=== PATIENT | male | born 1935 | race Caucasian/White ===

== ENCOUNTER → 2017-11-28 14:34 | Outpatient (CLI) | payer MEDICARE, SELFPAY ==
--- NOTE | 2017-11-28 14:36 | DI.RAD.S_ITS ---
PROCEDURE: XR HAND LT MIN 3V INDICATIONS: Bilateral hand OA TECHNIQUE: 3 views of the hand(s) acquired. COMPARISON: None. FINDINGS: Bones: Bones are diffusely osteopenic. There is diffuse interphalangeal joint space narrowing and osteophytosis. 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 A periarticular erosion is present at the distal aspect of the proximal phalanx of the third digit. No other erosive lesions in visualized. Soft tissues: No suspicious soft tissue calcifications. IMPRESSION: 1. Osteopenia and osteoarthritis. 2. Solitary erosion of the proximal phalanx of the third digit which may be associated with erosive arthritis. Please correlate clinically. Dictated by: Lakshmi Kirkpatrick M.D. on 11/28/2017 at 16:32 Approved by: Lakshmi Kirkpatrick M.D. on 11/28/2017 at 16:33
--- NOTE | 2017-11-28 14:36 | DI.RAD.S_ITS ---
PROCEDURE: XR HAND RT MIN 3V INDICATIONS: Bilateral hand OA TECHNIQUE: 3 views of the hand(s) acquired. COMPARISON: None. FINDINGS: Bones: Bones osteopenic. No acute fracture dislocation. There is extensive distal interphalangeal joint space narrowing and osteophytosis and mild proximal interphalangeal joint space narrowing. 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 No periarticular erosions. Soft tissues: No suspicious soft tissue calcifications. IMPRESSION: Right hand osteoarthritis. Dictated by: Lakshmi Kirkpatrick M.D. on 11/28/2017 at 16:34 Approved by: Lakshmi Kirkpatrick M.D. on 11/28/2017 at 16:35
== END ==
PROVIDERS: Family Provider Internal Medicine; PCP Internal Medicine; Visit Provider Physical Medicine & Rehabilitation
DX: M18.0 Bilateral primary osteoarthritis of first carpometacarpal joints (principal); M85.842 Other specified disorders of bone density and structure, left hand; M85.841 Other specified disorders of bone density and structure, right hand
CPT/HCPCS: 73130

== ENCOUNTER → 2017-12-01 10:49 | Outpatient (CLI) | payer MEDICARE, SELFPAY | PROVIDERS: Family Provider Internal Medicine; PCP Internal Medicine; Visit Provider Internal Medicine ==

== ENCOUNTER → 2017-12-07 13:58 | Outpatient (CLI) | payer MEDICARE, SELFPAY ==
--- NOTE | 2017-12-07 | OV.WND_ITS ---
Progress Note Details Patient Name: Tyler English Patient Number: [id number] PatientPatientDate: 12/07/2017 Clinician: Elizabeth Ba Clinician Cosigner: Holly Adair Physician / Chilling Hood Operator: Bro Mccarthy SUBJECTIVE Chief Complaint This information was obtained from the patient Non-healing wound to left leg, post MOHS Allergies NKDA HPI This information was obtained from the patient 12/07/17. Seen by Dr. Mccarthy. The patient's new to our clinic and presents with a left lower leg surgical wound following a Moh's procedure performed by Dr. Du'pily last . Due to the size of the wound it was unable to be sutured so will need to heal through secondary intention. The patient does not report pain or drainage from the site but does have a history of PAD in the leg with stents plus diabetes. In general however he's very active and healthy. Family History This information was obtained from the patient Cancer - Sibling, Diabetes - Father, Heart Disease - Mother, Father, Hypertension - Mother, Father, Lung Disease - Sibling, Seizures - Sibling Social History This information was obtained from the patient Former smoker - 1976, Alcohol Use - occasional, Caffeine Use - 4, Children - 3, Lives in - private home/ [place] in winter, Marital Status, Retired - sailed Past Medical History This information was obtained from the patient Patient has a medical history of: Arthritis Coronary Artery Disease (CAD) Type II Diabetes hearing loss Neuropathy Basal Cell Skin Cancer Surgical History This information was obtained from the patient Patient has a surgical history of: Mastectomy Aorta replacement, aneurysm repair Cholecystectomy R shoulder, rotator cuff. Coronary artery Bypass Complaints and Symptoms This information was obtained from the patient Patient complains of: General Notes: I have reviewed and concur with the Review of Systems and Past Family Social History documents completed by the clinician, I have reviewed and concur with the Wound Assessment document completed by the clinician Hematologic/Lymphatic: Bleeding Tendency Integumentary (Hair/Skin/Nails): Open Sore Prior Wound History: Bleeding, Drainage Patient denies complaints or symptoms related to: Cardiovascular (Central): Irregular heart beat Cardiovascular (Central/Peripheral): Intermittent Claudication, Lower extremity (leg) resting pain, Lower extremity (leg) swelling Constitutional Symptoms (General Health): Chills, Fever Ear/Nose/Mouth/Throat: Hearing Loss / Aid Hematologic/Lymphatic: Bleeding / Clotting Disorders Neurological: Loss of Protective Sensation Psychiatric: Memory Loss Respiratory: Shortness of Breath General Notes: Up to date Additional Information Does patient have a history of Cancer? Yes? Complete all questions.: Yes Location of Cancer: Skin Patient underwent Radiation Treatment? If yes, answer question below.: No Medications glipizide 5 mg tablet oral 2 2 tablet oral once daily Lipitor 20 mg tablet oral tablet oral once daily Diovan 80 mg tablet oral tablet oral once daily atenolol 25 mg tablet oral tablet oral once daily Centrum Silver 0.4 mg-300 mcg-250 mcg tablet oral tablet oral once daily Aspir-81 81 mg tablet,delayed release oral tablet,delayed release (DR/EC) oral once daily Plavix 75 mg tablet oral tablet oral once daily pantoprazole 40 mg tablet,delayed release oral tablet,delayed release (DR/EC) oral once daily zolpidem 10 mg tablet oral tablet oral take at bedtime isosorbide mononitrate ER 60 mg tablet,extended release 24 hr oral tablet extended release 24 hr oral once daily Vitamin D3 1,000 unit tablet oral tablet oral once daily OBJECTIVE Constitutional BP elevated; Afebrile; Alert and in no distress. Well developed. Alert. Clean appearing.. Height/Length: 66 in (167.64 cm), Weight: 177.6 lbs (80.73 kgs), BMI: 28.7, Temperature: 97.3 ?F (36.28 ?C), Pulse: 56 bpm, Respiratory Rate: 16 breaths/min, Blood Pressure: 171/66 mmHg, Capillary Blood Glucose: 122 mg/dl, Pulse Oximetry: 95 %. Ears, Nose, Mouth, and Throat: No clinically significant hearing loss on informal examination. Respiratory: No respiratory distress. Even respirations and without use of accessory muscles.. Cardiovascular: 1+ dorsalis pedis and posterior tibial on the right. Affected extremity exhibits no peripheral edema or cyanosis, is warm, and is well perfused. Capillary refill is less than 2 seconds. Integumentary (Hair, Skin) No periwound erythema, warmth, or significant drainage. No periwound rashes appreciated or noted otherwise.. Refer to appropriate clinician wound documentation for this visit; right lower leg wound extends to subcut with base partially covered with pink granulation, remainder fibrin and slough. Wound #1 Left, Anterior Leg is an acute Full Thickness Surgical Wound and has received a status of Not Healed. Initial wound encounter measurements are 2.3cm length x 2.5cm width x 0.3cm depth, with an area of 5.75 sq cm and a volume of 1.725 cubic cm. No tunneling has been noted. No sinus tract has been noted. No undermining has been noted. There is a moderate amount of serosanguineous drainage noted which has no odor. The patient reports a wound pain of level 0/10. The wound margin is attached. Wound bed has No epithelialization, No eschar, Yes slough, Yes bright red, pink, firm granulation. The periwound skin texture is normal. The periwound skin moisture is normal. The periwound skin color is normal. The temperature of the periwound skin is WNL. Periwound skin does not exhibit signs or symptoms of infection. Local Pulse is Doppler. Neurological: Cranial nerves grossly intact with symmetric function normal by informal observation.. ASSESSMENT Active Problems ICD-10 (Encounter Diagnosis) S81.801D - Unspecified open wound, right lower leg, subsequent encounter (Encounter Diagnosis) T81.31XD - Disruption of external operation (surgical) wound, not elsewhere classified, subsequent encounter PLAN Wound Orders: Wound #1 Left, Anterior Leg Anesthetic Topical Xylocaine to wound bed. - In clinic only Cleanser Cleanse Wound: - Normal saline in clinic. May use distilled water at home. May Shower. - Please avoid getting tap water in wound. Please cover while in the shower. May purchase a cast protector from the pharmacy. Topical Treatments Antibiotic/Antimicrobial Ointment/Cream. - Triple antibiotic ointment applied to wound base. Dressings Primary dressing: - Bordered Foam dressing Change Dressing: - Every other day. Additional Orders: Follow-Up Appointments Return Appointment: - - One week Other information: If you develop fever, chills, increased pain, drainage, redness or swelling please call our office. If after hours, respond to the ER. Should you experience any significant changes in your wound(s) or have any questions regarding your home care instructions please contact the wound center @ [phone]. If after hours, contact your primary care physician or go to the hospital emergency room. Scribing Attestation I attest, as the nurse, that I scribed these orders for the physician. I've reviewed the clinician's documentation and agree with the evaluation and plan as written. In addition the patient's wound demonstrates evidence of non-viable devitalized tissue which will continue to benefit from sharp debridement to help promote granulation and expedite healing. Also, we'll apply for insurance authorization for a MELVIN wound vac to possibly be placed as early as next week. Electronic Signature(s) Signed By: Date: Bro Mccarthy MD 12/08/2017 09:41:06 Entered By: Bro Mccarthy on 12/08/2017 08:45:52 Addendum at 12/20/2017 11:13:47 Left lower leg wound debridement is documented in the chart however progress note was saved and locked prior to refreshing note. Addendum Signed By: Bro Mccarthy on 12/20/2017 11:13:47
== END ==
PROVIDERS: Family Provider Internal Medicine; PCP Internal Medicine; Visit Provider Internal Medicine
DX: S81.801D Unspecified open wound, right lower leg, subsequent encounter (principal); T81.31XD Disruption of external operation (surgical) wound, not elsewhere classified, subsequent encounter; E11.9 Type 2 diabetes mellitus without complications; I70.209 Unspecified atherosclerosis of native arteries of extremities, unspecified extremity
CPT/HCPCS: 11042; 99213

== ENCOUNTER → 2017-12-12 11:49 | Outpatient (CLI) | payer MEDICARE, SELFPAY | PROVIDERS: Family Provider Internal Medicine; PCP Internal Medicine; Visit Provider Internal Medicine | DX: T81.31XD Disruption of external operation (surgical) wound, not elsewhere classified, subsequent encounter (principal); S81.802D Unspecified open wound, left lower leg, subsequent encounter; E11.628 Type 2 diabetes mellitus with other skin complications; I70.209 Unspecified atherosclerosis of native arteries of extremities, unspecified extremity | CPT/HCPCS: 99212 ==

== ENCOUNTER → 2017-12-15 09:47 | Outpatient (CLI) | payer MEDICARE, SELFPAY | PROVIDERS: Family Provider Internal Medicine; PCP Internal Medicine; Visit Provider Internal Medicine | DX: S81.802A Unspecified open wound, left lower leg, initial encounter (principal); T81.31XA Disruption of external operation (surgical) wound, not elsewhere classified, initial encounter | CPT/HCPCS: 11042 ==

== ENCOUNTER → 2017-12-25 08:51 | Outpatient (CLI) | payer MEDICARE, SELFPAY | PROVIDERS: Family Provider Internal Medicine; PCP Internal Medicine; Visit Provider Internal Medicine | DX: S81.801A Unspecified open wound, right lower leg, initial encounter (principal); T81.31XA Disruption of external operation (surgical) wound, not elsewhere classified, initial encounter | CPT/HCPCS: 11042 ==

== ENCOUNTER → 2018-01-01 08:53 | Outpatient (CLI) | payer MEDICARE, SELFPAY ==
--- NOTE | 2018-01-01 | OV.WND_ITS ---
Progress Note Details Patient Name: Tyler English Patient Number: [id number] PatientPatientDate: 01/01/2018 Clinician: Quiana Pereira Clinician Cosigner: Holly Adair Physician / Feeder Catcher: Bro Mccarthy SUBJECTIVE Chief Complaint This information was obtained from the patient Non-healing wound to left leg, post MOHS. Allergies NKDA HPI This information was obtained from the patient 01/01/18. Seen by Dr. Mccarthy. The patient does not report pain or significant drainage associated with the left lower leg non-pressure ulcer which started as a surgical wound following a Moh's procedure over a month ago. 12/25/17. Seen by Dr. Mccarthy. The patient does not report pain or significant drainage associated with the left lower leg surgical wound since his last visit. 12/15/17. Seen by Dr. Mccarthy. The patient does not report pain or significant drainage associated with the left lower leg surgical wound since his last visit. 12/07/17. Seen by Dr. Mccarthy. The patient's new to our clinic and presents with a left lower leg surgical wound following a Moh's procedure performed by Dr. Du'pily last . Due to the size of the wound it was unable to be sutured so will need to heal through secondary intention. The patient does not report pain or drainage from the site but does have a history of PAD in the leg with stents plus diabetes. In general however he's very active and healthy. Past Medical History This information was obtained from the patient Patient has a medical history of: Arthritis Coronary Artery Disease (CAD) Type II Diabetes Hearing loss Neuropathy Basal Cell Skin Cancer Complaints and Symptoms This information was obtained from the patient Patient complains of: General Notes: I have reviewed and concur with the Review of Systems and Past Family Social History documents completed by the clinician, I have reviewed and concur with the Wound Assessment document completed by the clinician Hematologic/Lymphatic: Bleeding Tendency Integumentary (Hair/Skin/Nails): Open Sore Prior Wound History: Bleeding, Drainage Patient denies complaints or symptoms related to: Cardiovascular (Central): Irregular heart beat Cardiovascular (Central/Peripheral): Intermittent Claudication, Lower extremity (leg) resting pain, Lower extremity (leg) swelling Constitutional Symptoms (General Health): Chills, Fever Ear/Nose/Mouth/Throat: Hearing Loss / Aid Hematologic/Lymphatic: Bleeding / Clotting Disorders Neurological: Loss of Protective Sensation Psychiatric: Memory Loss Respiratory: Shortness of Breath Additional Information Does patient have a history of Cancer? Yes? Complete all questions.: Yes Location of Cancer: Skin Patient underwent Radiation Treatment? If yes, answer question below.: No OBJECTIVE Constitutional BP elevated; Afebrile; Alert and in no distress. Well developed. Alert. Clean appearing.. Height/Length: 66 in (167.64 cm), Weight: 176.7 lbs (80.32 kgs), BMI: 28.5, Temperature: 97.6 ?F (36.44 ?C), Pulse: 75 bpm, Respiratory Rate: 18 breaths/min, Blood Pressure: 166/82 mmHg, Capillary Blood Glucose: 108 mg/dl, Pulse Oximetry: 95 %. Vital Signs Notes: Glucose per patient. Respiratory: No respiratory distress. Even respirations and without use of accessory muscles.. Cardiovascular: Pedal pulses 2+ on affected limb. Affected extremity exhibits no peripheral edema or cyanosis, is warm, and is well perfused. Capillary refill is less than 2 seconds. Integumentary (Hair, Skin) No periwound erythema, warmth, or significant drainage. No periwound rashes appreciated or noted otherwise.. Refer to appropriate clinician wound documentation for this visit; left lower leg ulcer extends to subcut with base partially covered with pink granulation, remainder fibrin and slough. Wound #1 Left, Anterior Leg is an acute Full Thickness Surgical Wound and has received a status of Not Healed. Subsequent wound encounter measurements are 1.6cm length x 1.9cm width x 0.1cm depth, with an area of 3.04 sq cm and a volume of 0.304 cubic cm. No tunneling has been noted. No sinus tract has been noted. No undermining has been noted. There is a moderate amount of purulent drainage noted which has no odor. The patient reports a wound pain of level 0/10. The wound margin is attached. Wound bed has Yes epithelialization, No eschar, Yes slough, Yes bright red, spongy granulation. The periwound skin texture is normal. The periwound skin moisture is normal. The periwound skin color is normal. The temperature of the periwound skin is WNL. Periwound skin does not exhibit signs or symptoms of infection. Local Pulse is Palpable. Neurological: Cranial nerves grossly intact with symmetric function normal by informal observation.. ASSESSMENT Active Problems ICD-10 (Encounter Diagnosis) S81.801D - Unspecified open wound, right lower leg, subsequent encounter (Encounter Diagnosis) T81.31XD - Disruption of external operation (surgical) wound, not elsewhere classified, subsequent encounter PROCEDURES Wound #1 Wound #1 (Surgical Wound) is located on the left, anterior leg. A skin/ subcutaneous tissue level surgical debridement with a total area debrided of 3.04 sq cm was performed by Bro Mccarthy MD. Subcutaneous was removed along with devitalized tissue: slough. The following instrument(s) were used: curette. Pain control was achieved using 4% Lido. A time out was conducted prior to the start of the procedure. A minimal amount of bleeding was controlled with n/a. The procedure was tolerated well with a pain level of 0 throughout and a pain level of 0 following the procedure. Post Debridement Measurements: 1.6cm length x 1.9cm width x 0.2cm depth; with an area of 3.04 sq cm and a volume of 0.608 cubic cm; Additional Information Muscle fascia or bone removed and sent to pathology?: No PLAN Wound Orders: Wound #1 Left, Anterior Leg Anesthetic Topical Xylocaine to wound bed. - In clinic only. Cleanser Cleanse Wound: - Normal saline in clinic. May use distilled water at home. May Shower. - Please avoid getting tap water in wound. Please cover while in the shower. Dressings Cover and secure with: - Silicone bordered foam. Change Dressing: - Every three days. Follow-Up Appointments Return Appointment: - - One week. Other information: If you develop fever, chills, increased pain, drainage, redness or swelling please call our office. If after hours, respond to the ER. Should you experience any significant changes in your wound(s) or have any questions regarding your home care instructions please contact the wound center @ [phone]. If after hours, contact your primary care physician or go to the hospital emergency room. Scribing Attestation I attest, as the nurse, that I scribed these orders for the physician. General Notes: Submitting insurance verification for MELVIN NPWT dressing I've reviewed the clinician's documentation and agree with the evaluation and plan as written. In addition, the patient's ulcer demonstrates evidence of non-viable devitalized tissue which will continue to benefit from sharp debridement to help promote granulation and expedite healing. Also, due to the very slow healing of the left lower leg non-pressure ulcer we' ll request insurance authorization for a MELVIN wound vac to help facilitate granulation and expedite healing. Electronic Signature(s) Signed By: Date: Bro Mccarthy MD 01/02/2018 06:42:32 Entered By: Bro Mccarthy on 01/02/2018 06:41:37
== END ==
PROVIDERS: Family Provider Internal Medicine; PCP Internal Medicine; Visit Provider Internal Medicine
DX: L97.822 Non-pressure chronic ulcer of other part of left lower leg with fat layer exposed (principal)
CPT/HCPCS: 11042

== ENCOUNTER → 2018-01-09 09:08 | Outpatient (CLI) | payer MEDICARE, SELFPAY ==
--- NOTE | 2018-01-09 | OV.WND_ITS ---
Progress Note Details Patient Name: Tyler English Patient Number: [id number] PatientPatientDate: 01/09/2018 Clinician: Quiana Pereira Clinician Cosigner: Elizabeth Ba Physician / [place] Painter: Bro Mccarthy SUBJECTIVE Chief Complaint This information was obtained from the patient Non-healing wound to left leg, post MOHS. Allergies NKDA HPI This information was obtained from the patient 01/09/18. Seen by Dr. Mccarthy. The patient does not report pain or significant drainage associated with the left lower leg non-pressure ulcer which started as a surgical wound following a Moh's procedure over a month ago. 01/01/18. Seen by Dr. Mccarthy. The patient does not report pain or significant drainage associated with the left lower leg non-pressure ulcer which started as a surgical wound following a Moh's procedure over a month ago. 12/25/17. Seen by Dr. Mccarthy. The patient does not report pain or significant drainage associated with the left lower leg surgical wound since his last visit. 12/15/17. Seen by Dr. Mccarthy. The patient does not report pain or significant drainage associated with the left lower leg surgical wound since his last visit. 12/07/17. Seen by Dr. Mccarthy. The patient's new to our clinic and presents with a left lower leg surgical wound following a Moh's procedure performed by Dr. Du'pily last . Due to the size of the wound it was unable to be sutured so will need to heal through secondary intention. The patient does not report pain or drainage from the site but does have a history of PAD in the leg with stents plus diabetes. In general however he's very active and healthy. Past Medical History This information was obtained from the patient Patient has a medical history of: Arthritis Coronary Artery Disease (CAD) Type II Diabetes Hearing loss Neuropathy Basal Cell Skin Cancer Complaints and Symptoms This information was obtained from the patient Patient complains of: General Notes: I have reviewed and concur with the Review of Systems and Past Family Social History documents completed by the clinician, I have reviewed and concur with the Wound Assessment document completed by the clinician Hematologic/Lymphatic: Bleeding Tendency Integumentary (Hair/Skin/Nails): Open Sore Prior Wound History: Bleeding, Drainage Patient denies complaints or symptoms related to: Cardiovascular (Central): Irregular heart beat Cardiovascular (Central/Peripheral): Intermittent Claudication, Lower extremity (leg) resting pain, Lower extremity (leg) swelling Constitutional Symptoms (General Health): Chills, Fever Ear/Nose/Mouth/Throat: Hearing Loss / Aid Hematologic/Lymphatic: Bleeding / Clotting Disorders Neurological: Loss of Protective Sensation Psychiatric: Memory Loss Respiratory: Shortness of Breath Additional Information Does patient have a history of Cancer? Yes? Complete all questions.: Yes Location of Cancer: Skin Patient underwent Radiation Treatment? If yes, answer question below.: No OBJECTIVE Constitutional BP elevated; Afebrile; Alert and in no distress. Well developed. Alert. Clean appearing.. Height/Length: 66 in (167.64 cm), Weight: 176.7 lbs (80.32 kgs), BMI: 28.5, ( 36.44 ?C), Pulse: 74 bpm, Respiratory Rate: 18 breaths/min, Blood Pressure: 154/69 mmHg, Capillary Blood Glucose: 110 mg/dl, Pulse Oximetry: 95 %. Vital Signs Notes: Glucose per patient Ears, Nose, Mouth, and Throat: No clinically significant hearing loss on informal examination. Respiratory: No respiratory distress. Even respirations and without use of accessory muscles.. Cardiovascular: Pedal pulses 2+ on affected limb. Affected extremity exhibits no peripheral edema or cyanosis, is warm, and is well perfused. Capillary refill is less than 2 seconds. Integumentary (Hair, Skin) No periwound erythema, warmth, or significant drainage. No periwound rashes appreciated or noted otherwise.. Refer to appropriate clinician wound documentation for this visit; left lower leg wound extends to subcut with base partially covered with pink granulation, remainder fibrin and slough. Wound #1 Left, Anterior Leg is an acute Full Thickness Surgical Wound and has received a status of Not Healed. Subsequent wound encounter measurements are 1.3cm length x 1.4cm width x 0.1cm depth, with an area of 1.82 sq cm and a volume of 0.182 cubic cm. No tunneling has been noted. No sinus tract has been noted. No undermining has been noted. There is a scant amount of serosanguineous drainage noted which has no odor. The patient reports a wound pain of level 0/10. The wound margin is attached. Wound bed has Yes epithelialization, No eschar, Yes slough, Yes bright red, spongy granulation. The periwound skin texture is normal. The periwound skin moisture is normal. The periwound skin color is normal. The temperature of the periwound skin is WNL. Periwound skin does not exhibit signs or symptoms of infection. Local Pulse is Palpable. Neurological: Cranial nerves grossly intact with symmetric function normal by informal observation.. ASSESSMENT Active Problems ICD-10 (Encounter Diagnosis) S81.801D - Unspecified open wound, right lower leg, subsequent encounter (Encounter Diagnosis) T81.31XD - Disruption of external operation (surgical) wound, not elsewhere classified, subsequent encounter PROCEDURES Wound #1 Wound #1 (Surgical Wound) is located on the left, anterior leg. A skin/ subcutaneous tissue level surgical debridement with a total area debrided of 1.82 sq cm was performed by Bro Mccarthy MD. Subcutaneous was removed along with devitalized tissue: slough. The following instrument(s) were used: curette. Pain control was achieved using 4% Lido. A time out was conducted prior to the start of the procedure. A minimal amount of bleeding was controlled with n/a. The procedure was tolerated well with a pain level of 0 throughout and a pain level of 0 following the procedure. Post Debridement Measurements: 1.3cm length x 1.4cm width x 0.2cm depth; with an area of 1.82 sq cm and a volume of 0.364 cubic cm; Wound #1 (Surgical Wound) is located on the left, anterior leg. A Disposable Wound Vac Application < 50 Sq Cm procedure was performed for the lower left extremity by Bro Mccarthy MD. A time out was conducted prior to the start of the procedure. The procedure was tolerated well with pain level of 0 throughout and a pain level of 0 following the procedure. General Notes: MELVIN 4x8 Additional Information Muscle fascia or bone removed and sent to pathology?: No PLAN Wound Orders: Wound #1 Left, Anterior Leg Anesthetic Topical Xylocaine to wound bed. - In clinic only. Cleanser Cleanse Wound: - Normal saline in clinic. May use distilled water at home. May Shower. - Please avoid getting tap water in wound. Please cover while in the shower. Topical Treatments Antibiotic/Antimicrobial Ointment/Cream. - Gentamicin ointment. Dressings Primary dressing: - MELVIN 4X8 Change Dressing: - Leave it until next visit. Follow-Up Appointments Return Appointment: - - One week. Other information: If you develop fever, chills, increased pain, drainage, redness or swelling please call our office. If after hours, respond to the ER. Should you experience any significant changes in your wound(s) or have any questions regarding your home care instructions please contact the wound center @ [phone]. If after hours, contact your primary care physician or go to the hospital emergency room. Scribing Attestation I attest, as the nurse, that I scribed these orders for the physician. I've reviewed the clinician's documentation and agree with the evaluation and plan as written. In addition the patient's wound demonstrates evidence of non-viable devitalized tissue which will continue to benefit from sharp debridement to help promote granulation and expedite healing. Negative pressure wound therapy will be utilized to facilitate granulation and removal of exudate and infectious material with the goal of expediting wound healing. Electronic Signature(s) Signed By: Date: Bro Mccarthy MD 01/10/2018 06:59:08 Entered By: Bro Mccarthy on 01/10/2018 06:48:43
== END ==
PROVIDERS: Family Provider Internal Medicine; PCP Internal Medicine; Visit Provider Internal Medicine
DX: L97.812 Non-pressure chronic ulcer of other part of right lower leg with fat layer exposed (principal)
CPT/HCPCS: 11042; 97607

== ENCOUNTER → 2018-01-16 10:42 | Outpatient (CLI) | payer MEDICARE, SELFPAY ==
--- NOTE | 2018-01-16 | OV.WND_ITS ---
Progress Note Details Patient Name: Tyler English Patient Number: [id number] PatientPatientDate: 01/16/2018 Clinician: Sena Caldwell Clinician Cosigner: Holly Adair Physician / [employer]: Bro Mccarthy SUBJECTIVE Chief Complaint This information was obtained from the patient Non-healing wound to left leg, post MOHS. Allergies NKDA HPI This information was obtained from the patient 01/16/18. Seen by Dr. Mccarthy. The patient does not report pain or significant drainage associated with the left lower leg non-pressure ulcer since his last visit. 01/09/18. Seen by Dr. Mccarthy. The patient does not report pain or significant drainage associated with the left lower leg non-pressure ulcer which started as a surgical wound following a Moh's procedure over a month ago. 01/01/18. Seen by Dr. Mccarthy. The patient does not report pain or significant drainage associated with the left lower leg non-pressure ulcer which started as a surgical wound following a Moh's procedure over a month ago. 12/25/17. Seen by Dr. Mccarthy. The patient does not report pain or significant drainage associated with the left lower leg surgical wound since his last visit. 12/15/17. Seen by Dr. Mccarthy. The patient does not report pain or significant drainage associated with the left lower leg surgical wound since his last visit. 12/07/17. Seen by Dr. Mccarthy. The patient's new to our clinic and presents with a left lower leg surgical wound following a Moh's procedure performed by Dr. Du'pily last . Due to the size of the wound it was unable to be sutured so will need to heal through secondary intention. The patient does not report pain or drainage from the site but does have a history of PAD in the leg with stents plus diabetes. In general however he's very active and healthy. Family History This information was obtained from the patient Cancer - Sibling, Diabetes - Father, Heart Disease - Mother, Father, Hypertension - Mother, Father, Lung Disease - Sibling, Seizures - Sibling Social History This information was obtained from the patient Former smoker - 1976, Alcohol Use - occasional, Caffeine Use - 4, Children - 3, Lives in - private home/ [place] in winter, Marital Status, Retired - sailed Past Medical History This information was obtained from the patient Patient has a medical history of: Arthritis Coronary Artery Disease (CAD) Type II Diabetes Hearing loss Neuropathy Basal Cell Skin Cancer Surgical History This information was obtained from the patient Patient has a surgical history of: Mastectomy Aorta replacement, aneurysm repair Cholecystectomy R shoulder, rotator cuff. Coronary artery Bypass Mohs procedures (L leg) Complaints and Symptoms This information was obtained from the patient Patient complains of: General Notes: I have reviewed and concur with the Review of Systems and Past Family Social History documents completed by the clinician, I have reviewed and concur with the Wound Assessment document completed by the clinician Hematologic/Lymphatic: Bleeding Tendency Integumentary (Hair/Skin/Nails): Open Sore Prior Wound History: Bleeding, Drainage Patient denies complaints or symptoms related to: Cardiovascular (Central): Irregular heart beat Cardiovascular (Central/Peripheral): Intermittent Claudication, Lower extremity (leg) resting pain, Lower extremity (leg) swelling Constitutional Symptoms (General Health): Chills, Fever Ear/Nose/Mouth/Throat: Hearing Loss / Aid Hematologic/Lymphatic: Bleeding / Clotting Disorders Neurological: Loss of Protective Sensation Psychiatric: Memory Loss Respiratory: Shortness of Breath Additional Information Does patient have a history of Cancer? Yes? Complete all questions.: Yes Location of Cancer: Skin Patient underwent Radiation Treatment? If yes, answer question below.: No OBJECTIVE Constitutional Vital signs reviewed and noted. Well developed. Alert. Clean appearing.. Height/ Length: 66 in (167.64 cm), Weight: 175.8 lbs (79.91 kgs), BMI: 28.4, Temperature: 97.1 ?F ( 36.17 ?C), Pulse: 71 bpm, Respiratory Rate: 18 breaths/min, Blood Pressure: 130/71 mmHg, Capillary Blood Glucose: 105 mg/dl, Pulse Oximetry: 95 %. Vital Signs Notes: Glucose per patient. Cardiovascular: Affected extremity exhibits no peripheral edema or cyanosis, is warm, and is well perfused. Capillary refill is less than 2 seconds. Integumentary (Hair, Skin) No periwound erythema, warmth, or significant drainage. No periwound rashes appreciated or noted otherwise.. Refer to appropriate clinician wound documentation for this visit; left lower leg ulcer extends to subcut with base partially covered with pink granulation, remainder fibrin and slough. Wound #1 Left, Anterior Leg is an acute Full Thickness Surgical Wound and has received a status of Not Healed. Subsequent wound encounter measurements are 1.5cm length x 1.4cm width x 0.1cm depth, with an area of 2.1 sq cm and a volume of 0.21 cubic cm. No tunneling has been noted. No sinus tract has been noted. No undermining has been noted. There is a moderate amount of serous drainage noted which has no odor. The patient reports a wound pain of level 0/10. The wound margin is attached. Wound bed has Yes epithelialization, No eschar, Yes slough, Yes bright red, pink, spongy granulation. The periwound skin texture is normal. The periwound skin moisture is normal. The periwound skin color is normal. The temperature of the periwound skin is WNL. Periwound skin does not exhibit signs or symptoms of infection. Local Pulse is Palpable. Neurological: Cranial nerves grossly intact with symmetric function normal by informal observation.. ASSESSMENT Active Problems ICD-10 (Encounter Diagnosis) S81.801D - Unspecified open wound, right lower leg, subsequent encounter (Encounter Diagnosis) T81.31XD - Disruption of external operation (surgical) wound, not elsewhere classified, subsequent encounter PROCEDURES Wound #1 Wound #1 (Surgical Wound) is located on the left, anterior leg. A skin/ subcutaneous tissue level surgical debridement with a total area debrided of 2.1 sq cm was performed by Bro Mccarthy MD. Subcutaneous was removed along with devitalized tissue: exudate and slough. The following instrument(s) were used: curette. Pain control was achieved using 4% Lido. A time out was conducted prior to the start of the procedure. A minimal amount of bleeding was controlled with pressure. The procedure was tolerated well with a pain level of 0 throughout and a pain level of 0 following the procedure. Post Debridement Measurements: 1.5cm length x 1.4cm width x 0.2cm depth; with an area of 2.1 sq cm and a volume of 0.42 cubic cm; Wound #1 (Surgical Wound) is located on the left, anterior leg. A Disposable Wound Vac Application < 50 Sq Cm procedure was performed for the lower left extremity by Bro Mccarthy MD. A time out was conducted prior to the start of the procedure. The procedure was tolerated well with pain level of 0 throughout and a pain level of 0 following the procedure. General Notes: MELVIN 4x8. Additional Information Muscle fascia or bone removed and sent to pathology?: No PLAN Wound Orders: Wound #1 Left, Anterior Leg Anesthetic Topical Xylocaine to wound bed. - In clinic only. Cleanser Cleanse Wound: - Normal saline in clinic. May use distilled water at home. May Shower. - Please avoid getting tap water in wound. Please cover while in the shower. Dressings Wound Vac: - MELVIN 4X8. Change Dressing: - Leave it until next visit. Follow-Up Appointments Return Appointment: - - One week. Other information: If you develop fever, chills, increased pain, drainage, redness or swelling please call our office. If after hours, respond to the ER. Should you experience any significant changes in your wound(s) or have any questions regarding your home care instructions please contact the wound center @ [phone]. If after hours, contact your primary care physician or go to the hospital emergency room. Scribing Attestation I attest, as the nurse, that I scribed these orders for the physician. I've reviewed the clinician's documentation and agree with the evaluation and plan as written. In addition, the patient's ulcer demonstrates evidence of non-viable devitalized tissue which will continue to benefit from sharp debridement to help promote granulation and expedite healing. Negative pressure wound therapy will be utilized to facilitate granulation and removal of exudate and infectious material with the goal of expediting wound healing. Electronic Signature(s) Signed By: Date: Bro Mccarthy MD 01/17/2018 06:45:54 Entered By: Bro Mccarthy on 01/17/2018 06:09:45
== END ==
PROVIDERS: Family Provider Internal Medicine; PCP Internal Medicine; Visit Provider Internal Medicine
DX: L97.822 Non-pressure chronic ulcer of other part of left lower leg with fat layer exposed (principal); E11.628 Type 2 diabetes mellitus with other skin complications
CPT/HCPCS: 11042; 97607

== ENCOUNTER → 2018-01-23 13:36 | Outpatient (CLI) | payer MEDICARE, SELFPAY ==
--- NOTE | 2018-01-23 | OV.WND_ITS ---
Progress Note Details Patient Name: Tyler English Patient Number: [id number] PatientPatientDate: 01/23/2018 Clinician: Quiana Pereira Physician / Painter Supervisor: Bro Mccarthy SUBJECTIVE Chief Complaint This information was obtained from the patient Non-healing wound to left leg, post MOHS. Allergies NKDA HPI This information was obtained from the patient 01/23/18. Seen by Dr. Mccarthy. The patient does not report pain or significant drainage associated with the left lower leg non-pressure ulcer since his last visit. 01/16/18. Seen by Dr. Mccarthy. The patient does not report pain or significant drainage associated with the left lower leg non-pressure ulcer since his last visit. 01/09/18. Seen by Dr. Mccarthy. The patient does not report pain or significant drainage associated with the left lower leg non-pressure ulcer which started as a surgical wound following a Moh's procedure over a month ago. 01/01/18. Seen by Dr. Mccarthy. The patient does not report pain or significant drainage associated with the left lower leg non-pressure ulcer which started as a surgical wound following a Moh's procedure over a month ago. 12/25/17. Seen by Dr. Mccarthy. The patient does not report pain or significant drainage associated with the left lower leg surgical wound since his last visit. 12/15/17. Seen by Dr. Mccarthy. The patient does not report pain or significant drainage associated with the left lower leg surgical wound since his last visit. 12/07/17. Seen by Dr. Mccarthy. The patient's new to our clinic and presents with a left lower leg surgical wound following a Moh's procedure performed by Dr. Du'pily last . Due to the size of the wound it was unable to be sutured so will need to heal through secondary intention. The patient does not report pain or drainage from the site but does have a history of PAD in the leg with stents plus diabetes. In general however he's very active and healthy. Past Medical History This information was obtained from the patient Patient has a medical history of: Arthritis Coronary Artery Disease (CAD) Type II Diabetes Hearing loss Neuropathy Basal Cell Skin Cancer Complaints and Symptoms This information was obtained from the patient Patient complains of: General Notes: I have reviewed and concur with the Review of Systems and Past Family Social History documents completed by the clinician, I have reviewed and concur with the Wound Assessment document completed by the clinician Hematologic/Lymphatic: Bleeding Tendency Integumentary (Hair/Skin/Nails): Open Sore Prior Wound History: Bleeding, Drainage Patient denies complaints or symptoms related to: Cardiovascular (Central): Irregular heart beat Cardiovascular (Central/Peripheral): Intermittent Claudication, Lower extremity (leg) resting pain, Lower extremity (leg) swelling Constitutional Symptoms (General Health): Chills, Fever Ear/Nose/Mouth/Throat: Hearing Loss / Aid Hematologic/Lymphatic: Bleeding / Clotting Disorders Neurological: Loss of Protective Sensation Psychiatric: Memory Loss Respiratory: Shortness of Breath Additional Information Does patient have a history of Cancer? Yes? Complete all questions.: Yes Location of Cancer: Skin Patient underwent Radiation Treatment? If yes, answer question below.: No OBJECTIVE Constitutional BP elevated; Afebrile; Alert and in no distress. Well developed. Alert. Clean appearing.. Height/Length: 66 in (167.64 cm), Weight: 175.8 lbs (79.91 kgs), BMI: 28.4, Temperature: 98.2 ?F (36.78 ?C), Pulse: 65 bpm, Respiratory Rate: 18 breaths/min, Blood Pressure: 156/78 mmHg, Capillary Blood Glucose: 110 mg/dl, Pulse Oximetry: 96 %. Vital Signs Notes: Glucose per patient Respiratory: No respiratory distress. Even respirations and without use of accessory muscles.. Integumentary (Hair, Skin) No periwound erythema, warmth, or significant drainage. No periwound rashes appreciated or noted otherwise.. Refer to appropriate clinician wound documentation for this visit; left lower leg ulcer extends to subcut with base partially covered with pink granulation, remainder fibrin and slough; much improved in terms of granulation. Wound #1 Left, Anterior Leg is an acute Full Thickness Surgical Wound and has received a status of Not Healed. Subsequent wound encounter measurements are 1.2cm length x 1.1cm width x 0.1cm depth, with an area of 1.32 sq cm and a volume of 0.132 cubic cm. No tunneling has been noted. No sinus tract has been noted. No undermining has been noted. There is a moderate amount of serosanguineous drainage noted which has no odor. The patient reports a wound pain of level 0/10. The wound margin is attached. Wound bed has Yes epithelialization, No eschar, Yes slough, Yes bright red, pink, spongy granulation. The periwound skin texture is normal. The periwound skin moisture is normal. The periwound skin color is normal. The temperature of the periwound skin is WNL. Periwound skin does not exhibit signs or symptoms of infection. Local Pulse is Palpable. Neurological: Cranial nerves grossly intact with symmetric function normal by informal observation.. ASSESSMENT Active Problems ICD-10 (Encounter Diagnosis) S81.801D - Unspecified open wound, right lower leg, subsequent encounter (Encounter Diagnosis) T81.31XD - Disruption of external operation (surgical) wound, not elsewhere classified, subsequent encounter PROCEDURES Wound #1 Wound #1 (Surgical Wound) is located on the left, anterior leg. A skin/ subcutaneous tissue level surgical debridement with a total area debrided of 1.32 sq cm was performed by Bro Mccarthy MD. Subcutaneous was removed along with devitalized tissue: slough. The following instrument(s) were used: curette. Pain control was achieved using 4% Lido. A time out was conducted prior to the start of the procedure. A minimal amount of bleeding was controlled with n/a. The procedure was tolerated well with a pain level of 0 throughout and a pain level of 0 following the procedure. Post Debridement Measurements: 1.2cm length x 1.1cm width x 0.2cm depth; with an area of 1.32 sq cm and a volume of 0.264 cubic cm; Additional Information Muscle fascia or bone removed and sent to pathology?: No PLAN Wound Orders: Wound #1 Left, Anterior Leg Anesthetic Topical Xylocaine to wound bed. - In clinic only. Cleanser Cleanse Wound: - Normal saline in clinic. May use distilled water at home. May Shower. - Please avoid getting tap water in wound. Please cover while in the shower. Dressings Primary dressing: - Border foam Change Dressing: - Every 2 days Follow-Up Appointments Return Appointment: - - One week. Other information: If you develop fever, chills, increased pain, drainage, redness or swelling please call our office. If after hours, respond to the ER. Should you experience any significant changes in your wound(s) or have any questions regarding your home care instructions please contact the wound center @ [phone]. If after hours, contact your primary care physician or go to the hospital emergency room. Scribing Attestation I attest, as the nurse, that I scribed these orders for the physician. I've reviewed the clinician's documentation and agree with the evaluation and plan as written. In addition, the patient's ulcer demonstrates evidence of non-viable devitalized tissue which will continue to benefit from sharp debridement to help promote granulation and expedite healing. Electronic Signature(s) Signed By: Date: Bro Mccarthy MD 01/26/2018 07:29:40 Entered By: Bro Mccarthy on 01/26/2018 07:13:27
== END ==
PROVIDERS: Family Provider Internal Medicine; PCP Internal Medicine; Visit Provider Internal Medicine
DX: L97.822 Non-pressure chronic ulcer of other part of left lower leg with fat layer exposed (principal); E11.628 Type 2 diabetes mellitus with other skin complications
CPT/HCPCS: 11042

== ENCOUNTER → 2018-02-02 10:35 | Outpatient (CLI) | payer MEDICARE, SELFPAY ==
--- NOTE | 2018-02-02 | OV.WND_ITS ---
Progress Note Details Patient Name: Tyler English Patient Number: [id number] PatientPatientDate: 02/02/2018 Clinician: Elizabeth Ba Physician / Gold Assayer: Bro Mccarthy SUBJECTIVE Chief Complaint This information was obtained from the patient Non-healing wound to left leg, post MOHS. Allergies NKDA HPI This information was obtained from the patient 02/02/18. Seen by Dr. Mccarthy. The patient does not report pain or significant drainage associated with the left lower leg non-pressure ulcer since his last visit. 01/23/18. Seen by Dr. Mccarthy. The patient does not report pain or significant drainage associated with the left lower leg non-pressure ulcer since his last visit. 01/16/18. Seen by Dr. Mccarthy. The patient does not report pain or significant drainage associated with the left lower leg non-pressure ulcer since his last visit. 01/09/18. Seen by Dr. Mccarthy. The patient does not report pain or significant drainage associated with the left lower leg non-pressure ulcer which started as a surgical wound following a Moh's procedure over a month ago. 01/01/18. Seen by Dr. Mccatrhy. The patient does not report pain or significant drainage associated with the left lower leg non-pressure ulcer which started as a surgical wound following a Moh's procedure over a month ago. 12/25/17. Seen by Dr. Mccarthy. The patient does not report pain or significant drainage associated with the left lower leg surgical wound since his last visit. 12/15/17. Seen by Dr. Mccarthy. The patient does not report pain or significant drainage associated with the left lower leg surgical wound since his last visit. 12/07/17. Seen by Dr. Mccarthy. The patient's new to our clinic and presents with a left lower leg surgical wound following a Moh's procedure performed by Dr. Du'pily last . Due to the size of the wound it was unable to be sutured so will need to heal through secondary intention. The patient does not report pain or drainage from the site but does have a history of PAD in the leg with stents plus diabetes. In general however he's very active and healthy. Past Medical History This information was obtained from the patient Patient has a medical history of: Arthritis Coronary Artery Disease (CAD) Type II Diabetes Hearing loss Neuropathy Basal Cell Skin Cancer Complaints and Symptoms This information was obtained from the patient Patient complains of: General Notes: I have reviewed and concur with the Review of Systems and Past Family Social History documents completed by the clinician, I have reviewed and concur with the Wound Assessment document completed by the clinician Hematologic/Lymphatic: Bleeding Tendency Integumentary (Hair/Skin/Nails): Open Sore Prior Wound History: Bleeding, Drainage Patient denies complaints or symptoms related to: Cardiovascular (Central): Irregular heart beat Cardiovascular (Central/Peripheral): Intermittent Claudication, Lower extremity (leg) resting pain, Lower extremity (leg) swelling Constitutional Symptoms (General Health): Chills, Fever Ear/Nose/Mouth/Throat: Hearing Loss / Aid Hematologic/Lymphatic: Bleeding / Clotting Disorders Neurological: Loss of Protective Sensation Psychiatric: Memory Loss Respiratory: Shortness of Breath Additional Information Does patient have a history of Cancer? Yes? Complete all questions.: Yes Location of Cancer: Skin Patient underwent Radiation Treatment? If yes, answer question below.: No OBJECTIVE Constitutional BP elevated; Afebrile; Alert and in no distress. Well developed. Alert. Clean appearing.. Height/Length: 66 in (167.64 cm), Weight: 175.8 lbs (79.91 kgs), BMI: 28.4, Temperature: 98.3 ?F (36.83 ?C), Pulse: 70 bpm, Respiratory Rate: 18 breaths/min, Blood Pressure: 149/70 mmHg, Capillary Blood Glucose: 122 mg/dl, Pulse Oximetry: 95 %. Vital Signs Notes: Glucose per patient Ears, Nose, Mouth, and Throat: No clinically significant hearing loss on informal examination. Respiratory: No respiratory distress. Even respirations and without use of accessory muscles.. Integumentary (Hair, Skin) No periwound erythema, warmth, or significant drainage. No periwound rashes appreciated or noted otherwise.. Refer to appropriate clinician wound documentation for this visit; left lower leg ulcer nearly healed with approx 3mm open and extending to dermis. Wound #1 Left, Anterior Leg is an acute Full Thickness Surgical Wound and has received an outcome of Continued improvement expected post discharge. Subsequent wound encounter measurements are 0.2cm length x 0.2cm width x 0.1cm depth, with an area of 0.04 sq cm and a volume of 0.004 cubic cm. No tunneling has been noted. No sinus tract has been noted. No undermining has been noted. There is a moderate amount of serosanguineous drainage noted which has no odor. The patient reports a wound pain of level 0/10. The wound margin is attached. Wound bed has Yes epithelialization, No eschar, No slough, Yes bright red, pink, spongy granulation. The periwound skin texture is normal. The periwound skin moisture is normal. The periwound skin color is normal. The temperature of the periwound skin is WNL. Periwound skin does not exhibit signs or symptoms of infection. Local Pulse is Palpable. Neurological: Cranial nerves grossly intact with symmetric function normal by informal observation.. ASSESSMENT Active Problems ICD-10 (Encounter Diagnosis) S81.801D - Unspecified open wound, right lower leg, subsequent encounter (Encounter Diagnosis) T81.31XD - Disruption of external operation (surgical) wound, not elsewhere classified, subsequent encounter PLAN Wound Orders: Wound #1 Left, Anterior Leg Anesthetic Topical Xylocaine to wound bed. - In clinic only. Cleanser Cleanse Wound: - Normal saline in clinic. May use distilled water at home. May Shower. - Please avoid getting tap water in wound. Please cover while in the shower. Dressings Primary dressing: - Border foam Change Dressing: - Every 3 days Follow-Up Appointments Return Appointment: - - May follow up with in [place] if wound remains open. Other information: If you develop fever, chills, increased pain, drainage, redness or swelling please call our office. If after hours, respond to the ER. Should you experience any significant changes in your wound(s) or have any questions regarding your home care instructions please contact the wound center @ [phone]. If after hours, contact your primary care physician or go to the hospital emergency room. Scribing Attestation I attest, as the nurse, that I scribed these orders for the physician. I've reviewed the clinician's documentation and agree with the evaluation and plan as written. In addition the patient's last remiaining complex wound is now healed. The patient is invited to return to our clinic for treatment of any future complex wounds. Post wound care and strategies to avoid recurrences were discussed. Electronic Signature(s) Signed By: Date: Bro Mccarthy MD 02/05/2018 06:58:18 Entered By: Bro Mccarthy on 02/05/2018 06:43:53
== END ==
PROVIDERS: Family Provider Internal Medicine; PCP Internal Medicine; Visit Provider Internal Medicine
DX: S81.801D Unspecified open wound, right lower leg, subsequent encounter (principal); T81.31XD Disruption of external operation (surgical) wound, not elsewhere classified, subsequent encounter
CPT/HCPCS: 99213

== ENCOUNTER → 2018-11-08 11:58 | Outpatient (CLI) | payer MEDICARE, SELFPAY ==
--- NOTE | 2018-11-08 | DI.US.S_ITS ---
PROCEDURE: US ABD AORTA ANEURYSM SCREEN INDICATIONS: CLAUDICATION. Peripheral vascular disease. Additional history: New claudication in the right upper leg. 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 Remote ascending aortic aneurysm 1976. 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 TECHNIQUE: Real time scanning was performed of the aorta and iliac arteries, with image documentation. COMPARISON: Lower extremity arterial ultrasound 11/08/2018, abdominal aorta and lower extremity ultrasound 11/23/2017. FINDINGS: Portions of the aorta are not well visualized do to suboptimal acoustic windows. Aorta: Findings of prior aortic aneurysm graft repair. Proximal aortic diameter measures 3.3 x 3.1 cm. PSV 37 cm/s Mid-aorta measures 2.8 x 2.8 cm. PSV 85 cm/s Distal aortic diameter is 3.2 x 3.2 cm. PSV 88 cm/s Iliac arteries: Right common iliac artery measures 1.6 cm. Flow is not identified. Left common iliac artery measures 1.7 x 2.2 cm. PSV 211 cm/s IMPRESSION: 1. Patent abdominal aortic aneurysm graft repair. 2. No flow detected in the right common iliac graft limb. Given the new symptoms of claudication in the right upper leg this may be due to an acute or subacute occlusion. CTA abdominal aorta and runoff could be performed for further evaluation. 3. Elevated velocities in the left common iliac graft limb. Comment: Findings were discussed with Joann on behalf of Dr. Rivers (partner of Dr. Santa Astudillo) at the time of dictation. Dictated by: Anurag Elias M.D. on 11/19/2018 at 14:50 Approved by: Anurag Elias M.D. on 11/19/2018 at 15:16
--- NOTE | 2018-11-08 | DI.US.S_ITS ---
PROCEDURE: US ARTERIAL DUPLEX LE RT INDICATIONS: CLAUDICATION TECHNIQUE: Color and pulse Doppler interrogation was performed of the right lower extremity arterial system, with image documentation. COMPARISON: Abdominal and lower extremity ultrasound 11/23/2017. FINDINGS: Right side: Common femoral artery: No flow detected. Collateral vessels identified. Patent on the prior exam from November 2017. Deep femoral artery: 25 cm/sec, with reversed monophasic flow. Ruby superficial femoral artery: No flow detected. Femoropopliteal artery graft: -Proximal: 67 cm/sec, with monophasic flow. -Mid: 45 cm/sec, with monophasic flow. -Distal: 36 cm/sec, with monophasic flow. Popliteal artery: 14 cm/sec, with monophasic flow. 18 cm/sec at the graft anastomosis. Tibioperitoneal trunk: 28 cm/sec, with monophasic flow. Posterior tibial artery: 10-50 cm/sec, with monophasic flow. Anterior tibial artery/dorsalis pedis: 10 cm/sec, with monophasic flow. Meyer-scale imaging description: Scattered atherosclerotic plaque. Left side: Distal left aortic graft: 421 cm/sec. Critical stenosis. Common femoral artery: Proximal 253 cm/sec, with monophasic flow. Mid 92 cm/sec and distal 43 cm/sec. Left lower extremity anastomosis 261 cm/sec. Deep femoral artery: 59 cm/sec, with monophasic flow. Ruby superficial femoral artery: Scant monophasic flow. Popliteal artery: 34 cm/sec, with biphasic flow. Distal 88 cm/sec. Posterior tibial artery: 20 cm/sec, with monophasic flow. Anterior tibial artery/dorsalis pedis: 46 cm/sec, with monophasic flow. Meyer-scale imaging description: Scattered atherosclerotic plaque. IMPRESSION: 1. Newly demonstrated occlusion of the right [employer], probably acute or subacute given the new onset symptoms of claudication in the right lower extremity. 2. Right femoral-popliteal bypass graft remains patent. 3. Critical stenoses in the left distal aortic graft and left lower extremity bypass graft. Scant flow in the left superficial femoral artery. Dictated by: Anurag Elias M.D. on 11/19/2018 at 15:16 Approved by: Anurag Elias M.D. on 11/19/2018 at 15:44
== END ==
PROVIDERS: Family Provider Internal Medicine; PCP Internal Medicine; Visit Provider Internal Medicine
DX: I70.212 Atherosclerosis of native arteries of extremities with intermittent claudication, left leg (principal); T82.858A Stenosis of other vascular prosthetic devices, implants and grafts, initial encounter
CPT/HCPCS: 76706; 93926

== ENCOUNTER → 2019-01-30 15:17 | Outpatient (ROUT) | payer MEDICARE, SELFPAY ==
[2019-01-30 15:37] LABS: Add Manual Diff / Slide Review NO; Basophils Absolute Auto 0 /uL (0-100); Basophils Percent Auto 0.7 % (0-2); Eosinophils Absolute Auto 100 /uL (0-450); Eosinophils Percent Auto 1.4 % (2-4); Hematocrit 37.8 % (41-53); Hemoglobin 13.1 g/dL (13.5-17.5); Lymphocytes Absolute Auto 1400 /uL (1100-4500); Lymphocytes Percent Auto 21.8 % (25-40); Mean Corpuscular HGB Conc 34.7 % (30-36); Mean Corpuscular Hemoglobin 33.7 PG (26-34); Mean Corpuscular Volume 97.2 fL (80-100); Monocytes Absolute Auto 500 /uL (0-900); Monocytes Percent Auto 7.4 % (3-14); Neutrophils Absolute Auto 4400 /uL (1500-7000); Neutrophils Percent Auto 68.7 % (50-75); Platelet Count 198 X10^3/uL (150-400); Red Blood Cell Count 3.89 X10^6/uL (4.5-5.9); Red Cell Distribution Width 14.1 % (11.6-14.8); White Blood Cell Count 6.4 X10^3/uL (4.5-11.0)
[2019-01-30 15:51] LABS: Alanine Aminotransferase 33 IU/L (21-72); Albumin Globulin Ratio 1.5 (1.0-2.8); Alkaline Phosphatase 69 U/L (38-126); Aspartate Aminotransferase 22 IU/L (17-59); BUN Creatinine Ratio 20.8 (6-22); Bilirubin Total 0.7 mg/dL (0.2-1.3); Blood Urea Nitrogen 25 mg/dL (9-20); Calcium 9.4 mg/dL (8.4-10.2); Carbon Dioxide 25 mmol/L (22-32); Chloride 103 mmol/L (98-107); Cholesterol 139 mg/dL (140-199); Estimated Glomerular Filt Rate 57.8 mL/min (>60); Globulin 2.6 g/dL (1.7-4.1); Glucose 123 mg/dL (80-110); HDL Cholesterol 30 mg/dL (40-60); HEMOLYSIS < 15 (0-50); LDL Cholesterol Calculated 89 mg/dL (<100); Potassium 4.3 mmol/L (3.4-5.1); Sodium 139 mmol/L (137-145); Total Protein 6.6 g/dL (6.3-8.2); Triglycerides 99 mg/dL (35-150)
[2019-01-30 16:20] LABS: TSH w/ Reflex to FT4 3.68 uIU/mL (0.47-4.68)
== END ==
PROVIDERS: Family Provider Internal Medicine; PCP Internal Medicine; Visit Provider Internal Medicine
DX: I78.9 Disease of capillaries, unspecified (principal); E78.2 Mixed hyperlipidemia
CPT/HCPCS: 80053; 80061; 84443; 85025

== ENCOUNTER 2019-09-16 08:41 | Observation (INO) | payer MEDICARE, SELFPAY ==
[2019-09-16] VITALS (9 sets, daily range): BP systolic 131–196; BP diastolic 60–108; PULSE 68–77; RESP 12–19; TEMP 36.3–36.6; O2SAT 91–97; BMI 33.5
[2019-09-16 09:25] LABS: INR 1.1 (0.9-1.3); Prothrombin Time 12.8 SECONDS (10.1-12.7)
--- NOTE | 2019-09-16 09:25 | ED_ITS ---
HPI - Abdominal Pain General Chief Complaint: Abdominal Pain Stated Complaint: stomach pain Time Seen by Provider: 09/16/19 09:15 Source: patient Mode of arrival: Ambulatory History of Present Illness HPI narrative: CC: No bowel movement in 3 days with lower abdominal pain HPI: The patient is a 84-year-old male who comes into the emergency department because he feels as though he is constipated and has had no bowel movements with MiraLax or the use of other cathartics. He states that he has not had a bowel movement in 3 days. Prior to the 3 days ago he has had normal bowel movements without blood or diarrhea. He denies a history of diverticulitis irritable bowel syndrome Crohn's disease or ulcerative colitis. Recently he had surgery for occlusion of his iliac arteries in his legs. He had bypass and stenting of his iliac arteries 2 weeks ago at [facility] in [place]. He denies any fall or injury. He has had no back pain nausea vomiting. He denies any leg pain. His left leg and ankle has been swollen since sweats vascular surgery. He has had no kidney failure. He has waves of abdominal pain arm that come and go and is 7/10 in intensity and is a dull achy crampy discomfort. He denies a history of pancreatitis but admits to a history of high diabetes mellitus and hypertension and previous myocardial infarction. He denies a stroke or congestive heart failure. He states that he is a former cigarette smoker occasionally drinks alcohol but does not use any marijuana. Related Data Home Medications Medication Instructions Recorded Confirmed clopidogrel [Plavix] 75 mg PO QDAY #0 02/12/16 09/16/19 isosorbide mononitrate 60 mg PO DAILY #0 02/12/16 09/16/19 atenolol 25 mg tablet 25 mg PO DAILY 11/02/17 09/16/19 cholecalciferol (vitamin D3) 25 1,000 unit PO DAILY 11/02/17 09/16/19 mcg (1,000 unit) capsule glipizide 5 mg tablet 5 mg PO BID 11/02/17 09/16/19 valsartan 80 mg tablet 80 mg PO DAILY 11/02/17 09/16/19 aspirin [Adult Aspirin Regimen] 81 mg PO DAILY 09/16/19 09/16/19 atorvastatin 20 mg PO DAILY 06/15/20 06/15/20 cilostazol 50 mg PO BID 09/16/19 09/16/19 mirtazapine 7.5 mg PO BEDTIME 09/16/19 09/16/19 oscmqvwc-pot-BN-lycopen-lutein 1 tab PO DAILY 09/16/19 09/16/19 [Centrum Silver Men] pantoprazole 40 mg PO DAILY 09/16/19 09/16/19 Allergies Allergy/AdvReac Type Severity Reaction Status Date / Time No Known Drug Allergies Allergy Verified 09/16/19 09:29 Review of Systems Review of Systems Narrative: REVIEW OF SYSTEMS: CONSTITUTIONAL: He denies any fever chills or sweats. NEUROLOGICAL: He denies any headache numbness tingling paresthesias anesthesia is paresis or paralysis. EENT: He denies any nasal congestion sinus drainage or difficulty in swallowi ng. CARDIO-PULMONARY: He denies any chest pain cough shortness of breath palpitations. GASTROINTESTINAL: He denies any abdominal pain vomiting diarrhea melena hematochezia but has had nausea. GENITAL URINARY: He denies any urinary symptoms MUSCULOSKELETAL/ RHEUMATOLOGICAL: He denies any back pain more than usual. DERMATOLOGICAL: He has had no skin rash or bruising. Patient History Medical History Arthritis (Acute) Coronary artery disease (Acute) Diabetes type 2, controlled (Acute) Heart disease (Acute) Surgical History History of cataract removal with insertion of prosthetic lens History of cataract removal with insertion of prosthetic lens Status post cholecystectomy Status post partial mastectomy Family History Brother Cancer Grandmother Diabetes mellitus Mother Heart disease Father Heart disease Social History marital status: household members: spouse Smoking Status: Former smoker Tobacco: How many years used: 20 Smokeless tobacco user: other (Cigarettes) quit status: quit date established (Stopped at age 39.) additional social history: Caffiene: 1 1/2 cups of Coffee 1-2 cans of soda a day Smoking Status: Former smoker alcohol intake frequency: other Substance Use Type: does not use Exam Narrative Exam Narrative: PHYSICAL EXAM: CONSTITUTIONAL: Awake, Alert, Oriented, Coherent, Cooperative in NAD. Does not appear toxic or ill. HEAD: AT/NC EENT: PERRL, FROM of eyes, no discharge, no conjunctivitis. NOSE:No epistaxis or nasal drainage MOUTH:Oral mucosa is moist and pink, NECK: Supple, no obvious JVD, Trachea is midline without stridor, no palpable LN. SPINE: Palpationof the cervical, Thoracic, Lumbar or Sacral spine reveals no gross deformity or tenderness. No CVA tenderness. THORAX: No deformity, retractions, chest wall tenderness. LUNGS: Clear, symmetrical breath sounds without respiratory distress. HEART: Regular rhythm and rate with normal heart tones no murmur ABDOMEN: Patient's abdomen is soft he is tender in the left lower quadrant and right lower quadrant mild guarding but without rebound or rigidity. Bowel sounds were present LYMPHATIC: no palpable lymph nodes or spleen. EXTREMITIES: No edema, deformity, tenderness good capillary refill SKIN: No rash, bruising, petechiae or purpura. NEURO: Awake, alert, oriented, conversive, cranial nerves II-XII are symmetrical , moves all 4 extremities and is ambulatory. Initial Vital Signs Initial Vital Signs: Vital Signs Temperature 97.6 F 09/16/19 08:54 Pulse Rate 77 09/16/19 08:54 Respiratory Rate 19 09/16/19 08:54 Blood Pressure 196/87 H 09/16/19 08:54 Pulse Oximetry 96 09/16/19 08:54 Course Course Course Narrative: 1134: The patient's CT of the abdomen reveals: 1. Segmental wall thickening in the sigmoid colon with moderate proximal dis tention of the colon. The findings are suspicious for an intramural mass, such as from an adenocarcinoma, with associated distal colonic obstruction. Recommend correlation with colonoscopy. 2. Findings are consistent with chronic pancreatitis redemonstrated with interval marked distention of the main pancreatic duct while due to shifting stone in the pancreatic head. No CT evidence of acute pancreatitis. 3. Bilateral iliac stents with celiac artery stent demonstrated. 4. New small right lower lobe pulmonary nodules measuring up to 5 mm. Recommend a follow-up chest CT when clinically feasible. I will call and discuss the patient with the surgeon on-call : Call into Dr. Bass. Orders Ordered: Acetaminophen (Tylenol) 650 mg PO Q6HR PRN PRN Reason: Fever/Mild Pain (1-3) Atenolol (Tenormin) 25 mg PO DAILY [facility] Last Admin: 09/16/19 17:19 Dose: Not Given Documented by: LANNY Atorvastatin Calcium (Lipitor) 20 mg PO BEDTIME [facility] Cilostazol (Pletal) 50 mg PO BID [facility] Enoxaparin Sodium (Lovenox) 30 mg SUBCUT DAILY [facility] Last Admin: 09/16/19 16:35 Dose: 30 mg Documented by: LANNY Sodium Chloride (Normal Saline 0.45%) 1,000 mls @ 50 mls/hr IV CONT [facility] Last Admin: 09/16/19 16:31 Dose: 50 mls/hr Documented by: LANNY Isosorbide Mononitrate (Imdur) 60 mg PO QACBREAK [facility] Metoclopramide HCl (Reglan) 5 mg IV Q6HR PRN PRN Reason: Nausea And Vomiting Last Admin: 09/16/19 16:35 Dose: 5 mg Documented by: LANNY Mirtazapine (Remeron) 7.5 mg PO BEDTIME [facility] Naloxone HCl (Narcan) 0.2 mg IV Q2MIN PRN PRN Reason: Opiate Reversal Ondansetron HCl (Zofran) 4 mg IV Q8HR PRN PRN Reason: Nausea And Vomiting Pantoprazole Sodium (Protonix) 40 mg PO 0600 [facility] Valsartan (Diovan) 80 mg PO DAILY [facility] Last Admin: 09/16/19 17:19 Dose: Not Given Documented by: LANNY Discontinued Medications Aspirin (Aspirin Ec) 81 mg PO DAILY [facility] Hydromorphone HCl (Dilaudid) 1 mg IV NOW ONE Stop: 09/16/19 12:30 Last Admin: 09/16/19 12:36 Dose: 1 mg Documented by: DORY Sodium Chloride (Normal Saline 0.9%) 1,000 mls @ 1,000 mls/hr IV BOLUS ONE Stop: 09/16/19 12:00 Last Infusion: 09/16/19 12:31 Dose: 0 mls/hr Documented by: Admin: 09/16/19 11:07 Dose: 1,000 mls/hr Documented by: DORY Morphine Sulfate (Morphine) 2 mg IV NOW ONE Stop: 09/16/19 09:27 Last Admin: 09/16/19 09:35 Dose: 2 mg Documented by: DORY Ondansetron HCl (Zofran) 4 mg IV NOW ONE Stop: 09/16/19 09:27 Last Admin: 09/16/19 09:35 Dose: 4 mg Documented by: DORY Ondansetron HCl (Zofran) 4 mg IV NOW ONE Stop: 09/16/19 11:56 Last Admin: 09/16/19 12:11 Dose: 4 mg Documented by: DORY Ondansetron HCl (Zofran) 4 mg IV NOW ONE Stop: 09/16/19 12:30 Last Admin: 09/16/19 12:44 Dose: 4 mg Documented by: DORY Sodium Biphosphate/Sodium Phosphate (Fleet Enema) 1 each OK NOW ONE Stop: 09/16/19 17:19 Vital Signs Vital signs: Vital Signs - 8 hr 09/16/19 12:28 Pulse Rate 72 Respiratory Rate 14 Blood Pressure [Right Arm] 177/108 H Pulse Oximetry 94 MDM - Abdominal Pain Lab Data Result diagrams: 09/16/19 08:59 09/16/19 08:59 Labs: Lab Results 09/16/19 09/16/19 09/16/19 Range/Units 08:59 08:59 08:59 WBC 7.0 (4.5-11.0) X10^3/uL RBC 3.79 L (4.5-5.9) X10^6/uL Hgb 12.6 L (13.5-17.5) g/dL Hct 36.9 L (41-53) % MCV 97.5 (80-100) fL MCH 33.3 (26-34) PG MCHC 34.2 (30-36) % RDW 14.3 (11.6-14.8) % Plt Count 208 (150-400) X10^3/uL Neut % (Auto) 70.5 (50-75) % Lymph % (Auto) 18.5 L (25-40) % [place] % (Auto) 8.6 (3-14) % Eos % (Auto) 2.1 (2-4) % Baso % (Auto) 0.3 (0-2) % Neut # (Auto) 4900 (3633-0649) /uL Lymph # (Auto) 1300 (9699-3730) /uL [place] # (Auto) 600 (0-900) /uL Eos # (Auto) 100 (0-450) /uL Baso # (Auto) 0 (0-100) /uL PT 12.8 H (10.1-12.7) SECONDS INR 1.1 (0.9-1.3) APTT 37 H (26.4-36.2) SECONDS Sodium 138 (137-145) mmol/L Potassium 4.3 (3.4-5.1) mmol/L Chloride 105 (98-107) mmol/L Carbon Dioxide 23 (22-32) mmol/L BUN 30 H (9-20) mg/dL Creatinine 1.58 H (0.66-1.25) mg/dL Estimated GFR 42.0 L (>60) mL/min BUN/Creatinine Ratio 19.0 (6-22) Glucose 158 H (80-110) mg/dL Calcium 9.7 (8.4-10.2) mg/dL Total Bilirubin 0.7 (0.2-1.3) mg/dL AST 27 (17-59) IU/L ALT 22 (<50) IU/L Alkaline Phosphatase 79 (38-126) U/L Total Protein 7.6 (6.3-8.2) g/dL Albumin 4.2 (3.5-5.0) g/dL Globulin 3.4 (1.7-4.1) g/dL Albumin/Globulin Ratio 1.2 (1.0-2.8) Lipase 16 L (23-300) U/L COVID-19 PCR 09/16/19 09/16/19 Range/Units 12:22 12:22 WBC (4.5-11.0) X10^3/uL RBC (4.5-5.9) X10^6/uL Hgb (13.5-17.5) g/dL Hct (41-53) % MCV (80-100) fL MCH (26-34) PG MCHC (30-36) % RDW (11.6-14.8) % Plt Count (150-400) X10^3/uL Neut % (Auto) (50-75) % Lymph % (Auto) (25-40) % [place] % (Auto) (3-14) % Eos % (Auto) (2-4) % Baso % (Auto) (0-2) % Neut # (Auto) (4369-2110) /uL Lymph # (Auto) (0042-5815) /uL [place] # (Auto) (0-900) /uL Eos # (Auto) (0-450) /uL Baso # (Auto) (0-100) /uL PT (10.1-12.7) SECONDS INR (0.9-1.3) APTT (26.4-36.2) SECONDS Sodium (137-145) mmol/L Potassium (3.4-5.1) mmol/L Chloride (98-107) mmol/L Carbon Dioxide (22-32) mmol/L BUN (9-20) mg/dL Creatinine (0.66-1.25) mg/dL Estimated GFR (>60) mL/min BUN/Creatinine Ratio (6-22) Glucose (80-110) mg/dL Calcium (8.4-10.2) mg/dL Total Bilirubin (0.2-1.3) mg/dL AST (17-59) IU/L ALT (<50) IU/L Alkaline Phosphatase (38-126) U/L Total Protein (6.3-8.2) g/dL Albumin (3.5-5.0) g/dL Globulin (1.7-4.1) g/dL Albumin/Globulin Ratio (1.0-2.8) Lipase (23-300) U/L COVID-19 PCR Cancelled Negative Point of care testing: Urine Dip Bedside Urine Glucose Negative Bedside Urine Bilirubin - Negative Bedside Urine Ketone - Negative Urine Specific [place] 1.020 Bedside Urine Occult Blood - Negative Bedside Urine pH 5.5 Bedside Urine Protein + 30 Bedside Urine Urobilinogen - Negative Bedside Urine Nitrite - Negative Bedside Urine Leukocytes - Negative Esterase Discharge Plan Departure Patient Disposition: Admitted as Observation Clinical Impression: Colonic obstruction Constipation Qualifiers: Constipation type: unspecified constipation type Qualified Code(s): K59.00 - Constipation, unspecified Discharge Date/Time: 09/16/19 13:16 Referrals: Luis Carlos Stewart MD [Primary Care Provider] - Admit Date/Time: 09/16/19 12:31 Admit Provider: Caterina Winters
[2019-09-16 09:26] LABS: Add Manual Diff / Slide Review NO; Basophils Absolute Auto 0 /uL (0-100); Basophils Percent Auto 0.3 % (0-2); Eosinophils Absolute Auto 100 /uL (0-450); Eosinophils Percent Auto 2.1 % (2-4); Hematocrit 36.9 % (41-53); Hemoglobin 12.6 g/dL (13.5-17.5); Lymphocytes Absolute Auto 1300 /uL (1100-4500); Lymphocytes Percent Auto 18.5 % (25-40); Mean Corpuscular HGB Conc 34.2 % (30-36); Mean Corpuscular Hemoglobin 33.3 PG (26-34); Mean Corpuscular Volume 97.5 fL (80-100); Monocytes Absolute Auto 600 /uL (0-900); Monocytes Percent Auto 8.6 % (3-14); Neutrophils Absolute Auto 4900 /uL (1500-7000); Neutrophils Percent Auto 70.5 % (50-75); Platelet Count 208 X10^3/uL (150-400); Red Blood Cell Count 3.79 X10^6/uL (4.5-5.9); Red Cell Distribution Width 14.3 % (11.6-14.8)
--- NOTE | 2019-09-16 09:26 | DI.CT.S_ITS ---
PROCEDURE: CT ABDOMEN PELVIS W CON INDICATIONS: multiple abdominal surgeries,no bm x3 days, pain TECHNIQUE: After the administration of intravenous contrast, 5 mm thick sections acquired from the diaphragm to the symphysis. 5 mm coronal and sagittal reformats were acquired. For radiation dose reduction, the following was used: automated exposure control, adjustment of mA and/or kV according to patient size. COMPARISON: Outside Facility, RG, CT THORAX/ABD/PELVIS W/WO CONTRAST, 03/29/2016, 8:00. FINDINGS: Image quality: Excellent. ABDOMEN: Lung bases: There are 2 small pulmonary nodules within the right lower lobe measuring up to 4 mm and 5 mm. Findings are new from the prior study. Heart size is normal. There is a small hiatal hernia. Solid organs: Evaluation of the liver demonstrates no focal hepatic lesions. The gallbladder is surgically absent. Biliary system is non-dilated. Multiple pancreatic calcifications are redemonstrated consistent with sequela of chronic pancreatitis. There is new marked distention of the main pancreatic duct measuring up to 1.2 cm. There is a calcification in the pancreatic head measuring up to 1.3 cm which appears located within the pancreatic duct suggestive of obstruction. No peripancreatic fat stranding or fluid collections. The spleen is normal in size. No adrenal nodules. Kidneys demonstrate no hydronephrosis. Peritoneum and bowel: Small bowel loops demonstrate normal wall thickness and caliber. There is moderate gaseous distention of the colon extending to the mid sigmoid colon where there is a short segment approximately 4 cm in length of mild concentric wall thickening. A few colonic diverticula are demonstrated without acute diverticulitis. No free fluid or air. Nodes and vessels: No retroperitoneal or mesenteric adenopathy by size criteria. There are bilateral long segment stents within the common iliac arteries extending to the infrarenal aorta. There is also vascular stent within the celiac artery. The [place] aorta is normal in caliber measuring up to 2.8 cm. Miscellaneous: No ventral hernias. PELVIS: Genitourinary: Bladder wall thickness is normal. There is heterogeneous enlargement of the pancreas with internal calcifications. Miscellaneous: There is scarring in the inguinal regions bilaterally associated with prior endovascular access. There are small heterogeneous collections o presenting the swelling hematomas or seromas. No inguinal hernias or adenopathy. Bones: No suspicious bony lesions. No vertebral body compression fractures. IMPRESSION: 1. Segmental wall thickening in the sigmoid colon with moderate proximal distention of the colon. The findings are suspicious for an intramural mass, such as from adenocarcinoma, with associated distal colonic obstruction. Recommend correlation with colonoscopy. 2. Findings consistent with chronic pancreatitis redemonstrated with interval marked distention of the main pancreatic duct likely due to shifting stone in the pancreatic head. No CT evidence of acute pancreatitis. 3. Bilateral iliac stents and celiac artery stent demonstrated. 4. New small right lower lobe pulmonary nodules measuring up to 5 mm. Recommend a followup chest CT when clinically feasible. Dictated by: Naveen Olivo M.D. on 09/16/2019 at 10:39 Approved by: Naveen Olivo M.D. on 09/16/2019 at 11:21
[2019-09-16 09:27] LABS: PTT Partial Thromboplastin Tim 37 SECONDS (26.4-36.2)
[2019-09-16 09:30] LABS: Alanine Aminotransferase 22 IU/L (<50); Albumin 4.2 g/dL (3.5-5.0); Albumin Globulin Ratio 1.2 (1.0-2.8); Alkaline Phosphatase 79 U/L (38-126); Aspartate Aminotransferase 27 IU/L (17-59); Bilirubin Total 0.7 mg/dL (0.2-1.3); Blood Urea Nitrogen 30 mg/dL (9-20); Calcium 9.7 mg/dL (8.4-10.2); Carbon Dioxide 23 mmol/L (22-32); Chloride 105 mmol/L (98-107); Globulin 3.4 g/dL (1.7-4.1); Glucose 158 mg/dL (80-110); HEMOLYSIS < 15 (0-50); Lipase 16 U/L (23-300); Potassium 4.3 mmol/L (3.4-5.1); Sodium 138 mmol/L (137-145); Total Protein 7.6 g/dL (6.3-8.2)
[2019-09-16] MEDS: ONDANSETRON 4 MG/2 ML INJ IV ×3 (09:35→12:44)
[2019-09-16] MEDS: MORPHINE 2 MG/ML INJ IV (09:35)
[2019-09-16] MEDS: SODIUM CHLORIDE 0.9% 1,000 ML 1000 ML IV (11:07)
[2019-09-16] MEDS: HYDROMORPHONE 1 MG INJ IV (12:36)
[2019-09-16 13:59] LABS: COVID19 -Nasal RAPID Negative (Negative)
--- NOTE | 2019-09-16 14:17 | PM.HP.1 ---
History of Present Illness History of Present Illness Chief complaint: stomach pain Narrative: The patient is an 84-year-old male with a history of significant vascular disease status post right fem pop right iliac embolectomy, bilateral common femoral endarterectomy, fem-fem bypass, and bilateral iliac stent placement in April of 2019. He also has a history of esophagitis, skin cancer, 3 myocardial infarctions, status post CABG, who was in his usual state of health until about 3 weeks ago. Patient had episode of constipation with significant abdominal pain. He ultimately was able to have a bowel movement with improvement of his symptoms. Three days ago he had no BM. The patient again developed significant pain. He was anticipating this would resolve with bowel movement however he continued to be constipated and had no BM. The patient presented to the emergency room for evaluation. CT scan of the abdomen and pelvis was remarkable for what appears to be a colonic obstruction. There is a question of adenocarcinoma verses stricture versus other. The patient is admitted to the hospital at this time for definitive treatment of possible colonic obstruction. Patient has had no fever chills, no cough, no shortness of breath, he does report some fatigue. He has had no chest pain. He does have hiccups, the started this morning. He denies any hematemesis melena or bright red blood per rectum. Patient History Medical History (Updated 09/16/19 @ 11:55 by Tyler Joseph MD) Arthritis (Acute) Coronary artery disease (Acute) Diabetes type 2, controlled (Acute) Heart disease (Acute) Surgical History History of cataract removal with insertion of prosthetic lens History of cataract removal with insertion of prosthetic lens Status post cholecystectomy Status post partial mastectomy Family & Social History Family History Brother Cancer Grandmother Diabetes mellitus Mother Heart disease Father Heart disease Social History: household members spouse Safety & Behavioral: Feels Safe in Current Yes Environment Tobacco & Substance use: Smoking Status Former smoker alcohol intake frequency other Substance Use Type does not use Meds Home Medications and Allergies Home Medications Medication Instructions Recorded Confirmed Type clopidogrel [Plavix] 75 mg PO QDAY #0 02/12/16 09/16/19 History isosorbide mononitrate 60 mg PO DAILY #0 02/12/16 09/16/19 History atenolol 25 mg tablet 25 mg PO DAILY 11/02/17 09/16/19 History cholecalciferol (vitamin D3) 25 1,000 unit PO DAILY 11/02/17 09/16/19 History mcg (1,000 unit) capsule glipizide 5 mg tablet 5 mg PO BID 11/02/17 09/16/19 History valsartan 80 mg tablet 80 mg PO DAILY 11/02/17 09/16/19 History aspirin [Adult Aspirin Regimen] 81 mg PO DAILY 09/16/19 09/16/19 History atorvastatin 20 mg PO DAILY 09/16/19 09/16/19 History cilostazol 50 mg PO BID 09/16/19 09/16/19 History mirtazapine 7.5 mg PO BEDTIME 09/16/19 09/16/19 History immvexpy-pot-OF-lycopen-lutein 1 tab PO DAILY 09/16/19 09/16/19 History [Centrum Silver Men] pantoprazole 40 mg PO DAILY 09/16/19 09/16/19 History Allergies Allergy/AdvReac Type Severity Reaction Status Date / Time No Known Drug Allergies Allergy Verified 09/16/19 09:29 Review of Systems Review of Systems ROS: Yes All systems reviewed with the patient and are negative except as otherwise documented Exam Vital Signs (past 8 hours): - 09/16/19 08:54 09/16/19 10:00 09/16/19 11:00 Temperature 97.6 F Pulse Rate 77 68 68 Respiratory Rate 19 15 12 Blood Pressure 196/87 H Blood Pressure [Right Arm] 158/74 H 151/66 H Pulse Oximetry 96 94 97 09/16/19 12:28 09/16/19 13:00 Temperature Pulse Rate 72 72 Respiratory Rate 14 14 Blood Pressure Blood Pressure [Right Arm] 177/108 H 141/60 H Pulse Oximetry 94 91 Oxygen Delivery Method Room Air Narrative Exam Narrative: Elderly male in no obvious distress HEENT: Normocephalic atraumatic, extraocular muscles are intact oropharynx is clear, with moist mucous membranes neck is supple, no thyromegaly or adenopathy noted Lungs: Clear to auscultation Cardiac exam: Regular rate and rhythm normal S1-S2 with a 2/6 systolic ejection Abdomen: Soft, nontender, nondistended well-healed midline surgical incision, no rebound tenderness, no board-like rigidity, no palpable mass Extremities: No edema Skin: Multiple areas of some sun damage, skin is fairly dry, Neuro exam cranial nerves 2-12 are intact, strength is symmetric and equal, sensation, decreased sensation in both lower extremities, reflexes are equal, gait is not assessed Psychiatric the patient is awake alert and oriented, he answers questions appropriately, no evidence of delusions or hallucinations. Objective Labs Result Diagrams: 09/16/19 08:59 09/16/19 08:59 Labs: Laboratory Results - last 24 hr 09/16/19 09/16/19 09/16/19 08:59 08:59 08:59 WBC 7.0 RBC 3.79 L Hgb 12.6 L Hct 36.9 L MCV 97.5 MCH 33.3 MCHC 34.2 RDW 14.3 Plt Count 208 Neut % (Auto) 70.5 Lymph % (Auto) 18.5 L [place] % (Auto) 8.6 Eos % (Auto) 2.1 Baso % (Auto) 0.3 Neut # (Auto) 4900 Lymph # (Auto) 1300 [place] # (Auto) 600 Eos # (Auto) 100 Baso # (Auto) 0 PT 12.8 H INR 1.1 APTT 37 H Sodium 138 Potassium 4.3 Chloride 105 Carbon Dioxide 23 BUN 30 H Creatinine 1.58 H Estimated GFR 42.0 L BUN/Creatinine Ratio 19.0 Glucose 158 H Calcium 9.7 Total Bilirubin 0.7 AST 27 ALT 22 Alkaline Phosphatase 79 Total Protein 7.6 Albumin 4.2 Globulin 3.4 Albumin/Globulin Ratio 1.2 Lipase 16 L COVID-19 PCR 09/16/19 09/16/19 12:22 12:22 WBC RBC Hgb Hct MCV MCH MCHC RDW Plt Count Neut % (Auto) Lymph % (Auto) [place] % (Auto) Eos % (Auto) Baso % (Auto) Neut # (Auto) Lymph # (Auto) [place] # (Auto) Eos # (Auto) Baso # (Auto) PT INR APTT Sodium Potassium Chloride Carbon Dioxide BUN Creatinine Estimated GFR BUN/Creatinine Ratio Glucose Calcium Total Bilirubin AST ALT Alkaline Phosphatase Total Protein Albumin Globulin Albumin/Globulin Ratio Lipase COVID-19 PCR Cancelled Negative Assessment & Plan Assessment and plan (1) PVD (peripheral vascular disease): Status: Chronic Assessment & Plan narrative: Impression 1. 84-year-old male admitted to the hospital after 3 days of constipation and now abdominal pain -CT scan of the abdomen and pelvis revealed -Segmental wall thickening in the sigmoid colon with moderate proximal distention of the colon. The findings are suspicious for an intramural mass, such as from adenocarcinoma, with associated distal colonic obstruction. Recommend correlation with colonoscopy. -surgery consultation -colon prep for colonoscopy tomorrow 2. History of peripheral vascular disease -patient underwent left fem-pop right iliac embolectomy, bilateral common femoral artery endarterectomy, fem-fem bypass, with bilateral stent -patient required flap to the left groin for a nonhealing wound in April as well -patient currently on Plavix and aspirin, Plavix will be held for colonoscopy 3. Coronary artery disease -history of myocardial infarction x3 -history of coronary artery bypass -will continue usual medication and hold Plavix in anticipation for surgical treatment -if surgery is not indicated will resume his Plavix 4. Hypertension -continue antihypertensives to include atenolol and valsartan 5. Hyperlipidemia -continue statin 6. Type 2 diabetes, complicated by diabetic polyneuropathy -will hold glipizide in the hospital -place him on sliding scale insulin for now -resume glipizide as an outpatient 7. GERD -CONTINUE PROTONIX DVT prophylaxis, will start Lovenox Diet, clear liquid diet then NPO after midnight Patient indicates he is DNR DNI and will note that his record accordingly
[2019-09-16] MEDS: SODIUM CHLORIDE 0.45% 1,000 ML 50 ML IV (16:31)
[2019-09-16] MEDS: METOCLOPRAMIDE 10 MG/2 ML INJ 5 MG IV (16:35)
[2019-09-16] MEDS: ENOXAPARIN 30 MG/0.3 ML SYRINGE SUBCUT (16:35)
--- NOTE | 2019-09-16 17:04 | PM.CN ---
History of Present Illness Consult details Date Patient Seen: 09/16/19 Time Patient Seen: 17:04 Chief complaint: stomach pain Narrative: Tyler's a 84-year-old male who is seen in evaluation for a partial colonic obstruction. He developed a lower abdominal pain over the last several days feels bloated slightly nauseous and has had no bowel movement. He is passing flatus he has had no emesis. On admission CT demonstrates dilated colon and cecum measuring about 8 cm and a point of stenosis in the sigmoid colon. He had previous colonoscopy 15 years ago that was reportedly negative. No personal or family history of intestinal malignancy. He has significant vascular disease having prior CABG numerous cardiac stents, a celiac stent for mesenteric ischemia as well as stenting of his iliac vessels. The celiac stent was performed at an outside institution for years ago and since then he has had no symptoms of mesenteric ischemia. He is a former smoker takes aspirin and Plavix. Meds Home Medications and Allergies Home Medications Medication Instructions Recorded Confirmed Type clopidogrel [Plavix] 75 mg PO QDAY #0 02/12/16 09/16/19 History isosorbide mononitrate 60 mg PO DAILY #0 02/12/16 09/16/19 History atenolol 25 mg tablet 25 mg PO DAILY 11/02/17 09/16/19 History cholecalciferol (vitamin D3) 25 1,000 unit PO DAILY 11/02/17 09/16/19 History mcg (1,000 unit) capsule glipizide 5 mg tablet 5 mg PO BID 11/02/17 09/16/19 History valsartan 80 mg tablet 80 mg PO DAILY 11/02/17 09/16/19 History aspirin [Adult Aspirin Regimen] 81 mg PO DAILY 09/16/19 09/16/19 History atorvastatin 20 mg PO DAILY 09/16/19 09/16/19 History cilostazol 50 mg PO BID 09/16/19 09/16/19 History mirtazapine 7.5 mg PO BEDTIME 09/16/19 09/16/19 History dxctnuvl-caa-TT-lycopen-lutein 1 tab PO DAILY 09/16/19 09/16/19 History [Centrum Silver Men] pantoprazole 40 mg PO DAILY 09/16/19 09/16/19 History Allergies Allergy/AdvReac Type Severity Reaction Status Date / Time No Known Drug Allergies Allergy Verified 09/16/19 09:29 Review of Systems Review of Systems Narrative: A 10 point review of systems is negative except as noted in the HPI Exam Vital Signs (past 8 hours): - 09/16/19 10:00 09/16/19 11:00 09/16/19 12:28 Temperature Pulse Rate 68 68 72 Respiratory Rate 15 12 14 Blood Pressure Blood Pressure [Right Arm] 158/74 H 151/66 H 177/108 H Pulse Oximetry 94 97 94 09/16/19 13:00 09/16/19 13:30 09/16/19 16:10 Temperature 97.3 F L 97.9 F Pulse Rate 72 76 71 Respiratory Rate 14 18 15 Blood Pressure 194/86 H 131/77 Blood Pressure [Right Arm] 141/60 H Pulse Oximetry 91 96 96 Oxygen Delivery Method Nasal Cannula Oxygen Flow Rate 2 Narrative Exam Narrative: General-no acute distress, elderly man HEENT-moist mucous membranes, no scleral icterus Neck-supple, no lymphadenopathy Chest- non labored respirations, clear to auscultation bilaterally Cardiac-regular rate no peripheral edema Abdomen mildly distended, tender left lower quadrant no peritonitis Extremities-warm Neurological-alert and oriented, no focal deficits Objective Labs Result Diagrams: 09/16/19 08:59 09/16/19 08:59 Labs: Laboratory Results - last 24 hr 09/16/19 09/16/19 09/16/19 08:59 08:59 08:59 WBC 7.0 RBC 3.79 L Hgb 12.6 L Hct 36.9 L MCV 97.5 MCH 33.3 MCHC 34.2 RDW 14.3 Plt Count 208 Neut % (Auto) 70.5 Lymph % (Auto) 18.5 L [place] % (Auto) 8.6 Eos % (Auto) 2.1 Baso % (Auto) 0.3 Neut # (Auto) 4900 Lymph # (Auto) 1300 [place] # (Auto) 600 Eos # (Auto) 100 Baso # (Auto) 0 PT 12.8 H INR 1.1 APTT 37 H Sodium 138 Potassium 4.3 Chloride 105 Carbon Dioxide 23 BUN 30 H Creatinine 1.58 H Estimated GFR 42.0 L BUN/Creatinine Ratio 19.0 Glucose 158 H Calcium 9.7 Total Bilirubin 0.7 AST 27 ALT 22 Alkaline Phosphatase 79 Total Protein 7.6 Albumin 4.2 Globulin 3.4 Albumin/Globulin Ratio 1.2 Lipase 16 L COVID-19 PCR 09/16/19 09/16/19 12:22 12:22 WBC RBC Hgb Hct MCV MCH MCHC RDW Plt Count Neut % (Auto) Lymph % (Auto) [place] % (Auto) Eos % (Auto) Baso % (Auto) Neut # (Auto) Lymph # (Auto) [place] # (Auto) Eos # (Auto) Baso # (Auto) PT INR APTT Sodium Potassium Chloride Carbon Dioxide BUN Creatinine Estimated GFR BUN/Creatinine Ratio Glucose Calcium Total Bilirubin AST ALT Alkaline Phosphatase Total Protein Albumin Globulin Albumin/Globulin Ratio Lipase COVID-19 PCR Cancelled Negative Assessment & Plan Assessment and plan (1) Colonic obstruction: Status: Acute Assessment & Plan narrative: Tyler is a 84-year-old male with extensive peripheral and mesenteric vascular disease who presents with an acute partial colonic obstruction. He is passing flatus and without emesis has no peritonitis or leuocytosis. I reviewed his CT abdomen pelvis which demonstrates a dilated cecum and a stenosis in the sigmoid colon without free air or free fluid. I don not think that he has acute mesentic ischemia. I had a long discussion with the patient and told him that the etiology of his partial colonic obstruction is not clear at this time. I suspect that it is either colon cancer or stricture secondary to ischemia given his significant vascular disease. I told him that I recommended we proceed with a sigmoid colonoscopy for diagnostic purpose, I do not think that he will tolerate a oral bowel prep but he can be prepped via the rectum. Following the endoscopy he will likely need a sigmoid resection the details of which will be dependent on the pathology. -NPO after midnight -fleets enema -hold Plavix and aspirin
[2019-09-16] MEDS: FLEETS ENEMA 1 EACH PR (19:00)
[2019-09-16] MEDS: MIRTAZAPINE 7.5 MG TABLET PO (21:40)
[2019-09-16] MEDS: cilostazoL 50 MG TABLET PO (21:41)
[2019-09-16] MEDS: ATORVASTATIN 20 MG TABLET PO (21:42)
--- NOTE | 2019-09-16 22:47 | PC.NURSE ---
Evening shift: Report received, care assumed at 1530. Pt. A&Ox4. VSS. C/o mild abdominal pain, constipation, nausea. No bowel tones appreciated. Took in small amount of clear liquids. Fleet's enema administered. Resulted in moderate, loose. liquid brown stool. Bowel tones heard afterwards. Decreased oxygen flow from 2LNC to 1LNC, then RA. Monitoring pulse ox, 95%+. Ambulated twice around [facility]. NPO past midnight for colonoscopy in am.
[2019-09-17] VITALS (13 sets, daily range): BP systolic 113–161; BP diastolic 52–80; PULSE 62–70; RESP 12–18; TEMP 36.2–36.8; O2SAT 93–97; BMI 33.4
--- NOTE | 2019-09-17 | PATH_ITS ---
[facility] Accession Number: [id number] . 01 Material submitted: . sigmoid colon - SIGMOID STRICTURE BIOPSIES . 01 Clinical history: . STOMACH PAIN . 02 Diagnosis: Sigmoid Colon Stricture, Biopsies: Colonic mucosa with no diagnostic abnormality. Negative for active or microscopic colitis. Negative for granulomata, dysplasia or malignancy. [facility] 09/18/2019 1206 Local . 02 Electronically signed: . Jeff Soto MD, PhD, Pathologist NPI- [id number] . 01 Gross description: . SIGMOID STRICTURE BIOPSIES: Received in formalin are 4 fragment(s) of barron, soft tissue measuring 0.1 x 0.1 x 0.1 cm to 0.3 x 0.2 x 0.2 cm submitted entirely in 1 cassette(s) /BLANCA 09/17/20192052 Local . 02 Pathologist provided ICD-10: R10.9 . 02 CPT . 439315 Performed at: 01 [facility] [address], [place], [place] [id number] MD Naveen Kiser MD Phone: [phone] Performed at: 02 [facility] [address] [place], [place] [id number] MD Kaylynn Nobles MD Phone: [phone]
[2019-09-17] MEDS: ISOSORBIDE MONONITRATE ER 60 MG PO (06:22)
[2019-09-17] MEDS: PANTOPRAZOLE 40 MG TABLET PO (06:22)
[2019-09-17] MEDS: FLEETS ENEMA 1 EACH PR (06:23)
[2019-09-17 07:09] LABS: Add Manual Diff / Slide Review NO; Basophils Absolute Auto 0 /uL (0-100); Basophils Percent Auto 0.5 % (0-2); Eosinophils Absolute Auto 100 /uL (0-450); Hematocrit 34.5 % (41-53); Hemoglobin 12.1 g/dL (13.5-17.5); Lymphocytes Absolute Auto 1700 /uL (1100-4500); Lymphocytes Percent Auto 30.9 % (25-40); Mean Corpuscular Hemoglobin 34.3 PG (26-34); Mean Corpuscular Volume 98.1 fL (80-100); Monocytes Absolute Auto 500 /uL (0-900); Monocytes Percent Auto 8.7 % (3-14); Neutrophils Absolute Auto 3200 /uL (1500-7000); Neutrophils Percent Auto 57.9 % (50-75); Platelet Count 180 X10^3/uL (150-400); Red Blood Cell Count 3.52 X10^6/uL (4.5-5.9); Red Cell Distribution Width 14.3 % (11.6-14.8); White Blood Cell Count 5.5 X10^3/uL (4.5-11.0)
[2019-09-17 07:22] LABS: Alanine Aminotransferase 19 IU/L (<50); Albumin 3.6 g/dL (3.5-5.0); Albumin Globulin Ratio 1.1 (1.0-2.8); Alkaline Phosphatase 73 U/L (38-126); Aspartate Aminotransferase 24 IU/L (17-59); BUN Creatinine Ratio 16.2 (6-22); Bilirubin Total 0.8 mg/dL (0.2-1.3); Blood Urea Nitrogen 23 mg/dL (9-20); Calcium 9.1 mg/dL (8.4-10.2); Carbon Dioxide 24 mmol/L (22-32); Chloride 105 mmol/L (98-107); Estimated Glomerular Filt Rate 47.5 mL/min (>60); Globulin 3.2 g/dL (1.7-4.1); Glucose 113 mg/dL (80-110); HEMOLYSIS < 15 (0-50); Potassium 3.9 mmol/L (3.4-5.1); Sodium 137 mmol/L (137-145); Total Protein 6.8 g/dL (6.3-8.2)
[2019-09-17 07:34] LABS: NT-proBNP (BNP-Adult 18+) 818 pg/mL (<450); Troponin I < 0.012 ng/mL (0.01-0.034)
[2019-09-17 07:53] LABS: Thyroid Stimulating Hormone 4.27 uIU/mL (0.47-4.68)
--- NOTE | 2019-09-17 08:32 | PC.NURSE ---
Addendum entered by Rylie Hart R.N. 09/17/19 13:22: Patient taken by ambulance staff to [facility] in [place], report called to Tiana PAINTER. Patient had glasses on and bilat hearing aids in. took wallet,shoes and clothes. Addendum entered by Rylie Hart R.N. 09/17/19 11:10: Patient back from scope alert, oriented denies pain and nausea. Given clear liquids as ordered. Original Note: Taken down for scope. Denies pain and nausea.
[2019-09-17] MEDS: LACTATED RINGERS 1,000 ML 100 ML IV (08:36)
--- NOTE | 2019-09-17 09:15 | PM.OP.ENDO ---
Operative Date/Time/Diagnoses Date of procedure: 09/17/19 Time of procedure: 09:15 Pre-op diagnosis: Colonic obstruction Post-op diagnosis: same Procedure & Clinicians Study performed: Flexible Sigmoidoscopy Same procedure as scheduled: Yes Indications: 84-year-old male with a history of some peripheral and mesenteric vascular disease who presents with a colonic obstruction in the distal colon. Surgeon: Damon Bass Procedure Notes SCOAP/Timeout: Perform Procedure in detail: Patient placed in left lateral decubitus position. Time out was performed. Procedural sedation was administered with Versed and Fentanyl. A rectal exam demonstrated no external hemorrhoids no internal masses. The colonoscope was placed into the anus and then advanced through the rectum. The quality of prep was quite poor and significant irrigation was needed to advanced scope under visualization. At 25 cm from anal verge a sigmoidal stricture was encountered. The obstruction was a near complete encompassing at least 80% of the colonic lumen. There did not appear to be a mass here I was unable to get past the stricture with the adult scope. The stricture was circumferential. The area was tattooed using a total of 5 mL of dye injected in multiple locations circumferentially just distal to the stricture. Several biopsies were taken with biopsy forceps of the stricture and hemostasis was observed. Scope was then withdrawn. The patient tolerated procedure well. Scope withdrawal time: Not applicable Sedation minutes: 15 Findings: other findings (Sigmoidal stricture) Specimen(s): other (Stricture) Complications: none Impression: Sigmoidal stricture Post-procedure Recommendations: Other recommendation (Will need a sigmoid resection) Disposition: Acute Care
[2019-09-17] MEDS: MIDAZOLAM 5 MG/5 ML VIAL IV (09:17)
[2019-09-17] MEDS: fentaNYL 250 MCG/5 ML INJ IV (09:18)
--- NOTE | 2019-09-17 09:27 | SUR.PHASEI ---
Patient arouses to voice. Denies pain. Able to swallow.
[2019-09-17] MEDS: ENOXAPARIN 30 MG/0.3 ML SYRINGE SUBCUT (10:32)
[2019-09-17] MEDS: atenoloL 25 MG TABLET PO (10:32)
[2019-09-17] MEDS: cilostazoL 50 MG TABLET PO (10:32)
[2019-09-17] MEDS: VALSARTAN 80 MG TABLET PO (10:33)
--- NOTE | 2019-09-17 11:37 | CM.DANOTE ---
DCP: Case received, EMR reviewed. Checked in on patient, and he was originally having procedure. Checked back, and he was sleeping. Discussed at team rounds. Completed DCP assessment based on history and health information in patient's chart. Patient is an 84 year old male who admitted yesterday afternoon to the care of the hospitalist team. PCP: Dr. Stewart. Payer: confirmed: [employer] Medicare. Patient came to the hospital via private vehicle secondary to abdominal discomfort, and potential partial colonic obstruction. Patient had colonoscopy today, and was noted to have sigmoidal stricture. Recommendations are for patient to have sigmoid resection. Patient has extensive cardiac history, and spouse wants any surgical procedures for patient done at a higher acuity hospital. According to notes, patient resides here in [place] with his spouse, Brian. His primary provider is Dr. Stewart at [facility]. Patient is alert and oriented at baseline, according to history. It is unclear at this time if he uses any DME supplies at home. P: DCP to continue to follow and will be available for any needs. Patient could possibly be transferred today to either [facility], or in [place]. Lyn Goss RN/[employer]
--- NOTE | 2019-09-17 13:03 | P.DS_ITS ---
History of Present Illness History of Present Illness Chief complaint: stomach pain Narrative: The patient is an 84-year-old male with a history of significant vascular disease status post right fem pop right iliac embolectomy, bilateral common femoral endarterectomy, fem-fem bypass, and bilateral iliac stent raza cement in April of 2019. He also has a history of esophagitis, skin cancer, 3 myocardial infarctions, status post CABG, who was in his usual state of health until about 3 weeks ago. Patient had episode of constipation with significant abdominal pain. He ultimately was able to have a bowel movement with improvement of his symptoms. Three days ago he had no BM. The patient again developed significant pain. He was anticipating this would resolve with bowel movement however he continued to be constipated and had no BM. The patient presented to the emergency room for evaluation. CT scan of the abdomen and pelvis was remarkable for what appears to be a colonic obstruction. There is a question of adenocarcinoma verses stricture versus other. The patient is admitted to the hospital at this time for definitive treatment of possible colonic obstruction. Patient has had no fever chills, no cough, no shortness of breath, he does report some fatigue. He has had no chest pain. He does have hiccups, the started this morning. He denies any hematemesis melena or bright red blood per rectum. Discharge Providers Provider Date of admission: 09/16/19 12:31 Discharge Date: 09/17/19 Primary care physician: Luis Carlos Stewart MD Consults: 09/16/19 14:56 Consult to Pastoral Services Routine Comment: PER PATIENT REQUEST Discharge provider: Caterina Winters MD Summary Hospital Course Discharge Diagnosis: 1. Colonic obstruction, likely secondary to colonic stricture 2. Peripheral vascular disease 3. History of bilateral femoral endarderectomy, [id number] 4. Hyperlipidemia 5. Coronary disease, history of CABG 6. Hypertension 7. GERD 8. Chronic kidney disease stage 3 Hospital Course: Patient was admitted to the hospital for acute abdominal pain. He had not had a bowel movement in [address] scan of the abdomen showed a colonic stricture versus colonic mass. The patient underwent colonoscopy which confirmed a significant circumferential stricture. Findings at 25 cm from anal verge a sigmoidal stricture was encountered. The obstruction was a near complete encompassing at least 80% of the colonic lumen. There did not appear to be a mass here I was unable to get past the stricture with the adult scope. The stricture was circumferential. Patient will require sigmoidectomy. As he had a significant vascular history, and known coronary disease, patient and his requested to be transferred to [facility] in [place] for definitive surgery. Arrangements were made to transfer the patient. I spoke to Dr. Franco the accepting Hospitalists in addition to Dr. Krause, general surgery who graciously accepted the patient on their service. Patient was transferred to [place] for definitive surgical treatment. Exam Vital Signs (past 8 hours): - 09/17/19 05:29 09/17/19 08:06 09/17/19 08:39 Temperature 97.7 F 97.7 F 97.7 F Pulse Rate 64 62 68 Respiratory Rate 18 18 16 Blood Pressure 161/80 H 139/73 142/73 H Pulse Oximetry 96 96 96 09/17/19 09:20 09/17/19 09:25 09/17/19 09:31 Temperature 97.2 F L Pulse Rate 64 63 66 Respiratory Rate 17 17 13 Blood Pressure 146/65 H 127/58 L 137/65 Pulse Oximetry 97 96 97 09/17/19 09:39 09/17/19 09:47 09/17/19 09:50 Temperature 97.2 F L Pulse Rate 65 64 63 Respiratory Rate 12 12 18 Blood Pressure 138/71 116/60 Pulse Oximetry 97 96 93 09/17/19 10:20 09/17/19 10:50 09/17/19 11:50 Temperature 97.7 F 97.2 F L 97.6 F Pulse Rate 62 62 65 Respiratory Rate 18 18 18 Blood Pressure 113/58 L 124/52 L 127/65 Pulse Oximetry 97 97 94 Oxygen Delivery Method Room Air Oxygen Flow Rate 0 Narrative Exam Narrative: Pleasant elderly gentleman resting comfortably in no obvious distress Lungs: Clear to auscultation Cardiac exam: Regular rate rhythm normal S1-S2 Abdomen: Soft mildly tender, no palpable masses, no board-like rigidity, normoactive bowel tones Extremities: No edema Objective Labs Result Diagrams: 09/17/19 06:47 09/17/19 06:47 Labs: Laboratory Results - last 24 hr 09/16/19 09/16/19 09/17/19 12:22 12:22 06:47 WBC 5.5 RBC 3.52 L Hgb 12.1 L Hct 34.5 L MCV 98.1 MCH 34.3 H MCHC 35.0 RDW 14.3 Plt Count 180 Neut % (Auto) 57.9 Lymph % (Auto) 30.9 [place] % (Auto) 8.7 Eos % (Auto) 2.0 Baso % (Auto) 0.5 Neut # (Auto) 3200 Lymph # (Auto) 1700 [place] # (Auto) 500 Eos # (Auto) 100 Baso # (Auto) 0 Sodium Potassium Chloride Carbon Dioxide BUN Creatinine Estimated GFR BUN/Creatinine Ratio Glucose Calcium Total Bilirubin AST ALT Alkaline Phosphatase Troponin I NT-Pro-B Natriuret Pep Total Protein Albumin Globulin Albumin/Globulin Ratio TSH COVID-19 PCR Cancelled Negative 09/17/19 09/17/19 06:47 06:47 WBC RBC Hgb Hct MCV MCH MCHC RDW Plt Count Neut % (Auto) Lymph % (Auto) [place] % (Auto) Eos % (Auto) Baso % (Auto) Neut # (Auto) Lymph # (Auto) [place] # (Auto) Eos # (Auto) Baso # (Auto) Sodium 137 Potassium 3.9 Chloride 105 Carbon Dioxide 24 BUN 23 H Creatinine 1.42 H Estimated GFR 47.5 L BUN/Creatinine Ratio 16.2 Glucose 113 H Calcium 9.1 Total Bilirubin 0.8 AST 24 ALT 19 Alkaline Phosphatase 73 Troponin I < 0.012 NT-Pro-B Natriuret Pep 818 H Total Protein 6.8 Albumin 3.6 Globulin 3.2 Albumin/Globulin Ratio 1.1 TSH 4.27 COVID-19 PCR Discharge Plan Discharge Plan Patient Disposition: [facility] Under care of provider: Dr. Weber Discharge comment: Transfer for Higher level of care Discharge orders & Medications Follow up/Referrals: Luis Carlos Stewart MD [Primary Care Provider] - Discharge Health Status Multidrug resistant organism: No MDRO Diet/Activity/Treatments Diet: Low-sodium and Low-cholesterol Liquid consistency: Normal/Thin Food texture: Regular Activity: as tolerated Discharge Data Primary Care Provider: Luis Carlos Stewart V Discharges patient from system. Discharge Date/Time: 09/17/19 13:25
== END 2019-09-17 13:25 | disposition short-term general hospital (02) ==
LOC: ED 11:49 → AC 15:02
PROVIDERS: Surgery; Admitting Provider Internal Medicine; Emergency Provider Emergency Medicine; Family Provider Internal Medicine; PCP Internal Medicine; Referring Provider Emergency Medicine; Visit Provider Internal Medicine
PROC: 0DJD8ZZ Inspection of Lower Intestinal Tract, Via Natural or Artificial Opening Endoscopic (ICD-10-PCS; CPT 45378; principal; 2019-09-17 09:00)
DX: K56.600 Partial intestinal obstruction, unspecified as to cause (principal); R10.9 Unspecified abdominal pain; I12.9 Hypertensive chronic kidney disease with stage 1 through stage 4 chronic kidney disease, or unspecified chronic kidney disease; N18.3 Chronic kidney disease, stage 3 (moderate); I73.9 Peripheral vascular disease, unspecified; E78.5 Hyperlipidemia, unspecified; I25.10 Atherosclerotic heart disease of native coronary artery without angina pectoris; K21.9 Gastro-esophageal reflux disease without esophagitis; E11.9 Type 2 diabetes mellitus without complications; Z95.1 Presence of aortocoronary bypass graft; Z79.84 Long term (current) use of oral hypoglycemic drugs; Z87.891 Personal history of nicotine dependence; I25.2 Old myocardial infarction
CPT/HCPCS: 45335; 45331; 36415; 74177; 80053; 81003; 82962; 83690; 83880; 84443; 84484; 85025; 85610; 85730; 87635; 93005; 96361; 96374; 96375; 96376; 99284; 99285; G0378; J1170; J1650; J2250; J2270; J2405; J2765; J3010; J7050; Q9967

== ENCOUNTER 2019-10-14 15:28 | Observation (INO) | payer MEDICARE, SELFPAY ==
[2019-09-16 14:32] VITALS: BMI 33.5
[2019-10-14] VITALS (7 sets, daily range): BP systolic 81–155; BP diastolic 44–60; PULSE 72–89; RESP 16–24; TEMP 36.1–36.7; O2SAT 71–100; BMI 24.2
--- NOTE | 2019-10-14 15:56 | ED_ITS ---
HPI - Nausea/Vomiting/Diarrhea General Chief complaint: Nausea/Vomiting/Diarrhea Stated complaint: ILEOSTOMY PATIENT NOT ABLE TO EAT Time Seen by Provider: 10/14/19 15:51 Source: patient and family Mode of arrival: Wheelchair Limitations: no limitations History of Present Illness HPI Narrative: The patient is an 84-year-old male with known coronary artery disease, peripheral vascular disease and recent ileostomy for bowel obstruction, may taken decrease in oral intake he threw up once today. He has no abdominal pain. Family member states that he has lost weight over the past few days. He is unable to keep any fluids down simply because he has no interest in drinking. He is noted to be hypotensive here in the emergency department. He does have a hiccups in when he has hiccups he describes a burning sensation chest. He denies any heart palpitations or shortness of breath. MD complaint: nausea and vomiting Related Data Home Medications Medication Instructions Recorded Confirmed clopidogrel [Plavix] 75 mg PO QDAY #0 02/12/16 10/14/19 isosorbide mononitrate 40 mg PO DAILY #0 02/12/16 10/14/19 atenolol 25 mg tablet 25 mg PO DAILY 11/02/17 10/14/19 cholecalciferol (vitamin D3) 25 1,000 unit PO DAILY 11/02/17 10/14/19 mcg (1,000 unit) capsule glipizide 5 mg tablet 5 mg PO BID 11/02/17 10/14/19 valsartan 80 mg tablet 80 mg PO DAILY 11/02/17 10/14/19 aspirin [Adult Aspirin Regimen] 81 mg PO DAILY 09/16/19 10/14/19 atorvastatin 20 mg PO DAILY 09/16/19 10/14/19 cilostazol 50 mg PO BID 09/16/19 10/14/19 mirtazapine 7.5 mg PO BEDTIME 09/16/19 10/14/19 pantoprazole 40 mg PO DAILY 09/16/19 10/14/19 methocarbamol 1,500 mg PO TID 10/14/19 10/14/19 Allergies Allergy/AdvReac Type Severity Reaction Status Date / Time No Known Drug Allergies Allergy Verified 09/16/19 09:29 Review of Systems Review of Systems ROS Unobtainable: All systems reviewed & are unremarkable except as noted in HPI and below Constitutional Constitutional: Denies chills, Reports fatigue, Denies fever(s), Denies lethargy, Reports poor appetite and Reports weakness Eyes Eyes: Denies change in vision, Denies eye discharge, Denies irritation and Denies loss of vision ENT Ears, Nose, Mouth, and Throat: Denies change in voice, Denies neck pain and Denies sore throat Cardiovascular Cardiovascular: Denies chest pain Respiratory Respiratory: Denies cough and Denies pain with cough Gastrointestinal Gastrointestinal: Reports as per HPI, Denies abdominal pain, Denies heartburn and Reports nausea Musculoskeletal Musculoskeletal: Denies back pain and Denies neck pain Integumentary/Breasts Skin/Breast: Denies pruritus, Denies erythema, Denies rash and Denies wounds Neurologic Neurologic: Denies loss of vision and Reports weakness Endocrine Endocrine: Reports fatigue Patient History Medical History Arthritis (Acute) Coronary artery disease (Acute) Diabetes type 2, controlled (Acute) Heart disease (Acute) Surgical History History of cataract removal with insertion of prosthetic lens History of cataract removal with insertion of prosthetic lens Status post cholecystectomy Status post partial mastectomy Family History Brother Cancer Grandmother Diabetes mellitus Mother Heart disease Father Heart disease Social History marital status: household members: spouse Smoking Status: Former smoker Tobacco: How many years used: 20 Smokeless tobacco user: other (Cigarettes) quit status: quit date established (Stopped at age 39.) alcohol intake: current additional social history: Caffiene: 1 1/2 cups of Coffee 1-2 cans of soda a day Smoking Status: Former smoker alcohol intake frequency: holidays/special occasions only Substance Use Type: does not use Exam Initial Vital Signs Initial Vital Signs: Vital Signs Temperature 98.0 F 10/14/19 15:39 Pulse Rate 89 10/14/19 15:39 Respiratory Rate 16 10/14/19 15:39 Blood Pressure 81/44 L 10/14/19 15:39 Pulse Oximetry 98 10/14/19 15:39 GENERAL: Week elderly male and in no acute distress. HEENT: Head atraumatic,EOMI, pupils reactive, face symmetric, dry mucous membranes CARDIOVASCULAR: Regular rate and rhythm without murmurs, rubs or gallops. RESPIRATORY: Breath sounds equal bilaterally, no wheezes rales or rhonchi. ABDOMEN: Soft, nontender. Normoactive bowel sounds all 4 quadrants. No guarding or rebound. Ileostomy noted on right side, good output scar noted vertically healing incision EXTREMITIES: Normal range of motion, no clubbing or edema. Neurovascularly intact NEUROLOGICAL: Alert and oriented x4.Normal gait and speech. Cranial nerves II through XII grossly intact. SKIN: Warm, dry, no laceration, no petechiae, no rashes or lesions. Course Orders Ordered: ED Orders 10/14/19 15:50 Complete Blood Count AUTO DIFF Stat Comprehensive Metabolic Panel Stat Lactate (Lactic Acid) Stat Lipase Stat Partial Thromboplastin Time Stat Prothrombin Time INR Stat Troponin & CK Cardiac Panel Stat 10/14/19 17:13 XR acute abdomen series Stat 10/14/19 17:39 EKG-12 Lead Stat Acetaminophen (Tylenol) 650 mg PO Q6HR PRN PRN Reason: Fever/Mild Pain (1-3) Hydrocodone Bitart/Acetaminophen ([place] 5/325) 1 tab PO Q4HR PRN PRN Reason: Pain, Moderate (4-6) Aspirin (Aspirin Ec) 81 mg PO DAILY [facility] Atenolol (Tenormin) 25 mg PO DAILY [facility] Atorvastatin Calcium (Lipitor) 20 mg PO BEDTIME [facility] Cilostazol (Pletal) 50 mg PO BID [facility] Clopidogrel Bisulfate (Plavix) 75 mg PO DAILY [facility] Heparin Sodium (Porcine) (Heparin) 5,000 unit SUBCUT BID [facility] Sodium Chloride (Normal Saline 0.9%) 1,000 mls @ 1,000 mls/hr IV CONT MEJIA Last Infusion: 10/14/19 17:25 Dose: 0 mls/hr Documented by: Admin: 10/14/19 16:18 Dose: 1,000 mls/hr Documented by: BACILIO Dextrose/Sodium Chloride (Dextrose 5%-0.45% Ns) 1,000 mls @ 100 mls/hr IV CONT MEJIA Isosorbide Mononitrate (Isosorbide Mononitrate) 40 mg PO DAILY [facility] Naloxone HCl (Narcan) 0.2 mg IV Q2MIN PRN PRN Reason: Opiate Reversal Ondansetron HCl (Zofran) 4 mg IV Q8HR PRN PRN Reason: Nausea And Vomiting Pantoprazole Sodium (Protonix) 40 mg IV DAILY [facility] Discontinued Medications Al Hydrox/Mg Hydrox/Simethicone 20 ml/ Lidocaine HCl 15 ml 0 ml PO NOW ONE Stop: 10/14/19 17:36 Last Admin: 10/14/19 18:00 Dose: 45 ml Documented by: BREANNA Pantoprazole Sodium (Protonix) 40 mg IV NOW ONE Stop: 10/14/19 16:04 Last Admin: 10/14/19 16:18 Dose: 40 mg Documented by: BACILIO Pantoprazole Sodium (Protonix) 40 mg IV NOW ONE Stop: 10/14/19 17:07 Last Admin: 10/14/19 17:25 Dose: Not Given Documented by: BACILIO Valsartan (Diovan) 80 mg PO DAILY [facility] Vital Signs Vital signs: Vital Signs - 8 hr 10/14/19 15:39 10/14/19 16:24 10/14/19 16:30 Temperature 98.0 F Pulse Rate 89 78 78 Respiratory Rate 16 19 18 Blood Pressure 81/44 L 85/49 L 87/52 L Pulse Oximetry 98 97 99 10/14/19 17:00 Temperature Pulse Rate 77 Respiratory Rate 24 Blood Pressure 126/58 L Pulse Oximetry 100 MDM - Nausea/Vomiting/Diarrhea Lab Data Attestation: I reviewed the patient's lab results. Result diagrams: 10/14/19 15:50 10/14/19 15:50 Labs: Lab Results 10/14/19 10/14/19 10/14/19 Range/Units 15:50 15:50 15:50 WBC 9.8 (4.5-11.0) X10^3/uL RBC 3.75 L (4.5-5.9) X10^6/uL Hgb 12.5 L (13.5-17.5) g/dL Hct 36.5 L (41-53) % MCV 97.3 (80-100) fL MCH 33.5 (26-34) PG MCHC 34.4 (30-36) % RDW 14.3 (11.6-14.8) % Plt Count 246 (150-400) X10^3/uL Neut % (Auto) 76.4 H (50-75) % Lymph % (Auto) 14.4 L (25-40) % [place] % (Auto) 7.3 (3-14) % Eos % (Auto) 1.5 L (2-4) % Baso % (Auto) 0.4 (0-2) % Neut # (Auto) 7500 H (7654-0136) /uL Lymph # (Auto) 1400 (0705-3347) /uL [place] # (Auto) 700 (0-900) /uL Eos # (Auto) 100 (0-450) /uL Baso # (Auto) 0 (0-100) /uL PT 11.9 (10.1-12.7) SECONDS INR 1.0 (0.9-1.3) APTT 35 D (26.4-36.2) SECONDS Sodium (137-145) mmol/L Potassium (3.4-5.1) mmol/L Chloride (98-107) mmol/L Carbon Dioxide (22-32) mmol/L BUN (9-20) mg/dL Creatinine (0.66-1.25) mg/dL Estimated GFR (>60) mL/min BUN/Creatinine Ratio (6-22) Glucose (80-110) mg/dL Lactate 1.8 (0.7-2.1) mmol/L Calcium (8.4-10.2) mg/dL Total Bilirubin (0.2-1.3) mg/dL AST (17-59) IU/L ALT (<50) IU/L Alkaline Phosphatase (38-126) U/L Total Creatine Kinase (55-170) U/L CK-MB (CK-2) CK-MB (CK-2) Rel Index Troponin I (0.01-0.034) ng/mL Total Protein (6.3-8.2) g/dL Albumin (3.5-5.0) g/dL Globulin (1.7-4.1) g/dL Albumin/Globulin Ratio (1.0-2.8) Prealbumin (17.6-36.0) mg/dL Lipase (23-300) U/L 10/14/19 10/14/19 Range/Units 15:50 15:50 WBC (4.5-11.0) X10^3/uL RBC (4.5-5.9) X10^6/uL Hgb (13.5-17.5) g/dL Hct (41-53) % MCV (80-100) fL MCH (26-34) PG MCHC (30-36) % RDW (11.6-14.8) % Plt Count (150-400) X10^3/uL Neut % (Auto) (50-75) % Lymph % (Auto) (25-40) % [place] % (Auto) (3-14) % Eos % (Auto) (2-4) % Baso % (Auto) (0-2) % Neut # (Auto) (0874-2405) /uL Lymph # (Auto) (4892-4862) /uL [place] # (Auto) (0-900) /uL Eos # (Auto) (0-450) /uL Baso # (Auto) (0-100) /uL PT (10.1-12.7) SECONDS INR (0.9-1.3) APTT (26.4-36.2) SECONDS Sodium 133 L (137-145) mmol/L Potassium 5.2 H (3.4-5.1) mmol/L Chloride 102 (98-107) mmol/L Carbon Dioxide 18 L (22-32) mmol/L BUN 69 H (9-20) mg/dL Creatinine 2.44 H (0.66-1.25) mg/dL Estimated GFR 25.4 L (>60) mL/min BUN/Creatinine Ratio 28.3 H (6-22) Glucose 145 H (80-110) mg/dL Lactate (0.7-2.1) mmol/L Calcium 11.6 H (8.4-10.2) mg/dL Total Bilirubin 0.5 (0.2-1.3) mg/dL AST 65 H (17-59) IU/L ALT 52 H (<50) IU/L Alkaline Phosphatase 79 (38-126) U/L Total Creatine Kinase < 20 L (55-170) U/L CK-MB (CK-2) TNP CK-MB (CK-2) Rel Index TNP Troponin I < 0.012 (0.01-0.034) ng/mL Total Protein 8.2 (6.3-8.2) g/dL Albumin 4.5 (3.5-5.0) g/dL Globulin 3.7 (1.7-4.1) g/dL Albumin/Globulin Ratio 1.2 (1.0-2.8) Prealbumin 45.0 H (17.6-36.0) mg/dL Lipase 331 H (23-300) U/L Imaging Data Abdominal x-ray: Radiologist's Impression: PROCEDURE: XR ACUTE ABDOMEN SERIES INDICATIONS: ab pain TECHNIQUE: One view chest and two views of the abdomen were acquired. COMPARISON: None. FINDINGS: Surgical changes and devices: Median sternotomy wires are noted. Surgical clips are also noted in mid to lower abdomen. Aorto bi-iliac stent graft is noted. Chest: Lungs are clear. Heart size is normal. No pleural effusions. No pneumoperitoneum. Abdomen: Bowel gas pattern is normal. No suspicious calcifications. Visualized solid organ contours appear normal. Bones: No suspicious bony lesions. IMPRESSION: No evidence of bowel obstruction or gross free air. No acute cardiopulmonary pathology. Dictated by: Marshall Best M.D. on 10/14/2019 at 17:38 Approved by: Marshall Best M.D. on 10/14/2019 at 17:39 ECG Data Attestation: I personally reviewed and interpreted this ECG as follows: Prior ECG tracings: available for review Interpretation: Normal sinus rhythm rate 78 p.r. interval 282 QRS [address] elevation depression or T-wave inversion MDM Narrative Medical decision making narrative: Patient is hypotensive with increased creatinine and decreased oral intake he is clearly dry and acutely dehydrated. Abdominal x-ray is negative and he has no abdominal pain or distention. He apparently has no interest in eating although he did have some cream of weak this morning. Dr. winters updated on symptoms test results agrees with observation Discharge Plan Departure Patient Disposition: Admitted as Observation Clinical Impression: Acute dehydration Discharge Date/Time: 10/14/19 18:13 Referrals: Luis Carlos Stewart MD [Primary Care Provider] - Admit Date/Time: 10/14/19 17:21 Admit Provider: Caterina Winters
[2019-10-14 16:10] LABS: Add Manual Diff / Slide Review NO; Basophils Absolute Auto 0 /uL (0-100); Basophils Percent Auto 0.4 % (0-2); Eosinophils Absolute Auto 100 /uL (0-450); Eosinophils Percent Auto 1.5 % (2-4); Hematocrit 36.5 % (41-53); Hemoglobin 12.5 g/dL (13.5-17.5); Lymphocytes Absolute Auto 1400 /uL (1100-4500); Lymphocytes Percent Auto 14.4 % (25-40); Mean Corpuscular HGB Conc 34.4 % (30-36); Mean Corpuscular Hemoglobin 33.5 PG (26-34); Mean Corpuscular Volume 97.3 fL (80-100); Monocytes Absolute Auto 700 /uL (0-900); Monocytes Percent Auto 7.3 % (3-14); Neutrophils Absolute Auto 7500 /uL (1500-7000); Neutrophils Percent Auto 76.4 % (50-75); Platelet Count 246 X10^3/uL (150-400); Red Blood Cell Count 3.75 X10^6/uL (4.5-5.9); Red Cell Distribution Width 14.3 % (11.6-14.8); White Blood Cell Count 9.8 X10^3/uL (4.5-11.0)
[2019-10-14 16:14] LABS: Prothrombin Time 11.9 SECONDS (10.1-12.7)
[2019-10-14 16:17] LABS: PTT Partial Thromboplastin Tim 35 SECONDS (26.4-36.2)
[2019-10-14] MEDS: SODIUM CHLORIDE 0.9% 1,000 ML 1000 ML IV (16:18)
[2019-10-14] MEDS: PANTOPRAZOLE 40 MG VIAL IV (16:18)
[2019-10-14 16:21] LABS: Lactate (Lactic Acid) 1.8 mmol/L (0.7-2.1)
[2019-10-14 16:23] LABS: Alanine Aminotransferase 52 IU/L (<50); Albumin 4.5 g/dL (3.5-5.0); Albumin Globulin Ratio 1.2 (1.0-2.8); Alkaline Phosphatase 79 U/L (38-126); Aspartate Aminotransferase 65 IU/L (17-59); BUN Creatinine Ratio 28.3 (6-22); Bilirubin Total 0.5 mg/dL (0.2-1.3); Blood Urea Nitrogen 69 mg/dL (9-20); Calcium 11.6 mg/dL (8.4-10.2); Carbon Dioxide 18 mmol/L (22-32); Chloride 102 mmol/L (98-107); Creatine Kinase < 20 U/L (55-170); Estimated Glomerular Filt Rate 25.4 mL/min (>60); Globulin 3.7 g/dL (1.7-4.1); Glucose 145 mg/dL (80-110); HEMOLYSIS 27 (0-50); Lipase 331 U/L (23-300); Potassium 5.2 mmol/L (3.4-5.1); Sodium 133 mmol/L (137-145); Total Protein 8.2 g/dL (6.3-8.2)
[2019-10-14 16:34] LABS: Troponin I < 0.012 ng/mL (0.01-0.034)
--- NOTE | 2019-10-14 17:13 | DI.RAD.S_ITS ---
PROCEDURE: XR ACUTE ABDOMEN SERIES INDICATIONS: ab pain TECHNIQUE: One view chest and two views of the abdomen were acquired. COMPARISON: None. FINDINGS: Surgical changes and devices: Median sternotomy wires are noted. Surgical clips are also noted in mid to lower abdomen. Aorto bi-iliac stent graft is noted. Chest: Lungs are clear. Heart size is normal. No pleural effusions. No pneumoperitoneum. Abdomen: Bowel gas pattern is normal. No suspicious calcifications. Visualized solid organ contours appear normal. Bones: No suspicious bony lesions. IMPRESSION: No evidence of bowel obstruction or gross free air. No acute cardiopulmonary pathology. Dictated by: Marshall Best M.D. on 10/14/2019 at 17:38 Approved by: Marshall Best M.D. on 10/14/2019 at 17:39
[2019-10-14] MEDS: MAG HYDROX/ALUMINUM/SIMETH SUS 20 ML, LIDOCAINE VISCOUS 2% 15 ML PO (18:00)
[2019-10-14] MEDS: DEXTROSE 5%-0.45% NS 1,000 ML 100 ML IV (18:45)
--- NOTE | 2019-10-14 18:46 | PM.HP.1 ---
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 The patient had his surgery roughly 2 weeks ago. Was in the hospital for about 1 week and then discharged home. According to his his appetite was poor at the hospital. His reports he has lost 18 lb over the past 2 weeks. Since he has been home he has had very poor appetite. He has been unable to eat or drink. He has tolerated his medications. He has been lightheaded and dizzy. He also reports feeling quite weak. Patient describes having heartburn and indigestion. He had 1 episode of vomiting today. He has had no hematemesis melena or bright red blood per rectum. He reports that his ostomy is working well and he has excellent stool from his ostomy and gas. He reports some abdominal pain around the surgical site. It is a dull at times sharp pain that has persisted since his surgery. Pain is unchanged and has not gotten worse. He denies any fever chills or cough. He has no dysuria hematuria or pyuria. He was seen and evaluated in the emergency room and found to be markedly dehydrated. Patient also was found to be in acute renal failure with an elevated BUN and creatinine. He is admitted to the hospital for treatment evaluation of anorexia, volume depletion, acute renal failure, dehydration, severe protein calorie malnutrition. Patient History Medical History Arthritis (Acute) Coronary artery disease (Acute) Diabetes type 2, controlled (Acute) Heart disease (Acute) Surgical History History of cataract removal with insertion of prosthetic lens History of cataract removal with insertion of prosthetic lens Status post cholecystectomy Status post partial mastectomy Family & Social History Family History Brother Cancer Grandmother Diabetes mellitus Mother Heart disease Father Heart disease Social History: household members spouse Safety & Behavioral: Feels Safe in Current Yes Environment Been Physically Hurt or No Threatened By a Person Suicidal Ideation Description None Suicide Plan Description No Plan Tobacco & Substance use: Smoking Status Former smoker alcohol intake current alcohol intake frequency holiday/special occasion Substance Use Type does not use Meds Home Medications and Allergies Home Medications Medication Instructions Recorded Confirmed Type clopidogrel [Plavix] 75 mg PO QDAY #0 02/12/16 10/14/19 History isosorbide mononitrate 40 mg PO DAILY #0 02/12/16 10/14/19 History atenolol 25 mg tablet 25 mg PO DAILY 11/02/17 10/14/19 History cholecalciferol (vitamin D3) 25 1,000 unit PO DAILY 11/02/17 10/14/19 History mcg (1,000 unit) capsule glipizide 5 mg tablet 5 mg PO BID 11/02/17 10/14/19 History valsartan 80 mg tablet 80 mg PO DAILY 11/02/17 10/14/19 History aspirin [Adult Aspirin Regimen] 81 mg PO DAILY 09/16/19 10/14/19 History atorvastatin 20 mg PO DAILY 09/16/19 10/14/19 History cilostazol 50 mg PO BID 09/16/19 10/14/19 History mirtazapine 7.5 mg PO BEDTIME 09/16/19 10/14/19 History pantoprazole 40 mg PO DAILY 09/16/19 10/14/19 History methocarbamol 1,500 mg PO TID 10/14/19 10/14/19 History Allergies Allergy/AdvReac Type Severity Reaction Status Date / Time No Known Drug Allergies Allergy Verified 09/16/19 09:29 Review of Systems Review of Systems ROS: Yes All systems reviewed with the patient and are negative except as otherwise documented Exam Vital Signs (past 8 hours): - 10/14/19 15:39 10/14/19 16:24 10/14/19 16:30 Temperature 98.0 F Pulse Rate 89 78 78 Respiratory Rate 16 19 18 Blood Pressure 81/44 L 85/49 L 87/52 L Pulse Oximetry 98 97 99 10/14/19 17:00 10/14/19 17:30 10/14/19 18:00 Temperature Pulse Rate 77 72 82 Respiratory Rate 24 24 Blood Pressure 126/58 L 155/58 H Pulse Oximetry 100 92 71 L 10/14/19 18:15 Temperature 97 F L Pulse Rate 81 Respiratory Rate 20 Blood Pressure 142/60 H Pulse Oximetry 97 Oxygen Delivery Method Room Air Narrative Exam Narrative: Ill-appearing male lying in bed HEENT: Normocephalic atraumatic, extraocular muscles are intact, oropharynx reveals moist mucous membranes, neck is supple without adenopathy Lungs: Clear to auscultation, no rhonchi crackles or wheezes Cardiac exam: Regular rate and rhythm, normal S1-S2, 2/6 systolic ejection murmur Abdomen: Soft, nontender, hypoactive bowel tones, ileostomy in place, liquid brown stool and gas in the bag. Patient has well-healed midline surgical incision. He has bilateral well-healed groin incision. Patient has no rebound tenderness, his minimal tenderness on the inferior portion of the ileostomy bag. There is no board-like rigidity, no distension no palpable mass Extremities: No edema Skin exam: Scaly dry Neuro exam: Cranial nerves 2-12 are intact, strength is symmetric and equal, sensations grossly intact although the patient complains of numbness under the feet in the anterior marcial thigh on the left reflexes are equal gait is not assessed Psychiatric exam patient is hard hearing but answers questions appropriately he is awake without any delusion hallucination or confusion Objective Labs Result Diagrams: 10/14/19 15:50 10/14/19 15:50 Labs: Laboratory Results - last 24 hr 10/14/19 10/14/19 10/14/19 15:50 15:50 15:50 WBC 9.8 RBC 3.75 L Hgb 12.5 L Hct 36.5 L MCV 97.3 MCH 33.5 MCHC 34.4 RDW 14.3 Plt Count 246 Neut % (Auto) 76.4 H Lymph % (Auto) 14.4 L [place] % (Auto) 7.3 Eos % (Auto) 1.5 L Baso % (Auto) 0.4 Neut # (Auto) 7500 H Lymph # (Auto) 1400 [place] # (Auto) 700 Eos # (Auto) 100 Baso # (Auto) 0 PT 11.9 INR 1.0 APTT 35 D Sodium Potassium Chloride Carbon Dioxide BUN Creatinine Estimated GFR BUN/Creatinine Ratio Glucose Lactate 1.8 Calcium Total Bilirubin AST ALT Alkaline Phosphatase Total Creatine Kinase CK-MB (CK-2) CK-MB (CK-2) Rel Index Troponin I Total Protein Albumin Globulin Albumin/Globulin Ratio Lipase 10/14/19 15:50 WBC RBC Hgb Hct MCV MCH MCHC RDW Plt Count Neut % (Auto) Lymph % (Auto) [place] % (Auto) Eos % (Auto) Baso % (Auto) Neut # (Auto) Lymph # (Auto) [place] # (Auto) Eos # (Auto) Baso # (Auto) PT INR APTT Sodium 133 L Potassium 5.2 H Chloride 102 Carbon Dioxide 18 L BUN 69 H Creatinine 2.44 H Estimated GFR 25.4 L BUN/Creatinine Ratio 28.3 H Glucose 145 H Lactate Calcium 11.6 H Total Bilirubin 0.5 AST 65 H ALT 52 H Alkaline Phosphatase 79 Total Creatine Kinase < 20 L CK-MB (CK-2) TNP CK-MB (CK-2) Rel Index TNP Troponin I < 0.012 Total Protein 8.2 Albumin 4.5 Globulin 3.7 Albumin/Globulin Ratio 1.2 Lipase 331 H Assessment & Plan Assessment & Plan narrative: Impression 1. 84-year-old male 2 weeks status post ileostomy/sigmoid resection for sigmoid stricture admitted to the hospital for dehydration, anorexia, generalized malaise -patient reports inability to eat since his surgery -KUB in the emergency department reveals no evidence of obstruction -abdominal pain appears to be consistent with postoperative surgical pain. However would consider CT of the abdomen and pelvis once renal function has improved -would notify Dr. Krause his surgeon that the patient is here with postoperative complication -will ask dietary to consult -given significant weight loss with consider PICC line and TPN -consider Megace as an appetite stimulant as well 2. Severe protein calorie malnutrition -patient with an 18 lb weight loss over the past 2 weeks -patient with evidence of marked dehydration manifested as hypotension -dietary consult as above 3. Acute renal failure -suspect related to dehydration and hypotension -will follow-up electrolytes in the morning -will hold ARB at this time 4. Hypertension -continue beta-rasheeda 5. Peripheral vascular disease -continue aspirin, Plavix,l cilostazol 6. Hyperlipidemia -continue statin 7 coronary artery disease -continue Isordil, aspirin, Plavix, a tunnel 8. GERD -will continue proton, IV as the patient is nauseated 9. Type 2 diabetes Will hold glipizide as the patient is not eating blood sugars are low, and now with worsening renal failure will hold his oral hypoglycemic agent Will check blood sugar, consider sliding scale if sugars elevate Will start heparin 5000 units b.i.d., patient's is his DPOA who is at the bedside, patient is DNR will note that his record accordingly Patient is admitted as an inpatient given his renal failure, recent surgery, multiple comorbidities Anticipate hospitalization of 2 or more days. -
[2019-10-14 19:34] LABS: Thyroid Stimulating Hormone 4.92 uIU/mL (0.47-4.68)
[2019-10-14] MEDS: ATORVASTATIN 20 MG TABLET PO (21:22)
[2019-10-14] MEDS: cilostazoL 50 MG TABLET PO (21:22)
[2019-10-14] MEDS: HEPARIN 5,000 UNIT/ML VIAL 5000 UNIT SUBCUT (21:22)
--- NOTE | 2019-10-14 21:59 | PC.NURSE ---
1813 Pt arrived via gurney from ED, A/Ox3, VSS, able to ambulate from gurney to bed, at bedside. Pt able to participate in admission and assessment. Oriented pt to room and call light system, able to make needs known. Bed low and locked, call light within reach as well as belongings. Will continue to monitor.
[2019-10-15] VITALS (8 sets, daily range): BP systolic 99–149; BP diastolic 51–65; PULSE 65–79; RESP 16–20; TEMP 36.3–36.6; O2SAT 85–96
[2019-10-15] MEDS: DEXTROSE 5%-0.45% NS 1,000 ML 100 ML IV ×2 (05:53→17:08)
[2019-10-15] MEDS: HEPARIN 5,000 UNIT/ML VIAL 5000 UNIT SUBCUT ×2 (09:29→20:19)
[2019-10-15] MEDS: PANTOPRAZOLE 40 MG VIAL IV (09:29)
[2019-10-15] MEDS: atenoloL 25 MG TABLET PO (09:29)
[2019-10-15] MEDS: CLOPIDOGREL 75 MG TABLET PO (09:29)
[2019-10-15] MEDS: ISOSORBIDE MONONITRATE 20 MG TABLET 40 MG PO (09:29)
[2019-10-15] MEDS: cilostazoL 50 MG TABLET PO ×2 (09:29→20:19)
[2019-10-15] MEDS: ASPIRIN EC 81 MG TABLET PO (09:29)
--- NOTE | 2019-10-15 10:24 | DIET.PN ---
Addendum entered by Marisela Nova 10/15/19 13:26: Pt tolerating Ensure Enlive x2 today c guamanian muffin and cream cheese. Provided pt d/c reccs of continuing ONS Ensure Enlive, one for each missed meal until eating normally c rebound weight gain. If renal labs worsen, recc switching to ONS Nepro. Provided coupons. Original Note: Dietary Progress Note Assessment: 84y M admitted for not able to tolerate POs s/p ileostomy (done at [facility] 2w ago) referred to nutrition for severe unintentional weight loss and malnutrition assessment. Pt and spouse endorsed adequate teaching upon d/c from ileostomy procedure. Pt having adequate output c no blockages noted. Pt trying to entice PO intake c variety of ileostomy appropriate foods with little success. Pt has been experiencing N/V and severe decrease in appetite. Has been drinking 1 regular Ensure/d but nothing much else which provided 10% kcal and 20% PRO needs. Pt endorses fatigue, weakness, depression, has numerous scattered bruising on face and arms. HT: 167.6cm WT: 68.0kg UBW: 88.4kg (per [facility] records on 09/17/2019) BMI: 24.2 (was 31.3 1mo ago) Labs: Na 133 L, K+ 5.2 H, Cr 2.44 H, eGFR 25.4 L, Ca 11.6 H, pre-albumin 45 H MNA: 6 malnourished Matthew: 15 high risk for skin breakdown Nutrition Diagnosis: Severe Acute PCM r/t low appetite, N/V for past 2w s/p ileostomy for intestinal stricture aeb 23% wt loss in 1mo (severe), <25% EERs for 2w c associated N/V, admitted c VIANIA and dehydration associated hypotension, weakness. Interventions: 1. To address PCM, trialing ONS Ensure Enlive tid for pt acceptance and tolerance provides 50% kcals and 86% PRO in addition to meals. 2. Watching renal labs for protein tolerance, pt on general diet to encourage POs, can change to renal/HH/CCD as needed per labs. 3. Educated pt and spouse on appropriate ONS to support nitrogen balance for increased immune fxn, energy, and to support positive nitrogen balance. Diet Order:General EER: 2,000kcal (30kcal/kg per PCM), 70g PRO (1g/kg per PCM and IVANIA) Monitoring/Evaluations: Diet and ONS tolerance
--- NOTE | 2019-10-15 10:40 | CM.DANOTE ---
DCP: Case received, EMR reviewed and met with patient. Introduced self and role. Was able to obtain information from patient regarding his baseline activity level prior to hospitalization, as well as some medical history. DCP assessment completed with information currently available. Patient is an 84 year old male who admitted yesterday afternoon to the care of the hospitalist team. PCP: Dr. Stewart. Payer: confirmed: [employer]. Patient came to the hospital secondary to decreased appetite and weakness. 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 Since being home, he has had minimal appetite. He is currently diagnosed with acute renal failure, as well as anorexia and dehydration. Marisela, contracts analyst, is working with patient for protein deficit. Met with patient in his room. He is alert and oriented, sitting up with his breakfast. He stated, I really don't have much of an appetite for this. He resides in [place] with his spouse, Brian, who was later at bedside. He is independent as far as mobility. He will be working with P.T. as well. P: DCP to continue to follow closely for any needs. He should be able to go home when medically stable. Home Health could be an option, will see what P.T. recommends. Lyn Goss RN/[employer] Received
--- NOTE | 2019-10-15 12:18 | PT.IIE ---
Current Diagnoses Acute kidney failure, unspecified (10/14/19) Surgical History (Last Reviewed 10/14/19 @ 18:49 by Caterina Winters MD) History of cataract removal with insertion of prosthetic lens History of cataract removal with insertion of prosthetic lens Status post cholecystectomy Status post partial mastectomy Medical History (Last Reviewed 10/14/19 @ 18:49 by Caterina Winters MD) Arthritis (Acute) Coronary artery disease (Acute) Diabetes type 2, controlled (Acute) Heart disease (Acute) Physical Therapy Inpatient Evaluation/Re-Eval M1 PT/OT-IP Prior Functional Status Start: 10/15/19 10:49 Freq: NEEDED Status: Active Protocol: Document 10/15/19 11:56 HH (Rec: 10/15/19 12:18 HH [email or web address]) Medical Review Prior Functional Status Medical History Reviewed Yes Diet/Fluid Consistency Regular,Full Liquids Communication no deficits noted. able to make needs known Mobility and Gait Pt was independent for all mobility. [facility] SPC/ 4WW [facility] Pt reports he was somewhat unsteady since then and had one fall within the past 2 weeks since he had ileostomy. Activities of Daily Living and IADL's Independent for all ADLs and IADLs without AD. However, pt was not eating for the past 2 weeks since ileostomy. Social History Household Members spouse Living Arrangements House Number of Floors (Floors) One Floor Number of Stairs To Enter/Railing? 3 ENZO to front entrance without railings 2STE to back entrance with B rails Home Environment High Toilet,Walk in Shower, Built-In Shower Seat Home Equipment Front Wheel Walker,Four Wheel Walker,Straight Cane,Grab Bars In Shower Additional Social History Comment Pt lives with his who works for [employer] in [place]. His is active and independent who will be able to assist as needed. Pt also has children that live in [place] and willing to help if needed. Pt has a hx of HTN, DM2, CAD, PAD. He recently had a heart sx in [facility] in [place] who was hospitalized for 33 days including coma for 2 days. He stated his mobility has significantly declined since but still able to function independently. Pt also had an ileostomy 2 weeks ago at [facility] and returned home with home health after but cont to have poor appetite and generalized weakness M2 PT-IP Current Condition Start: 10/15/19 10:49 Freq: NEEDED Status: Active Protocol: Document 10/15/19 11:56 HH (Rec: 10/15/19 12:18 [email or web address]) Physical Therapy Current Condition Current Condition Evaluation Date 10/15/19 Treatment Diagnosis Acute renal failure post ileostomy, dehydration, generalized weakness Onset Date 2 weeks ago Weight Bearing Status Weight Bearing Status Full Weight Bearing M3 PT-IP Subjective Start: 10/15/19 10:49 Freq: NEEDED Status: Active Protocol: Document 10/15/19 11:56 HH (Rec: 10/15/19 12:18 [email or web address]) Subjective Physical Therapy Visit Type Type Initial Evaluation Visit Start Time 11:10 Visit Stop Time 11:36 Total Visit Minutes 26 Notes Pt has been up to bathroom with nursing without using AD Number of SPECIAL EDUCATION ASSISTANT Visits 0 Physical Therapy Visit Comments Patient Comments Im feeling better and start eating again. Patient Goals to regain his appetite and mobility. Therapy Pain Assessment Pain When Pain Assessed At Rest Pain Present Pain Present Denied Pain M4 PT-IP Mobility and Gait Start: 10/15/19 10:49 Freq: NEEDED Status: Active Protocol: Document 10/15/19 11:56 HH (Rec: 10/15/19 12:18 [email or web address]) PT-Bed Mobility Assessment Supine to Sit Supine to Sit Standby Assistance Scooting Scooting to Edge of Bed Standby Assistance PT-Transfer Assessment Sit to and From Stand Sit to and from Stand Standby Assistance,Use of Upper Extremities Equipment Transfer Assistive Device Gait Belt Orthotic/Prosthetic Devices or Brace: No Transfers Transfer Destination Bed,Chair Transfer Technique Stand Step Pivot Transfer Ability Level of Assist Standby Assistance,Use of Upper Extremities Comments Mobility Comments Pt was in bed upon PT arrival. BP at 127/64 SpO2 97% AxO4 and reported improved appetite . He agreed to mobilize with PT. Pt initially placed himself in hooklying position followed by using momentum to rock himself into long sit position. Educated pt to use log roll position for safety purpose but he stated he has been doing this for years and it does not cause any discomfort. He then stood up from EOB with UEs push off from bed SBA. He was able to amb immediately without AD with CGA. Pt walked from his room to [facility] and returned since he reported of SOB and fatigue after 250 ft. He also needed CGA towards the end d/t faitgue. Pt also presented slight trendelenburg sign on L towards the end of session but denied discomfort. He was able to return to his room and transferred himself to chair comfortably and safely. BP at 149/64 SpO2 98%. Notified nursing regarding pt 's SBA/CGA status but elevated BP. recommended pt and nursing to go for long walk with SBA/CGA . Gait Assessment Gait Gait Assistance Required: Standby Assistance,Contact Guard Assist Distance (Feet) 480 Able to Maintain Weight Bearing Status Yes During Gait Assistive Devices Assistive Device Gait Belt Orthotic/Prosthetic Devices or Brace: No Gait Deviations General Gait Pattern Antalgic,Decreased Stride Length,Decreased Feet Clearance Factors Limiting Gait Function Factors Limiting Gait Function Decreased Activity Tolerance, Decreased Strength,Respiratory Distress Comments Gait Comments see mobility comments Stair Climbing Assessment Comments Stair Climbing Comments did not assess d/t fatigue. PT-Balance Assessment Sitting Balance and Reactions Static Sitting Balance Ability Normal Dynamic Sitting Balance Ability Normal Standing Balance and Reactions Static Standing Balance Ability Normal Dynamic Standing Balance Ability Good Device Used none M5 PT-IP Objective Assessments Start: 10/15/19 10:49 Freq: NEEDED Status: Active Protocol: Document 10/15/19 11:56 HH (Rec: 10/15/19 12:18 [email or web address]) Orientation Orientation/Cognition Level of Alertness Alert Orientation Name,Age,Birthday,Month,Date, Year,Day of Week,Place, Situation Language Function Ability No Deficits Noted Safety Awareness Understands Safety Issues Memory Description No Deficits Noted Gross Range of Motion Upper Extremity ROM Assessment Bilaterally Impaired Impairments Pt had B RTC sx. only able to reach ~ 100 degrees of flexion Lower Extremity ROM Assessment Within Functional Limits Strength Upper Extremity Strength Assessment Within Functional Limits Lower Extremity Strength Assessment Within Functional Limits Coordination Assessment Gross Coordination Gross Coordination WNL Sensation Assessment Sensation Gross Sensation WNL Light Touch Intact Proprioception (Position) Intact Muscle Tone Muscle Tone WNL Yes M6 PT-IP Treatment Start: 10/15/19 10:49 Freq: NEEDED Status: Active Protocol: Document 10/15/19 11:56 HH (Rec: 10/15/19 12:18 [email or web address]) Physical Therapy Treatment Exercises Exercises Ankle Pumps,Quad Sets Education Education Provided Safety M7 PT-IP Assessment and Plan Start: 10/15/19 10:49 Freq: NEEDED Status: Active Protocol: Document 10/15/19 11:56 (Rec: 10/15/19 12:18 [email or web address]) PT Summary Assessment and Plan Potential Rehabilitation Potential Good Status of Condition at Evaluation Evolving Summary Impairments Pain,Strength,Balance,Bed Mobility,Transfers,Gait, Activity Tolerance Assessment Summary This is a low complexity evaluation for this 84 yo male readmitted to d/t acute renal failure, dehydration, anorexia and generalized muscle weakness. Pt had ileostomy 2 weeks ago and has difficulty with appetite ever since. He lost 18 lbs within 2 weeks along with significant weakness. Upon Assessment, pt appears to have better appetite and energy level. He was able to complete mobility assessment with SBA and 480 ft without AD SBA/CGA. He did get fatigue towards the end of session but his vitals remain stable. His primariy limitation is activity tolerance at this point and expect pt to return home with 's assistance as needed once he is medically stable. Pt will also benefit from outpatient therapy to imrpove his functional mobility, balance and strength. Goals Bed Mobility Goal Independent Transfer Goal Independent Gait Goal Independent Gait Distance 500 Other Goals up down 3 steps without AD or 2 steps with B rails. Days to Meet Goals 5 Frequency of Treatment Frequency Of Treatment Once a Day Treatment Plan Physical Therapy Treatment Plan Bed Mobility Training,Transfer Training,Gait Training, Therapeutic Exercise,Balance Retraining,Discharge Planning, Neuromuscular Re-ed Other Recommendations and Next Treatment check vitals Focus up down 3 steps without AD or 2 steps with B rails. gait training see if pt would like to use log roll for bed mobility Recommendations To Nursing Amount of Assist Needed Standby Assistance Discharge Recommendations PT Discharge Recommendations Home with Assistance, Outpatient PT Transportation Needs at Discharge Private Vehicle
--- NOTE | 2019-10-15 12:42 | P.PN_ITS ---
Subjective Subjective Date Patient Seen: 10/15/19 Time Patient Seen: 13:14 Interval history: Tyler English is an 84 year old male with HTN, DM, CAD, PVD recent ileostomy for sigmoid stricture found on colonoscopy in [place] approx 2 weeks ago. Ever since his surgery his appetite has been poor and he has reportedly lost about 18 lb since surgery. He has really been unable to eat or drink much at all, but has tolerated his medications. He feels slightly better this morning and was tolerating breakfast, although he had not been vomiting up his breakfast until mid afternoon. His ostomy remains functional and he has stool and gas in the bag. He has mild tenderness around his surgical site, appropriate after his surgery. He was noted to have a calcium of 11.6 on admission as well as IVANIA and has been started on IV fluids. Repeat BMP has been ordered. Plan to recheck BMP today to further assess trend with acute kidney injury, and hypercalcemia. Exam Vital Signs (past 8 hours): - 10/15/19 06:18 10/15/19 08:15 10/15/19 11:20 Temperature 97.9 F 97.9 F Pulse Rate 65 79 78 Respiratory Rate 16 17 18 Blood Pressure 99/51 L 126/58 L 122/58 L Pulse Oximetry 96 96 96 10/15/19 11:25 Temperature 97.3 F L Pulse Rate Respiratory Rate Blood Pressure Pulse Oximetry Oxygen Delivery Method Room Air Oxygen Flow Rate 0 Narrative Exam Narrative: GENERAL APPEARANCE: Elderly male, slightly pale, in no acute distress SKIN: Inspection of the skin reveals no rashes, ulcerations or petechiae. HEENT: Normocephalic atraumatic, extraocular muscles are intact, oropharynx is clear and mucous membranes are moist, neck is supple without adenopathy NECK: Supple and symmetric. There was no thyroid enlargement, and no tenderness, or masses were felt. CHEST: Normal AP diameter and normal contour without any kyphoscoliosis. LUNGS: Auscultation of the lungs revealed no wheezes, rhonchi, or rales. CARDIOVASCULAR: There was a regular rate and rhythm without any murmurs, gallops, rubs. Peripheral pulses were 2+ and symmetric. ABDOMEN: Soft and appropriately tender over midline abdominal incision. With normal bowel sounds. No ascites was noted. Midline abdominal surgeon without significant erythema or induration, if is well-healed. MUSCULOSKELETAL: There was no tenderness or effusions noted. Muscle strength and tone were normal. EXTREMITIES: No cyanosis, clubbing or edema. NEUROLOGIC: No focal deficits, globally weak. No deficits to light touch bilateral lower extremities. Objective Labs Result Diagrams: 10/14/19 15:50 10/14/19 15:50 Labs: Laboratory Results - last 24 hr 10/14/19 10/14/19 10/14/19 15:50 15:50 15:50 WBC 9.8 RBC 3.75 L Hgb 12.5 L Hct 36.5 L MCV 97.3 MCH 33.5 MCHC 34.4 RDW 14.3 Plt Count 246 Neut % (Auto) 76.4 H Lymph % (Auto) 14.4 L [place] % (Auto) 7.3 Eos % (Auto) 1.5 L Baso % (Auto) 0.4 Neut # (Auto) 7500 H Lymph # (Auto) 1400 [place] # (Auto) 700 Eos # (Auto) 100 Baso # (Auto) 0 PT 11.9 INR 1.0 APTT 35 D Sodium Potassium Chloride Carbon Dioxide BUN Creatinine Estimated GFR BUN/Creatinine Ratio Glucose Lactate 1.8 Calcium Total Bilirubin AST ALT Alkaline Phosphatase Total Creatine Kinase CK-MB (CK-2) CK-MB (CK-2) Rel Index Troponin I Total Protein Albumin Globulin Albumin/Globulin Ratio Prealbumin Lipase TSH Nasal Screen MRSA (PCR) 10/14/19 10/14/19 10/14/19 15:50 15:50 15:50 WBC RBC Hgb Hct MCV MCH MCHC RDW Plt Count Neut % (Auto) Lymph % (Auto) [place] % (Auto) Eos % (Auto) Baso % (Auto) Neut # (Auto) Lymph # (Auto) [place] # (Auto) Eos # (Auto) Baso # (Auto) PT INR APTT Sodium 133 L Potassium 5.2 H Chloride 102 Carbon Dioxide 18 L BUN 69 H Creatinine 2.44 H Estimated GFR 25.4 L BUN/Creatinine Ratio 28.3 H Glucose 145 H Lactate Calcium 11.6 H Total Bilirubin 0.5 AST 65 H ALT 52 H Alkaline Phosphatase 79 Total Creatine Kinase < 20 L CK-MB (CK-2) TNP CK-MB (CK-2) Rel Index TNP Troponin I < 0.012 Total Protein 8.2 Albumin 4.5 Globulin 3.7 Albumin/Globulin Ratio 1.2 Prealbumin 45.0 H Lipase 331 H TSH 4.92 H Nasal Screen MRSA (PCR) 10/15/19 06:00 WBC RBC Hgb Hct MCV MCH MCHC RDW Plt Count Neut % (Auto) Lymph % (Auto) [place] % (Auto) Eos % (Auto) Baso % (Auto) Neut # (Auto) Lymph # (Auto) [place] # (Auto) Eos # (Auto) Baso # (Auto) PT INR APTT Sodium Potassium Chloride Carbon Dioxide BUN Creatinine Estimated GFR BUN/Creatinine Ratio Glucose Lactate Calcium Total Bilirubin AST ALT Alkaline Phosphatase Total Creatine Kinase CK-MB (CK-2) CK-MB (CK-2) Rel Index Troponin I Total Protein Albumin Globulin Albumin/Globulin Ratio Prealbumin Lipase TSH Nasal Screen MRSA (PCR) Negative for mrsa Assessment & Plan Assessment & Plan narrative: 1. 84-year-old male 2 weeks status post ileostomy/sigmoid resection for sigmoid stricture admitted to the hospital for dehydration, anorexia, generalized malaise. May be secondary to hypercalcemia or dehydration. -patient reports inability to eat since his surgery, improved today slightly. -KUB in the emergency department reveals no evidence of obstruction -abdominal pain appears to be consistent with postoperative surgical pain. Improved diet today and no evidence of obstruction, will hold on CT imaging. -will ask dietary to consult -consider supplemental nutrition if continued poor eating. -consider Megace as an appetite stimulant as well 2. Severe protein calorie malnutrition -patient with an 18 lb weight loss over the past 2 weeks -patient with evidence of marked dehydration manifested as hypotension -dietary consult as above 3. Acute renal failure -suspect related to dehydration and hypotension -will follow-up electrolytes in the morning -will hold ARB at this time 4. hypercalcemia, acute, present on admission - may be related to acute renal failure - repeat BMP today, send PTH if remains elevated. Continue IVF at this time to improve renal failure and elevated Ca. 5. Hyponatremia, acute, present on admisison - mild with admission Na of 133, continue IVF as noted above. 6. Hypertension -continue beta-rasheeda 7. Peripheral vascular disease -continue aspirin, Plavix,l cilostazol 8. Hyperlipidemia -continue statin 9 coronary artery disease -continue Isordil, aspirin, Plavix, a tunnel 10. GERD -will continue proton, IV as the patient is nauseated 11. Type 2 diabetes Will hold glipizide as the patient is not eating blood sugars are low, and now with worsening renal failure will hold his oral hypoglycemic agent Will check blood sugar, consider sliding scale if sugars elevate DVT: heparin 5000 units b.i.d., CODE: patient's is his DPOA who is at the bedside, patient is DNR will note that his record accordingly Patient is admitted as an inpatient given his renal failure, recent surgery, multiple comorbidities -
--- NOTE | 2019-10-15 12:56 | OT.IPNOTE ---
Approached pt for OT eval and pt states independent with all OT needs and mainly having weakness and deconditioning which PT with continue to work with the pt. Therefore discharge OT orders.
[2019-10-15 14:20] LABS: BUN Creatinine Ratio 29.3 (6-22); Blood Urea Nitrogen 61 mg/dL (9-20); Carbon Dioxide 17 mmol/L (22-32); Chloride 106 mmol/L (98-107); Estimated Glomerular Filt Rate 30.6 mL/min (>60); Glucose 163 mg/dL (80-110); HEMOLYSIS < 15 (0-50); Potassium 4.9 mmol/L (3.4-5.1); Sodium 133 mmol/L (137-145)
[2019-10-15] MEDS: ATORVASTATIN 20 MG TABLET PO (20:19)
[2019-10-16] MEDS: DEXTROSE 5%-0.45% NS 1,000 ML 100 ML IV (03:23)
[2019-10-16 05:00] VITALS: BP 129/58; PULSE 66; RESP 20; TEMP 36.3; O2SAT 99
[2019-10-16 05:06] LABS: Add Manual Diff / Slide Review NO; Basophils Absolute Auto 0 /uL (0-100); Basophils Percent Auto 0.5 % (0-2); Eosinophils Absolute Auto 300 /uL (0-450); Hematocrit 29.8 % (41-53); Hemoglobin 10.2 g/dL (13.5-17.5); Lymphocytes Absolute Auto 1900 /uL (1100-4500); Lymphocytes Percent Auto 31.1 % (25-40); Mean Corpuscular HGB Conc 34.4 % (30-36); Mean Corpuscular Hemoglobin 33.6 PG (26-34); Mean Corpuscular Volume 97.8 fL (80-100); Monocytes Absolute Auto 500 /uL (0-900); Monocytes Percent Auto 7.8 % (3-14); Neutrophils Absolute Auto 3300 /uL (1500-7000); Neutrophils Percent Auto 55.6 % (50-75); Platelet Count 162 X10^3/uL (150-400); Red Blood Cell Count 3.05 X10^6/uL (4.5-5.9); Red Cell Distribution Width 14.4 % (11.6-14.8)
[2019-10-16 05:23] LABS: Albumin 3.5 g/dL (3.5-5.0); Albumin Globulin Ratio 1.2 (1.0-2.8); Alkaline Phosphatase 64 U/L (38-126); Aspartate Aminotransferase 27 IU/L (17-59); BUN Creatinine Ratio 30.6 (6-22); Bilirubin Total 0.4 mg/dL (0.2-1.3); Bilirubin Unconjugated 0.3 mg/dL (0.0-1.1); Blood Urea Nitrogen 57 mg/dL (9-20); Calcium 10.1 mg/dL (8.4-10.2); Carbon Dioxide 17 mmol/L (22-32); Chloride 108 mmol/L (98-107); Estimated Glomerular Filt Rate 34.8 mL/min (>60); Glucose 131 mg/dL (80-110); HEMOLYSIS < 15 (0-50); Potassium 4.8 mmol/L (3.4-5.1); Sodium 134 mmol/L (137-145); Total Protein 6.5 g/dL (6.3-8.2)
[2019-10-16 09:00] VITALS: BP 188/77; PULSE 69; RESP 17; TEMP 36.3; O2SAT 99
[2019-10-16] MEDS: CLOPIDOGREL 75 MG TABLET PO (09:15)
[2019-10-16] MEDS: ASPIRIN EC 81 MG TABLET PO (09:15)
[2019-10-16] MEDS: PANTOPRAZOLE 40 MG VIAL IV (09:15)
[2019-10-16] MEDS: atenoloL 25 MG TABLET PO (09:16)
[2019-10-16] MEDS: cilostazoL 50 MG TABLET PO ×2 (09:16→21:10)
[2019-10-16] MEDS: ISOSORBIDE MONONITRATE 20 MG TABLET 40 MG PO (09:16)
[2019-10-16] MEDS: HEPARIN 5,000 UNIT/ML VIAL 5000 UNIT SUBCUT ×2 (09:17→21:10)
--- NOTE | 2019-10-16 09:55 | PT.IIE ---
Current Diagnoses Acute kidney failure, unspecified (10/14/19) Surgical History (Last Reviewed 10/14/19 @ 18:49 by Caterina Winters MD) History of cataract removal with insertion of prosthetic lens History of cataract removal with insertion of prosthetic lens Status post cholecystectomy Status post partial mastectomy Medical History (Last Reviewed 10/14/19 @ 18:49 by Caterina Winters MD) Arthritis (Acute) Coronary artery disease (Acute) Diabetes type 2, controlled (Acute) Heart disease (Acute) Physical Therapy Inpatient Evaluation/Re-Eval M1 PT/OT-IP Prior Functional Status Start: 10/15/19 10:49 Freq: NEEDED Status: Active Protocol: Document 10/15/19 11:56 HH (Rec: 10/15/19 12:18 HH [email or web address]) Medical Review Prior Functional Status Medical History Reviewed Yes Diet/Fluid Consistency Regular,Full Liquids Communication no deficits noted. able to make needs known Mobility and Gait Pt was independent for all mobility. uses SPC[facility] 4WW [facility] Pt reports he was somewhat unsteady since then and had one fall within the past 2 weeks since he had ileostomy. Activities of Daily Living and IADL's Independent for all ADLs and IADLs without AD. However, pt was not eating for the past 2 weeks since ileostomy. Social History Household Members spouse Living Arrangements House Number of Floors (Floors) One Floor Number of Stairs To Enter/Railing? 3 ENZO to front entrance without railings 2STE to back entrance with B rails Home Environment High Toilet,Walk in Shower, Built-In Shower Seat Home Equipment Front Wheel Walker,Four Wheel Walker,Straight Cane,Grab Bars In Shower Additional Social History Comment Pt lives with his who works for [employer] in [employer]. His is active and independent who will be able to assist as needed. Pt also has children that live in [place] and willing to help if needed. Pt has a hx of HTN, DM2, CAD, PAD. He recently had a heart sx in [facility] in [place] who was hospitalized for 33 days including coma for 2 days. He stated his mobility has significantly declined since but still able to function independently. Pt also had an ileostomy 2 weeks ago at [facility] and returned home with home health after but cont to have poor appetite and generalized weakness M2 PT-IP Current Condition Start: 10/15/19 10:49 Freq: NEEDED Status: Active Protocol: Document 10/15/19 11:56 HH (Rec: 10/15/19 12:18 [email or web address]) Physical Therapy Current Condition Current Condition Evaluation Date 10/15/19 Treatment Diagnosis Acute renal failure post ileostomy, dehydration, generalized weakness Onset Date 2 weeks ago Weight Bearing Status Weight Bearing Status Full Weight Bearing M3 PT-IP Subjective Start: 10/15/19 10:49 Freq: NEEDED Status: Active Protocol: Document 10/15/19 11:56 HH (Rec: 10/15/19 12:18 [email or web address]) Subjective Physical Therapy Visit Type Type Initial Evaluation Visit Start Time 11:10 Visit Stop Time 11:36 Total Visit Minutes 26 Notes Pt has been up to bathroom with nursing without using AD Number of ENGAGEMENT ENGINEER Visits 0 Physical Therapy Visit Comments Patient Comments Im feeling better and start eating again. Patient Goals to regain his appetite and mobility. Therapy Pain Assessment Pain When Pain Assessed At Rest Pain Present Pain Present Denied Pain M4 PT-IP Mobility and Gait Start: 10/15/19 10:49 Freq: NEEDED Status: Active Protocol: Document 10/15/19 11:56 HH (Rec: 10/15/19 12:18 [email or web address]) PT-Bed Mobility Assessment Supine to Sit Supine to Sit Standby Assistance Scooting Scooting to Edge of Bed Standby Assistance PT-Transfer Assessment Sit to and From Stand Sit to and from Stand Standby Assistance,Use of Upper Extremities Equipment Transfer Assistive Device Gait Belt Orthotic/Prosthetic Devices or Brace: No Transfers Transfer Destination Bed,Chair Transfer Technique Stand Step Pivot Transfer Ability Level of Assist Standby Assistance,Use of Upper Extremities Comments Mobility Comments Pt was in bed upon PT arrival. BP at 127/64 SpO2 97% AxO4 and reported improved appetite . He agreed to mobilize with PT. Pt initially placed himself in hooklying position followed by using momentum to rock himself into long sit position. Educated pt to use log roll position for safety purpose but he stated he has been doing this for years and it does not cause any discomfort. He then stood up from EOB with UEs push off from bed SBA. He was able to amb immediately without AD with CGA. Pt walked from his room to [facility] and returned since he reported of SOB and fatigue after 250 ft. He also needed CGA towards the end d/t faitgue. Pt also presented slight trendelenburg sign on L towards the end of session but denied discomfort. He was able to return to his room and transferred himself to chair comfortably and safely. BP at 149/64 SpO2 98%. Notified nursing regarding pt 's SBA/CGA status but elevated BP. recommended pt and nursing to go for long walk with SBA/CGA . Gait Assessment Gait Gait Assistance Required: Standby Assistance,Contact Guard Assist Distance (Feet) 480 Able to Maintain Weight Bearing Status Yes During Gait Assistive Devices Assistive Device Gait Belt Orthotic/Prosthetic Devices or Brace: No Gait Deviations General Gait Pattern Antalgic,Decreased Stride Length,Decreased Feet Clearance Factors Limiting Gait Function Factors Limiting Gait Function Decreased Activity Tolerance, Decreased Strength,Respiratory Distress Comments Gait Comments see mobility comments Stair Climbing Assessment Comments Stair Climbing Comments did not assess d/t fatigue. PT-Balance Assessment Sitting Balance and Reactions Static Sitting Balance Ability Normal Dynamic Sitting Balance Ability Normal Standing Balance and Reactions Static Standing Balance Ability Normal Dynamic Standing Balance Ability Good Device Used none M5 PT-IP Objective Assessments Start: 10/15/19 10:49 Freq: NEEDED Status: Active Protocol: Document 10/15/19 11:56 HH (Rec: 10/15/19 12:18 [email or web address]) Orientation Orientation/Cognition Level of Alertness Alert Orientation Name,Age,Birthday,Month,Date, Year,Day of Week,Place, Situation Language Function Ability No Deficits Noted Safety Awareness Understands Safety Issues Memory Description No Deficits Noted Gross Range of Motion Upper Extremity ROM Assessment Bilaterally Impaired Impairments Pt had B RTC sx. only able to reach ~ 100 degrees of flexion Lower Extremity ROM Assessment Within Functional Limits Strength Upper Extremity Strength Assessment Within Functional Limits Lower Extremity Strength Assessment Within Functional Limits Coordination Assessment Gross Coordination Gross Coordination WNL Sensation Assessment Sensation Gross Sensation WNL Light Touch Intact Proprioception (Position) Intact Muscle Tone Muscle Tone WNL Yes M6 PT-IP Treatment Start: 10/15/19 10:49 Freq: NEEDED Status: Active Protocol: Document 10/15/19 11:56 HH (Rec: 10/15/19 12:18 [email or web address]) Physical Therapy Treatment Exercises Exercises Ankle Pumps,Quad Sets Education Education Provided Safety M7 PT-IP Assessment and Plan Start: 10/15/19 10:49 Freq: NEEDED Status: Active Protocol: Document 10/15/19 11:56 (Rec: 10/15/19 12:18 [email or web address]) PT Summary Assessment and Plan Potential Rehabilitation Potential Good Status of Condition at Evaluation Evolving Summary Impairments Pain,Strength,Balance,Bed Mobility,Transfers,Gait, Activity Tolerance Assessment Summary This is a low complexity evaluation for this 84 yo male readmitted to d/t acute renal failure, dehydration, anorexia and generalized muscle weakness. Pt had ileostomy 2 weeks ago and has difficulty with appetite ever since. He lost 18 lbs within 2 weeks along with significant weakness. Upon Assessment, pt appears to have better appetite and energy level. He was able to complete mobility assessment with SBA and 480 ft without AD SBA/CGA. He did get fatigue towards the end of session but his vitals remain stable. His primariy limitation is activity tolerance at this point and expect pt to return home with 's assistance as needed once he is medically stable. Pt will also benefit from outpatient therapy to imrpove his functional mobility, balance and strength. Goals Bed Mobility Goal Independent Transfer Goal Independent Gait Goal Independent Gait Distance 500 Other Goals up down 3 steps without AD or 2 steps with B rails. Days to Meet Goals 5 Frequency of Treatment Frequency Of Treatment Once a Day Treatment Plan Physical Therapy Treatment Plan Bed Mobility Training,Transfer Training,Gait Training, Therapeutic Exercise,Balance Retraining,Discharge Planning, Neuromuscular Re-ed Other Recommendations and Next Treatment check vitals Focus up down 3 steps without AD or 2 steps with B rails. gait training see if pt would like to use log roll for bed mobility Recommendations To Nursing Amount of Assist Needed Standby Assistance Discharge Recommendations PT Discharge Recommendations Home with Assistance, Outpatient PT Transportation Needs at Discharge Private Vehicle
[2019-10-16 12:00] VITALS: BP 137/63; PULSE 67; RESP 16; TEMP 36.6; O2SAT 98
--- NOTE | 2019-10-16 12:08 | PT.IPTN ---
Current Diagnoses Acute kidney failure, unspecified (10/14/19) Physical Therapy Treatment Note M2 PT-IP Current Condition Start: 10/15/19 10:49 Freq: NEEDED Status: Active Protocol: Document 10/15/19 11:56 HH (Rec: 10/15/19 12:18 HH [email or web address]) Physical Therapy Current Condition Current Condition Evaluation Date 10/15/19 Treatment Diagnosis Acute renal failure post ileostomy, dehydration, generalized weakness Onset Date 2 weeks ago Weight Bearing Status Weight Bearing Status Full Weight Bearing M3 PT-IP Subjective Start: 10/15/19 10:49 Freq: NEEDED Status: Active Protocol: Document 10/16/19 11:58 HH (Rec: 10/16/19 12:08 [id number]) Subjective Physical Therapy Visit Type Type Treatment Note Visit Start Time 11:32 Visit Stop Time 11:45 Total Visit Minutes 13 Notes pt has been ambulating with nursing staff Number of BARBER INSTRUCTOR Visits 0 Physical Therapy Visit Comments Patient Comments I dont have a good appetite today. Therapy Pain Assessment Pain When Pain Assessed At Rest Pain Present Pain Present Denied Pain M4 PT-IP Mobility and Gait Start: 10/15/19 10:49 Freq: NEEDED Status: Active Protocol: Document 10/16/19 11:58 HH (Rec: 10/16/19 12:08 [id number]) PT-Transfer Assessment Sit to and From Stand Sit to and from Stand Independent,Use of Upper Extremities Equipment Transfer Assistive Device Gait Belt Orthotic/Prosthetic Devices or Brace: No Transfers Transfer Destination Chair Transfer Technique Stand Step Pivot Transfer Ability Level of Assist Independent,Use of Upper Extremities Comments Mobility Comments Pt was in chair upon PT arrival. He stated his appetite is not that great today but agreed to mobilize with PT. BP at 136/62. He then stood up with UE pushed off from chair independently. He then walked from his room to end of [facility] without AD. Pt stated he has been having foot drop since april and doesnt know why. He ambulated with L hip hike for foot clearance but overall very steady. He then climbed 3 steps with L rail with step over pattern SBA. He then walked back to his room and sat in chair. No discomfort noted but BP elevated to 176/ 58 and took 2 mins to recover to 137/62. notified nursing staff. Gait Assessment Gait Gait Assistance Required: Independent Distance (Feet) 580 Able to Maintain Weight Bearing Status Yes During Gait Assistive Devices Assistive Device Gait Belt Orthotic/Prosthetic Devices or Brace: No Gait Deviations General Gait Pattern Antalgic,Decreased Stride Length,Decreased Feet Clearance Factors Limiting Gait Function Factors Limiting Gait Function Decreased Activity Tolerance, Decreased Strength,Respiratory Distress Comments Gait Comments see mobility comments. Pt has L foot drop so he amb with L hip hike for foot clearance since . Stair Climbing Assessment Evaluation Level of Assist On Stairs Standby Assistance Devices Stair Climbing Assistive Devices Left Railing Technique/Endurance Stair Climbing Direction Ascend and Descend Stair Climbing Technique Step Over Step Number of Steps Climbed 3 Stair Climbing Set # Repetitions (reps) 2 Comments Stair Climbing Comments steady and no LOB. PT-Balance Assessment Sitting Balance and Reactions Static Sitting Balance Ability Normal Dynamic Sitting Balance Ability Normal Standing Balance and Reactions Static Standing Balance Ability Normal Dynamic Standing Balance Ability Normal Device Used none M5 PT-IP Objective Assessments Start: 10/15/19 10:49 Freq: NEEDED Status: Active Protocol: Document 10/15/19 11:56 (Rec: 10/15/19 12:18 [email or web address]) Orientation Orientation/Cognition Level of Alertness Alert Orientation Name,Age,Birthday,Month,Date, Year,Day of Week,Place, Situation Language Function Ability No Deficits Noted Safety Awareness Understands Safety Issues Memory Description No Deficits Noted Gross Range of Motion Upper Extremity ROM Assessment Bilaterally Impaired Impairments Pt had B RTC sx. only able to reach ~ 100 degrees of flexion Lower Extremity ROM Assessment Within Functional Limits Strength Upper Extremity Strength Assessment Within Functional Limits Lower Extremity Strength Assessment Within Functional Limits Coordination Assessment Gross Coordination Gross Coordination WNL Sensation Assessment Sensation Gross Sensation WNL Light Touch Intact Proprioception (Position) Intact Muscle Tone Muscle Tone WNL Yes M6 PT-IP Treatment Start: 10/15/19 10:49 Freq: NEEDED Status: Active Protocol: Document 10/15/19 11:56 (Rec: 10/15/19 12:18 [email or web address]) Physical Therapy Treatment Exercises Exercises Ankle Pumps,Quad Sets Education Education Provided Safety M7 PT-IP Assessment and Plan Start: 10/15/19 10:49 Freq: NEEDED Status: Active Protocol: Document 10/16/19 11:58 (Rec: 10/16/19 12:08 [id number]) PT Summary Assessment and Plan Potential Rehabilitation Potential Excellent Status of Condition at Evaluation Stable Summary Impairments Pain,Strength,Balance, Transfers,Gait,Activity Tolerance Progress Towards Goals Safe For Discharge Assessment Summary Pt shows improved amb distance and completed stair climbing without AD safely. Pt has reached all his rehab goals and She will be safe to d/c home once he is medically stably. Frequency of Treatment Frequency Of Treatment Discharge Recommendations To Nursing Amount of Assist Needed Independent Discharge Recommendations PT Discharge Recommendations Home with Assistance, Outpatient PT Other Discharge Recommendations outpatient PT for his foot drop, general conditioning and strengthening. Transportation Needs at Discharge Private Vehicle
--- NOTE | 2019-10-16 13:11 | P.PN_ITS ---
Subjective Subjective Date Patient Seen: 10/16/19 Time Patient Seen: 13:12 Interval history: Tyler English is an 84 year old male with HTN, DM, CAD, PVD recent ileostomy for sigmoid stricture found on colonoscopy in [place] approx 2 weeks ago. Ever since his surgery his appetite has been poor and he has reportedly lost about 18 lb since surgery. He has really been unable to eat or drink much at all, but has tolerated his medications. He feels slightly better this morning and was tolerating his diet today. He continues to have good output from his ostomy with gas and stool. His creatinine has improved to 1.86 today, however this is still almost double his usual baseline. Have held fluids today and will insure that patient can hydrate well enough on his own to avoid worsening kidney function. Exam Vital Signs (past 8 hours): - 10/16/19 09:00 10/16/19 12:00 Temperature 97.4 F L 97.8 F Pulse Rate 69 67 Respiratory Rate 17 16 Blood Pressure 188/77 H 137/63 Pulse Oximetry 99 98 Oxygen Delivery Method Room Air Oxygen Flow Rate 0 Narrative Exam Narrative: GENERAL APPEARANCE: Elderly male, slightly pale, in no acute distress SKIN: Inspection of the skin reveals no rashes, ulcerations or petechiae. HEENT: Normocephalic atraumatic, extraocular muscles are intact, oropharynx is clear and mucous membranes are moist, neck is supple without adenopathy NECK: Supple and symmetric. There was no thyroid enlargement, and no tenderness, or masses were felt. CHEST: Normal AP diameter and normal contour without any kyphoscoliosis. LUNGS: Auscultation of the lungs revealed no wheezes, rhonchi, or rales. CARDIOVASCULAR: There was a regular rate and rhythm without any murmurs, gallops, rubs. Peripheral pulses were 2+ and symmetric. ABDOMEN: Soft and appropriately tender over midline abdominal incision. With normal bowel sounds. No ascites was noted. Midline abdominal surgeon without significant erythema or induration, if is well-healed. MUSCULOSKELETAL: There was no tenderness or effusions noted. Muscle strength and tone were normal. EXTREMITIES: No cyanosis, clubbing or edema. NEUROLOGIC: No focal deficits, globally weak. No deficits to light touch bilateral lower extremities. Objective Labs Result Diagrams: 10/16/19 04:51 10/16/19 04:51 Labs: Laboratory Results - last 24 hr 10/15/19 10/16/19 10/16/19 14:00 04:51 04:51 WBC 6.0 RBC 3.05 L Hgb 10.2 L Hct 29.8 L MCV 97.8 MCH 33.6 MCHC 34.4 RDW 14.4 Plt Count 162 Neut % (Auto) 55.6 D Lymph % (Auto) 31.1 [place] % (Auto) 7.8 Eos % (Auto) 5.0 H Baso % (Auto) 0.5 Neut # (Auto) 3300 Lymph # (Auto) 1900 [place] # (Auto) 500 Eos # (Auto) 300 Baso # (Auto) 0 Sodium 133 L 134 L Potassium 4.9 4.8 Chloride 106 108 H Carbon Dioxide 17 L 17 L BUN 61 H 57 H Creatinine 2.08 H 1.86 H Estimated GFR 30.6 L 34.8 L BUN/Creatinine Ratio 29.3 H 30.6 H Glucose 163 H 131 H Calcium 10.0 10.1 Phosphorus 4.0 H Magnesium 2.0 Total Bilirubin 0.4 Conjugated Bilirubin 0.0 Unconjugated Bilirubin 0.3 AST 27 Alkaline Phosphatase 64 Total Protein 6.5 Albumin 3.5 Globulin 3.0 Albumin/Globulin Ratio 1.2 Assessment & Plan Assessment & Plan narrative: 1. 84-year-old male 2 weeks status post ileostomy/sigmoid resection for sigmoid stricture admitted to the hospital for dehydration, anorexia, generalized malaise. Likely secondary to dehydration -patient reports inability to eat since his surgery, improving over the course of this admission -KUB in the emergency department reveals no evidence of obstruction -abdominal pain appears to be consistent with postoperative surgical pain. Improved diet today and no evidence of obstruction, will hold on CT imaging. -will ask dietary to consult -consider Megace as an appetite stimulant as well -consider depression for continued decreased appetite. 2. Severe protein calorie malnutrition, present on admission -patient with an 18 lb weight loss over the past 2 weeks -patient with evidence of marked dehydration manifested as hypotension -dietary consult as above 3. Acute renal failure, present on admission improving. -suspect related to dehydration and hypotension, currently improving. -currently holding Arb -have stopped IV fluids, will insure that patient can adequately hydrate hims elf throughout today and will repeat BMP tomorrow. If creatinine continues to downtrend he should be stable for discharge home. 4. hypercalcemia, acute, present on admission - may be related to acute renal failure - repeat BMP showed normal calcium. Resolved with IVF and will continue to monitor. Consider PTH level if recurs. 5. Hyponatremia, acute, present on admisison - mild with admission Na of 133, continue IVF as noted above. 6. Hypertension, chronic -continue beta-rasheeda 7. Peripheral vascular disease, chronic -continue aspirin, Plavix,l cilostazol 8. Hyperlipidemia, chronic -continue statin 9 coronary artery disease, chronic -continue Isordil, aspirin, Plavix, a tunnel 10. GERD, chronic -will continue proton, IV as the patient is nauseated. Consider changing to PO tomorrow. 11. Type 2 diabetes, chronic. Will hold glipizide as the patient is not eating blood sugars are low, and now with worsening renal failure will hold his oral hypoglycemic agent Will check blood sugar, consider sliding scale if sugars elevate DVT: heparin 5000 units b.i.d., CODE: patient's is his DPOA who is at the bedside, patient is DNR will note that his record accordingly Patient is admitted as an inpatient given his renal failure, recent surgery, multiple comorbidities. Anticipate discharge potentially tomorrow if his kidney function continues to improve without IV fluids.
--- NOTE | 2019-10-16 13:28 | PC.NURSE ---
PT DOING WELL TAKING MORE PO INTAKE- WORKED WITH PT AND D/C'D FROM PT SERVICES DUE TO LACK OF NEED, HE IS STABLE ON HIS FEET AND MOSTLY INDEPENDENT IN ROOM- TAKING CARE OF HIS OWN OSTOMY. HE DOES REPORT FEELING TIRED DUE TO LACK OF ROUTINE SINCE OSTOMY PLACED- ENCOURAGED ACTIVITY AND UP TO CHAIR RATHER IN BED MOST OF DAY HIS WISHES HAVE BEEN HERE AT HOSPITAL- UPSET THAT HE MAY BE DISCHARGED TOMORROW STATING I CAN NOT TAKE CARE OF HIM AT HOME AND WE WILL BE CALLING 911 REFERRED TO CASE LINA AND KURT SPEAKING WITH PT AND AT PRESENT
[2019-10-16 14:30] LABS: Alanine Aminotransferase 36 IU/L (<50)
--- NOTE | 2019-10-16 14:45 | CM.DPC ---
Addendum entered by Santa Shanks R.N. 10/17/19 12:30: EMR Reviewed: Patients Brian called CM and asked about if patient can be D/C with antacid medication and was hoping to get patient put on Antidepressants as well. CM/RN will talk with Dr. Sharma about it but CM/RN did explain that antidepressants are usually managed by patients PCP's that way they are closely monitored for effectiveness and S&S of complications. Patients stated understanding Cm/RN spoke with Dr. Sharma and he refilled patients home Rx for Protanazol and sent it to [facility] for them to milk pickup driver at D/C. Dr. Sharma did not order antidepressants and recommend a follow up appt with PCP for that. CM Met with Patient and brian at the bedside and explained about RX's patient and stated understanding and plan on setting up hospital follow up with Dr. Stewart for next week. CM/RN faxed [facility] D/C summary for them to resume services. Santa Shanks RN Original Note: DCP continued: EMR reviewed: Nurse Gladis came in and asked CM to speak with patients Brian. Patients had expressed concerns about possible D/C home tomorrow and stated that she was not comfortable with him going home and doesn't feel she is able to care for him if he has any more heart issues she will just call 911. CM explained that there was no D/C orders place yet but that if patients lab work continues to improve alone with patients physical condition continues to improve that he will be ready for D/C. CM/RN Asked patients what she is concerned about with bringing patient home. she stated that if he has more chest pain and heart issues she doesn't feel confident to care for that. Cm/Rn explained that if patient has intense chest pain and is having issues she should call 911 to be safe that patient is ok. but that when we d/c him from here he will be medically stable to go home. CM/RN spoke with patients about HH services. Brian states they have nursing services for iliostomy care but no PT or OT. CM/RN Spoke with Dr. Sharma and he agreed patient would benefit from for PT and OT F2F signed and will fax to [facility]. CM/RN will call Bernadette let them know he will resume HH services with them at d/C Patient and patients Brian expressed concerns for caring for the iliostomy and would like some help with changing it and caring for it when it is irritated like she stated it is currently. CM/RN spoke with the patients Nurse and she agreed to do some patient teaching after patients show. Patients stated she felt better about d/C options for tomorrow. CM/RN updated patient about HH services including OP an PT at D/C . Patient stated understanding. Santa Shanks RN
[2019-10-16 15:20] VITALS: BP 112/57; PULSE 71; RESP 19; TEMP 36.4; O2SAT 96
[2019-10-16 19:32] VITALS: BP 124/57; PULSE 78; RESP 16; TEMP 36.7; O2SAT 96
[2019-10-16] MEDS: ATORVASTATIN 20 MG TABLET PO (21:10)
[2019-10-17] VITALS: BP 117/57; PULSE 75; RESP 18; TEMP 36.6; O2SAT 97
[2019-10-17 04:00] VITALS: BP 125/65; PULSE 76; RESP 18; TEMP 36.6; O2SAT 99
--- NOTE | 2019-10-17 06:37 | PC.NURSE ---
Pt did well overnight. Ileostomy with good output, pt independent with use. Voiding well. ind of ADLS denies any nausea
[2019-10-17 07:18] LABS: Add Manual Diff / Slide Review NO; Basophils Absolute Auto 0 /uL (0-100); Basophils Percent Auto 0.5 % (0-2); Eosinophils Absolute Auto 300 /uL (0-450); Eosinophils Percent Auto 4.7 % (2-4); Hematocrit 31.1 % (41-53); Hemoglobin 10.8 g/dL (13.5-17.5); Lymphocytes Absolute Auto 1800 /uL (1100-4500); Lymphocytes Percent Auto 29.9 % (25-40); Mean Corpuscular HGB Conc 34.7 % (30-36); Mean Corpuscular Hemoglobin 33.5 PG (26-34); Mean Corpuscular Volume 96.5 fL (80-100); Monocytes Absolute Auto 500 /uL (0-900); Monocytes Percent Auto 8.1 % (3-14); Neutrophils Absolute Auto 3400 /uL (1500-7000); Neutrophils Percent Auto 56.8 % (50-75); Platelet Count 170 X10^3/uL (150-400); Red Blood Cell Count 3.23 X10^6/uL (4.5-5.9); Red Cell Distribution Width 14.2 % (11.6-14.8); White Blood Cell Count 5.9 X10^3/uL (4.5-11.0)
[2019-10-17 07:29] LABS: BUN Creatinine Ratio 30.3 (6-22); Blood Urea Nitrogen 53 mg/dL (9-20); Calcium 10.5 mg/dL (8.4-10.2); Carbon Dioxide 15 mmol/L (22-32); Chloride 109 mmol/L (98-107); Estimated Glomerular Filt Rate 37.3 mL/min (>60); Glucose 123 mg/dL (80-110); HEMOLYSIS < 15 (0-50); Phosphorous 3.9 mg/dL (2.3-3.7); Potassium 4.6 mmol/L (3.4-5.1); Sodium 134 mmol/L (137-145)
[2019-10-17 08:00] VITALS: BP 137/65; PULSE 61; RESP 19; TEMP 36.4; O2SAT 99
--- NOTE | 2019-10-17 09:27 | DIET.PN ---
Dietary Progress Note RD f/u pre-d/c for PCM: pt wt stable since admission, gaining strength. Pt drinking Ensure Enlives, tolerating them and enjoys them. Pt's received coupons and will purchase same ONS for home use.
[2019-10-17] MEDS: ISOSORBIDE MONONITRATE 20 MG TABLET 40 MG PO (09:28)
[2019-10-17] MEDS: ASPIRIN EC 81 MG TABLET PO (09:28)
[2019-10-17] MEDS: atenoloL 25 MG TABLET PO (09:28)
[2019-10-17] MEDS: HEPARIN 5,000 UNIT/ML VIAL 5000 UNIT SUBCUT (09:28)
[2019-10-17] MEDS: cilostazoL 50 MG TABLET PO (09:28)
[2019-10-17] MEDS: CLOPIDOGREL 75 MG TABLET PO (09:28)
--- NOTE | 2019-10-17 09:38 | P.DS_ITS ---
History of Present Illness History of Present Illness Date Patient Seen: 10/17/19 Time Patient Seen: 09:38 Chief complaint: ILEOSTOMY PATIENT NOT ABLE TO EAT Narrative: As per Dr. 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 The patient had his surgery roughly 2 weeks ago. Was in the hospital for about 1 week and then discharged home. According to his his appetite was poor at the hospital. His reports he has lost 18 lb over the past 2 weeks. Since he has been home he has had very poor appetite. He has been unable to eat or drink. He has tolerated his medications. He has been lightheaded and dizzy. He also reports feeling quite weak. Patient describes having heartburn and indigestion. He had 1 episode of vomiting today. He has had no hematemesis melena or bright red blood per rectum. He reports that his ostomy is working well and he has excellent stool from his ostomy and gas. He reports some abdominal pain around the surgical site. It is a dull at times sharp pain that has persisted since his surgery. Pain is unchanged and has not gotten worse. He denies any fever chills or cough. He has no dysuria hematuria or pyuria. He was seen and evaluated in the emergency room and found to be markedly dehydrated. Patient also was found to be in acute renal failure with an elevated BUN and creatinine. He is admitted to the hospital for treatment evaluation of anorexia, volume depletion, acute renal failure, dehydration, severe protein calorie malnutrition. Discharge Providers Provider Date of admission: 10/14/19 17:21 Discharge Date: 10/17/19 Primary care physician: Luis Carlos Stewart MD Consults: 10/14/19 18:20 Consult to Dietitian, Adult Routine Comment: Reason For Exam: weight loss >20lbs in 4 weeks 10/14/19 18:40 Consult to Occupational Therapy Evaluate & Treat Comment: Physician Instructions: Evaluate and treat Consult to Physical Therapy Evaluate & Treat Comment: Physician Instructions: Evaluate and Treat Discharge provider: Kleber Burr DO Summary Hospital Course Discharge Diagnosis: Please see hospital course by problem list noted below. 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 Ever since his surgery his appetite has been poor and he has reportedly lost about 18 lb since surgery. He has really been unable to eat or drink much at all, but has tolerated his medications. He was rehydrated and had improved oral intake while admitted. 1. Dehydration, acute, present on admission, resolved. -patient reported the inability to eat since his surgery, improved over the course of this admission. Unclear as to the exact etiology of his decreased PO intake, consider depression in the setting of ostomy, transient viral illness. Patient was seen by executive administrative asst and was started on supplements. He was given IV fluids until adequately rehydrated. He may have been suffering from some GERD as well as he seemed to improve with PPI. -KUB in the emergency department revealed no evidence of obstruction -appreciated dietary consultation. 2. Severe acute protein calorie malnutrition, present on admission -patient with an 18 lb weight loss over the past 2 weeks with nausea, vomiting. -patient with evidence of marked dehydration manifested as hypotension -dietary consult appreciated and patient was provided with supplementation after improved PO intake. 3. Acute renal failure, present on admission improving. -suspect related to dehydration and hypotension. -currently holding Arb -patient improved with fluid hydration. This was stopped the day before discharge to insure that patient could adequately hydrate himself throughout the day. Once his creatinine improved without supplemental fluids he was discharged home. 4. hypercalcemia, acute, present on admission - likely related to acute renal failure - repeat BMP showed normal calcium. Resolved with IVF and will continue to moniter. Repeat labs with PMD for recheck. Consider workup if again elevated, he is not on any medications known to increase calcium level. 5. Hyponatremia, acute, present on admisison - mild with admission Na of 133, improved with IV hydration as noted above. 6. Hypertension, chronic -continue beta-rasheeda 7. Peripheral vascular disease, chronic -continue aspirin, Plavix, cilostazol 8. Hyperlipidemia, chronic -continue statin 9 coronary artery disease, chronic -continue Isordil, aspirin, Plavix, atenlol 10. GERD, chronic -will continue proton, IV as the patient is nauseated. Consider changing to PO tomorrow. 11. Type 2 diabetes, chronic. Will hold glipizide as the patient is not eating blood sugars are low, and now with worsening renal failure will hold his oral hypoglycemic agent PMD follow up as an outpatient. Exam Vital Signs (past 8 hours): - 10/17/19 04:00 10/17/19 08:00 Temperature 97.9 F 97.5 F L Pulse Rate 76 61 Respiratory Rate 18 19 Blood Pressure 125/65 137/65 Pulse Oximetry 99 99 Oxygen Delivery Method Room Air Oxygen Flow Rate 0 Narrative Exam Narrative: GENERAL APPEARANCE: Elderly male, in no acute distress, appears well. SKIN: Inspection of the skin reveals no rashes, ulcerations or petechiae. HEENT: Normocephalic atraumatic, extraocular muscles are intact, oropharynx is clear and mucous membranes are moist, neck is supple without adenopathy NECK: Supple and symmetric. There was no thyroid enlargement, and no tenderness, or masses were felt. CHEST: Normal AP diameter and normal contour without any kyphoscoliosis. LUNGS: Auscultation of the lungs revealed no wheezes, rhonchi, or rales. CARDIOVASCULAR: There was a regular rate and rhythm without any murmurs, gallops, rubs. Peripheral pulses were 2+ and symmetric. ABDOMEN: Soft and appropriately minimally tender over midline abdominal incision. With normal bowel sounds. No ascites was noted. Midline abdominal surgeon without significant erythema or induration, well-healed. Stool and gas in ostomy bag. Ostomy mildly erythematous with lots of green liquid stool. MUSCULOSKELETAL: There was no tenderness or effusions noted. Muscle strength and tone were normal. EXTREMITIES: No cyanosis, clubbing or edema. NEUROLOGIC: No focal deficits, globally weak. No deficits to light touch bilateral lower extremities. Objective Labs Result Diagrams: 10/17/19 07:00 10/17/19 07:00 Labs: Laboratory Results - last 24 hr 10/16/19 10/17/19 10/17/19 04:51 07:00 07:00 WBC 5.9 RBC 3.23 L Hgb 10.8 L Hct 31.1 L MCV 96.5 MCH 33.5 MCHC 34.7 RDW 14.2 Plt Count 170 Neut % (Auto) 56.8 Lymph % (Auto) 29.9 Mckenzie % (Auto) 8.1 Eos % (Auto) 4.7 H Baso % (Auto) 0.5 Neut # (Auto) 3400 Lymph # (Auto) 1800 Mckenzie # (Auto) 500 Eos # (Auto) 300 Baso # (Auto) 0 Sodium 134 L Potassium 4.6 Chloride 109 H Carbon Dioxide 15 L BUN 53 H Creatinine 1.75 H Estimated GFR 37.3 L BUN/Creatinine Ratio 30.3 H Glucose 123 H Calcium 10.5 H Phosphorus 3.9 H Magnesium 2.0 ALT 36 Discharge Plan Discharge Plan Patient Disposition: Home Health Service Discharge comment: You were admitted to the hospital with dehydration and poor PO intake which caused a kidney injury. You improved with IV fluids and were eating and drinking well on the day of discharge. Please follow up with your surgeon as previously scheduled. I recommend you continue to not take glipizide for diabetes given your kidney injury and normal glucose. Please schedule a follow up with your primary care provider to recheck your kidney function and calcium levels. Discharge orders & Medications Prescriptions: New famotidine [Pepcid] 20 mg tablet 20 mg PO DAILY 30 Days Qty: 30 RF: 0 Continued isosorbide mononitrate 30 MG tablet extended release 24 hr 40 mg PO DAILY Qty: 0 RF: 0 clopidogrel [Plavix] 75 MG tablet 75 mg PO QDAY Qty: 0 RF: 0 methocarbamol 750 mg tablet 1,500 mg PO TID RF: 0 aspirin [Adult Aspirin Regimen] 81 mg Tablet,Delayed Release (Dr/Ec) 81 mg PO DAILY RF: 0 atorvastatin 20 mg tablet 20 mg PO DAILY RF: 0 cilostazol 50 mg tablet 50 mg PO BID RF: 0 mirtazapine 15 mg Tablet 7.5 mg PO BEDTIME RF: 0 atenolol 25 mg tablet 25 mg PO DAILY RF: 0 valsartan [Diovan] 80 mg tablet 80 mg PO DAILY RF: 0 cholecalciferol (vitamin D3) 1,000 unit capsule 1,000 unit PO DAILY RF: 0 Discontinued pantoprazole 40 mg Tablet,Delayed Release (Dr/Ec) 40 mg PO DAILY RF: 0 glipizide 5 mg tablet 5 mg PO BID RF: 0 Follow up/Referrals: Luis Carlos Stewart MD [Primary Care Provider] - (Please call to make follow up appointment) Diet/Activity/Treatments Diet comment: As tolerated Activity: As tolerated Skin/Wound/Dressing Care Other wound treatment: Continue ostomy care. Visit Report/Discharge Packet Instructions: DI for Dehydration -- Adult, Acute Kidney Injury, How to Prevent Falls Visit Report Forms: Patient Portal/API, Stroke Signs & Symptoms Discharge Data Primary Care Provider: Luis Carlos Stewart V Discharges patient from system. Discharge Date/Time: 10/17/19 13:34
--- NOTE | 2019-10-17 13:46 | PC.NURSE ---
Day Shift- Discharge summary packet reviewed with pt and his at bedside. Questions answered. Pt's stated pt cannot have ER/EC medication per his ostomy surgeon. Spoke with Dr. Burr at [address] Burr will send new prescription. Pt takes all his medication as immediate release pills or chewables. Pt aware to make follow up appointment at Dr. Stewart's office regarding blood glucose management and lab draw follow up. States has all belongings. No further voiced concerns. Discharge teaching from 1300 to 1334 due to multiple questions regarding food and fluid intake, ostomy output, checking blood glucose levels at home. Pt left unit at 1334 in no distress via wheelchair with CREATIVE STRATEGIST escort. Pt's present to drive pt home.
--- NOTE | 2019-10-21 09:55 | CM.DPC ---
DCP cont: Faxed discharge summary to [facility] at fax # [phone]. Fax confirmation scanned in. Jacquelyn Serna, Care Business Architect
== END 2019-10-17 13:34 | disposition home health service (06) | DRG 682 ==
LOC: ED 17:15 → ICU 10-15 06:59 → AC 10-17 09:36 → ICU 10-24 08:15
PROVIDERS: Internal Medicine; Admitting Provider Internal Medicine; Emergency Provider Emergency Medicine; Family Provider Internal Medicine; PCP Internal Medicine; Referring Provider Emergency Medicine; Visit Provider Internal Medicine
DX: N17.9 Acute kidney failure, unspecified (principal); R11.2 Nausea with vomiting, unspecified; E43 Unspecified severe protein-calorie malnutrition; E87.1 Hypo-osmolality and hyponatremia; E86.0 Dehydration; Z68.24 Body mass index [BMI] 24.0-24.9, adult; I95.9 Hypotension, unspecified; E83.52 Hypercalcemia; Z93.2 Ileostomy status; I10 Essential (primary) hypertension; I25.10 Atherosclerotic heart disease of native coronary artery without angina pectoris; E11.51 Type 2 diabetes mellitus with diabetic peripheral angiopathy without gangrene; Z79.84 Long term (current) use of oral hypoglycemic drugs; E78.5 Hyperlipidemia, unspecified; K21.9 Gastro-esophageal reflux disease without esophagitis
CPT/HCPCS: 36415; 74022; 80048; 80053; 80076; 82550; 82962; 83605; 83690; 83735; 84100; 84134; 84443; 84484; 85025; 85610; 85730; 87797; 93005; 93010; 96361; 96374; 97116; 97161; 99284; G0378; C9113; J1644

== ENCOUNTER → 2019-12-10 16:27 | Outpatient (ROUT) | payer OTHER, MEDICARE, SELFPAY ==
[2019-10-14 18:14] VITALS: BMI 24.2
[2019-12-10 17:10] LABS: Add Manual Diff / Slide Review NO; Basophils Absolute Auto 0 /uL (0-100); Basophils Percent Auto 0.4 % (0-2); Eosinophils Absolute Auto 200 /uL (0-450); Eosinophils Percent Auto 2.3 % (2-4); Hematocrit 29.6 % (41-53); Hemoglobin 10.1 g/dL (13.5-17.5); Lymphocytes Absolute Auto 1000 /uL (1100-4500); Lymphocytes Percent Auto 13.9 % (25-40); Mean Corpuscular HGB Conc 34.1 % (30-36); Mean Corpuscular Hemoglobin 33.7 PG (26-34); Mean Corpuscular Volume 98.7 fL (80-100); Monocytes Absolute Auto 600 /uL (0-900); Monocytes Percent Auto 7.4 % (3-14); Neutrophils Absolute Auto 5700 /uL (1500-7000); Platelet Count 267 X10^3/uL (150-400); Red Cell Distribution Width 15.7 % (11.6-14.8); White Blood Cell Count 7.5 X10^3/uL (4.5-11.0)
[2019-12-10 18:06] LABS: Alanine Aminotransferase 36 IU/L (<50); Albumin 3.5 g/dL (3.5-5.0); Albumin Globulin Ratio 1.1 (1.0-2.8); Alkaline Phosphatase 100 U/L (38-126); Aspartate Aminotransferase 29 IU/L (17-59); BUN Creatinine Ratio 18.2 (6-22); Bilirubin Total 0.3 mg/dL (0.2-1.3); Blood Urea Nitrogen 37 mg/dL (9-20); Calcium 9.5 mg/dL (8.4-10.2); Carbon Dioxide 21 mmol/L (22-32); Chloride 102 mmol/L (98-107); Estimated Glomerular Filt Rate 31.4 mL/min (>60); Globulin 3.1 g/dL (1.7-4.1); Glucose 147 mg/dL (80-110); HEMOLYSIS < 15 (0-50); Potassium 4.6 mmol/L (3.4-5.1); Sodium 133 mmol/L (137-145); Total Protein 6.6 g/dL (6.3-8.2)
== END ==
PROVIDERS: Family Provider Internal Medicine; PCP Internal Medicine; Visit Provider Family Medicine
DX: N18.9 Chronic kidney disease, unspecified (principal); E46 Unspecified protein-calorie malnutrition
CPT/HCPCS: 80053; 85025

== ENCOUNTER → 2020-02-20 14:31 | Outpatient (ROUT) | payer MEDICARE, SELFPAY ==
[2020-01-15 15:40] VITALS: BMI 24.2
[2020-02-20 14:45] LABS: Add Manual Diff / Slide Review NO; Basophils Absolute Auto 100 /uL (0-100); Basophils Percent Auto 0.7 % (0-2); Eosinophils Absolute Auto 300 /uL (0-450); Eosinophils Percent Auto 3.4 % (2-4); Hematocrit 36.1 % (41-53); Hemoglobin 11.8 g/dL (13.5-17.5); Lymphocytes Absolute Auto 1400 /uL (1100-4500); Lymphocytes Percent Auto 17.3 % (25-40); Mean Corpuscular HGB Conc 32.8 % (30-36); Mean Corpuscular Hemoglobin 33.8 PG (26-34); Mean Corpuscular Volume 103.2 fL (80-100); Monocytes Absolute Auto 600 /uL (0-900); Monocytes Percent Auto 7.8 % (3-14); Neutrophils Absolute Auto 5800 /uL (1500-7000); Neutrophils Percent Auto 70.8 % (50-75); Platelet Count 236 X10^3/uL (150-400); Red Cell Distribution Width 15.7 % (11.6-14.8); White Blood Cell Count 8.1 X10^3/uL (4.5-11.0)
[2020-02-20 14:56] LABS: Hemoglobin A1C% w Est Avg Glu 7.7 % (4.0-6.0)
[2020-02-20 15:04] LABS: Alanine Aminotransferase 21 IU/L (<50); Albumin 4.3 g/dL (3.5-5.0); Albumin Globulin Ratio 1.1 (1.0-2.8); Alkaline Phosphatase 92 U/L (38-126); Aspartate Aminotransferase 28 IU/L (17-59); BUN Creatinine Ratio 20.6 (6-22); Bilirubin Total 0.5 mg/dL (0.2-1.3); Blood Urea Nitrogen 39 mg/dL (9-20); Carbon Dioxide 26 mmol/L (22-32); Chloride 102 mmol/L (98-107); Cholesterol 196 mg/dL (140-199); Estimated Glomerular Filt Rate 34.1 mL/min (>60); Globulin 3.8 g/dL (1.7-4.1); Glucose 150 mg/dL (80-110); HDL Cholesterol 30 mg/dL (40-60); HEMOLYSIS < 15 (0-50); LDL Cholesterol Calculated 127 mg/dL (<100); Phosphorous 4.2 mg/dL (2.3-3.7); Potassium 4.7 mmol/L (3.4-5.1); Sodium 136 mmol/L (137-145); Total Protein 8.1 g/dL (6.3-8.2); Triglycerides 193 mg/dL (35-150)
[2020-02-20 15:30] LABS: TSH w/ Reflex to FT4 4.72 uIU/mL (0.47-4.68)
[2020-02-20 15:55] LABS: Free T4, Direct Thyroxine 0.95 ng/dL (0.78-2.19)
[2020-02-21 10:04] LABS: Parathyroid Hormone Int 21 pg/mL (15-65)
== END ==
PROVIDERS: Family Provider Internal Medicine; PCP Internal Medicine; Visit Provider Internal Medicine
DX: E11.59 Type 2 diabetes mellitus with other circulatory complications (principal); N18.30 Chronic kidney disease, stage 3 unspecified
CPT/HCPCS: 80053; 80061; 83036; 83970; 84100; 84439; 84443; 85025

== ENCOUNTER → 2020-03-09 19:48 | Outpatient (ROUT) | payer MEDICARE, SELFPAY ==
[2020-01-15 15:40] VITALS: BMI 24.2
[2020-03-09 20:03] LABS: Add Manual Diff / Slide Review NO; Basophils Absolute Auto 0 /uL (0-100); Basophils Percent Auto 0.4 % (0-2); Eosinophils Absolute Auto 100 /uL (0-450); Hemoglobin 13.2 g/dL (13.5-17.5); Lymphocytes Absolute Auto 1300 /uL (1100-4500); Lymphocytes Percent Auto 13.7 % (25-40); Mean Corpuscular HGB Conc 33.7 % (30-36); Mean Corpuscular Hemoglobin 34.2 PG (26-34); Mean Corpuscular Volume 101.4 fL (80-100); Monocytes Absolute Auto 500 /uL (0-900); Monocytes Percent Auto 5.8 % (3-14); Neutrophils Absolute Auto 7400 /uL (1500-7000); Neutrophils Percent Auto 79.1 % (50-75); Platelet Count 253 X10^3/uL (150-400); Red Blood Cell Count 3.85 X10^6/uL (4.5-5.9); Red Cell Distribution Width 14.7 % (11.6-14.8); White Blood Cell Count 9.4 X10^3/uL (4.5-11.0)
[2020-03-09 20:15] LABS: Alanine Aminotransferase 36 IU/L (<50); Albumin 4.5 g/dL (3.5-5.0); Albumin Globulin Ratio 1.1 (1.0-2.8); Alkaline Phosphatase 100 U/L (38-126); Aspartate Aminotransferase 36 IU/L (17-59); BUN Creatinine Ratio 20.7 (6-22); Bilirubin Total 0.6 mg/dL (0.2-1.3); Blood Urea Nitrogen 50 mg/dL (9-20); Calcium 10.5 mg/dL (8.4-10.2); Carbon Dioxide 21 mmol/L (22-32); Chloride 101 mmol/L (98-107); Estimated Glomerular Filt Rate 25.8 mL/min (>60); Globulin 4.2 g/dL (1.7-4.1); Glucose 163 mg/dL (80-110); HEMOLYSIS < 15 (0-50); Potassium 4.6 mmol/L (3.4-5.1); Sodium 134 mmol/L (137-145); Total Protein 8.7 g/dL (6.3-8.2)
== END ==
PROVIDERS: Family Provider Internal Medicine; PCP Internal Medicine; Visit Provider Internal Medicine
DX: E86.0 Dehydration (principal); K21.00 Gastro-esophageal reflux disease with esophagitis, without bleeding
CPT/HCPCS: 80053; 85025

== ENCOUNTER → 2020-03-17 14:53 | Outpatient (ROUT) | payer MEDICARE, SELFPAY ==
[2020-01-15 15:40] VITALS: BMI 24.2
[2020-03-17 15:26] LABS: BUN Creatinine Ratio 16.7 (6-22); Blood Urea Nitrogen 46 mg/dL (9-20); Calcium 9.7 mg/dL (8.4-10.2); Carbon Dioxide 18 mmol/L (22-32); Chloride 104 mmol/L (98-107); Estimated Glomerular Filt Rate 22.2 mL/min (>60); Glucose 174 mg/dL (80-110); HEMOLYSIS < 15 (0-50); Potassium 4.3 mmol/L (3.4-5.1); Sodium 132 mmol/L (137-145)
== END ==
PROVIDERS: Family Provider Internal Medicine; PCP Internal Medicine; Visit Provider Internal Medicine
DX: N18.30 Chronic kidney disease, stage 3 unspecified (principal)
CPT/HCPCS: 80048

== ENCOUNTER → 2020-03-18 15:00 | Oncology outpatient (ONC) | payer MEDICARE, SELFPAY ==
[2020-01-15 15:40] VITALS: BMI 24.2
--- NOTE | 2020-03-18 14:59 | ONC.SCHED ---
Per [facility] no auth requ'd. confirmed on [employer] website.
[2020-03-18] MEDS: SODIUM CHLORIDE 0.9% 1,000 ML 250 ML IV (15:00)
[2020-03-18 15:44] VITALS: BP 158/79; PULSE 77; RESP 18; TEMP 36.3; O2SAT 92
--- NOTE | 2020-03-18 16:38 | PC.NURSE ---
PATIENT FALL & TRANSFER TO ACU 1630: While walking to the ACU with this RN, patient turned to speak and stumbled and fell over his feet. The patient denied hitting his head, stating that he fell on his left arm/shoulder. Pt obtained a small skin tear to left hand. ED nurse (MADINA Mitchell) assisted in getting Pt into wheelchair and did brief physical assessment. Pt did not wish to be admitted to the ED, instead wanted to continue to ACU for remainder of infusion. Pt taken in wheelchair to room 201. Fluids infusing at 250 ml/hr per order. MADNIA Gutierrez informed of fall and took vital signs. MADINA Lara informed Pt's of fall via phone.
[2020-03-18 18:44] VITALS: BP 168/73; PULSE 70; RESP 20; TEMP 36.4; O2SAT 94
--- NOTE | 2020-03-18 18:56 | PC.NURSE ---
Vital Signs taken before IV discontinued. Pt is complaining of sore left shoulder, but refuses to be checked out.
== END ==
PROVIDERS: Family Provider Internal Medicine; PCP Internal Medicine; Referring Provider Internal Medicine; Visit Provider Internal Medicine
DX: N18.30 Chronic kidney disease, stage 3 unspecified (principal); N17.9 Acute kidney failure, unspecified; E86.0 Dehydration
CPT/HCPCS: 96360

== ENCOUNTER → 2020-03-24 14:41 | Outpatient (ROUT) | payer MEDICARE, SELFPAY ==
[2020-01-15 15:40] VITALS: BMI 24.2
[2020-03-24 15:07] LABS: Blood Urea Nitrogen 27 mg/dL (9-20); Calcium 9.3 mg/dL (8.4-10.2); Carbon Dioxide 26 mmol/L (22-32); Chloride 102 mmol/L (98-107); Estimated Glomerular Filt Rate 33.3 mL/min (>60); Glucose 143 mg/dL (80-110); HEMOLYSIS < 15 (0-50); Potassium 3.3 mmol/L (3.4-5.1); Sodium 134 mmol/L (137-145)
== END ==
PROVIDERS: Family Provider Internal Medicine; PCP Internal Medicine; Visit Provider Internal Medicine
DX: N18.30 Chronic kidney disease, stage 3 unspecified (principal)
CPT/HCPCS: 80048

== ENCOUNTER → 2020-04-08 18:32 | Outpatient (ROUT) | payer MEDICARE, SELFPAY ==
[2020-01-15 15:40] VITALS: BMI 24.2
[2020-04-08 18:56] LABS: BUN Creatinine Ratio 13.6 (6-22); Blood Urea Nitrogen 22 mg/dL (9-20); Calcium 9.3 mg/dL (8.4-10.2); Carbon Dioxide 28 mmol/L (22-32); Chloride 101 mmol/L (98-107); Estimated Glomerular Filt Rate 40.8 mL/min (>60); Glucose 131 mg/dL (80-110); HEMOLYSIS < 15 (0-50); Potassium 4.3 mmol/L (3.4-5.1); Sodium 136 mmol/L (137-145)
[2020-04-08 18:59] LABS: Add Manual Diff / Slide Review NO; Basophils Absolute Auto 0 /uL (0-100); Basophils Percent Auto 0.5 % (0-2); Eosinophils Absolute Auto 300 /uL (0-450); Eosinophils Percent Auto 3.6 % (2-4); Hematocrit 30.4 % (41-53); Hemoglobin 10.2 g/dL (13.5-17.5); Lymphocytes Absolute Auto 1200 /uL (1100-4500); Lymphocytes Percent Auto 16.1 % (25-40); Mean Corpuscular HGB Conc 33.7 % (30-36); Mean Corpuscular Hemoglobin 34.2 PG (26-34); Mean Corpuscular Volume 101.7 fL (80-100); Monocytes Absolute Auto 500 /uL (0-900); Monocytes Percent Auto 7.2 % (3-14); Neutrophils Absolute Auto 5400 /uL (1500-7000); Neutrophils Percent Auto 72.6 % (50-75); Platelet Count 245 X10^3/uL (150-400); Red Blood Cell Count 2.98 X10^6/uL (4.5-5.9); Red Cell Distribution Width 14.5 % (11.6-14.8); White Blood Cell Count 7.5 X10^3/uL (4.5-11.0)
== END ==
PROVIDERS: Visit Provider Internal Medicine
DX: N17.9 Acute kidney failure, unspecified (principal)
CPT/HCPCS: 80048; 85025

== ENCOUNTER → 2020-09-03 14:55 | Outpatient (ROUT) | payer MEDICARE, SELFPAY ==
[2020-01-15 15:40] VITALS: BMI 24.2
[2020-09-03 15:40] LABS: Add Manual Diff / Slide Review NO; Basophils Absolute Auto 0 /uL (0-100); Basophils Percent Auto 0.2 % (0-2); Eosinophils Absolute Auto 100 /uL (0-450); Eosinophils Percent Auto 0.9 % (2-4); Hematocrit 31.3 % (41-53); Hemoglobin 9.9 g/dL (13.5-17.5); Lymphocytes Absolute Auto 1300 /uL (1100-4500); Lymphocytes Percent Auto 11.2 % (25-40); Mean Corpuscular HGB Conc 31.8 % (30-36); Mean Corpuscular Hemoglobin 29.9 PG (26-34); Mean Corpuscular Volume 94.2 fL (80-100); Monocytes Absolute Auto 700 /uL (0-900); Monocytes Percent Auto 5.7 % (3-14); Neutrophils Absolute Auto 9600 /uL (1500-7000); Platelet Count 303 X10^3/uL (150-400); Red Blood Cell Count 3.32 X10^6/uL (4.5-5.9); Red Cell Distribution Width 16.8 % (11.6-14.8); White Blood Cell Count 11.7 X10^3/uL (4.5-11.0)
[2020-09-03 15:52] LABS: BUN Creatinine Ratio 17.8 (6-22); Blood Urea Nitrogen 33 mg/dL (9-20); Calcium 9.7 mg/dL (8.4-10.2); Carbon Dioxide 23 mmol/L (22-32); Chloride 103 mmol/L (98-107); Cholesterol 123 mg/dL (140-199); Estimated Glomerular Filt Rate 34.9 mL/min (>60); Glucose 144 mg/dL (80-110); HDL Cholesterol 28 mg/dL (40-60); HEMOLYSIS < 15 (0-50); LDL Cholesterol Calculated 72 mg/dL (<100); Potassium 4.5 mmol/L (3.4-5.1); Sodium 136 mmol/L (137-145); Triglycerides 115 mg/dL (35-150)
[2020-09-04 06:12] LABS: Parathyroid Hormone Int 24 pg/mL (15-65)
== END ==
PROVIDERS: Family Provider Internal Medicine; PCP Internal Medicine; Visit Provider Internal Medicine
DX: E78.2 Mixed hyperlipidemia (principal); N18.30 Chronic kidney disease, stage 3 unspecified
CPT/HCPCS: 80048; 80061; 83970; 84100; 85025

== ENCOUNTER 2020-09-10 11:31 | Emergency (ER) | payer MEDICARE, SELFPAY ==
[2020-09-09 15:31] VITALS: BMI 24.2
[2020-09-10] VITALS (9 sets, daily range): BP systolic 147–193; BP diastolic 67–84; PULSE 67–92; RESP 18–44; TEMP 36.6; O2SAT 95–98; BMI 27.4
--- NOTE | 2020-09-10 12:17 | DI.CT.S_ITS ---
PROCEDURE: CT ANGIO CHEST ABDOMEN PELVIS INDICATIONS: abdomen and back pain, extensive history, bypass, ex lap TECHNIQUE: Precontrast 5 mm thick sections acquired from the lung apices to the iliac crests. After the administration of intravenous contrast, 2.5 mm thick sections again acquired from the lung apices to the iliac crests. Maximum intensity projection (MIP) oblique sagittal and coronal reformats were then acquired. For radiation dose reduction, the following was used: automated exposure control. COMPARISON: [facility], CT, CT ABDOMEN PELVIS W CON, 09/16/2019, 10:11. FINDINGS: Image quality: Excellent. AORTA: No acute aortic syndrome. No aortic dissection. Aortoiliac stent graft repair. Graft is patent. Aortic aneurysm measures up to 3.5 cm in diameter, (/50), previously 3.2 cm. No passive occasion of the inter is some sac. No central pulmonary embolism. CHEST: Lungs and pleura: A few pulmonary nodules. For example: -Right upper lobe pulmonary nodule measuring 0.5 cm, (6/134), unchanged. -Right lower lobe pulmonary nodule measuring 0.6 cm, (6/155), unchanged. Calcified granuloma. No acute airspace opacities. No pleural effusions or pneumothorax. Central and peripheral airways are patent and normal in caliber. Mediastinum: Post median sternotomy. Heart size is normal. No pericardial effusion. No mediastinal or hilar adenopathy by size criteria. Central pulmonary arteries are normal in size. Esophagus is normal in caliber. No hiatal hernias. Bones and chest wall: No axillary adenopathy by size criteria. Subcentimeter right thyroid nodule. No suspicious bony lesions. No vertebral body compression fractures. ABDOMEN: Vasculature: The celiac artery stent. 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 SUSANNA is not seen. Right renal artery is diminutive compared to the left. Ectasia of the left LENS MATCHER. Solid organs: Liver is normal in size and enhancement. Gallbladder is absent. Biliary system is non dilated. Diffuse pancreatic calcifications. Consistent calcific pancreatitis. Pancreatic duct is dilated. No peripancreatic fluid collection. Spleen is normal in size and enhancement. No adrenal nodules. Right kidney is atrophic. No hydronephrosis. Peritoneum and bowel: No free fluid or air. No small bowel obstruction. Colorectal anastomosis. Nodes and vessels: No retroperitoneal or mesenteric adenopathy by size criteria. Inferior vena cava is normal in morphology. Miscellaneous: No ventral hernias. Ventral abdominal wall scar. PELVIS: Genitourinary: Bladder is unremarkable. Miscellaneous: No inguinal hernias or adenopathy. No ventral hernias. Bones: No suspicious bony lesions. DDD. No vertebral body compression fractures. IMPRESSION: 1. No acute aortic syndrome. No dissection. Aortoiliac stent graft repair is patent. Celiac artery stent is patent. Proximal SMA is cleared it as before, with reconstitution of flow distally. 2. No free fluid. No bowel obstruction. 3. Findings of chronic calcific pancreatitis. The pancreatic duct is dilated. No peripancreatic fluid collection. 4. A few small pulmonary nodules. Largest measuring 0.6 cm in the right lower lobe which is stable compared to 2020. -Recommend continued imaging surveillance with CT of the chest in approximately 1 year. Dictated by: Anurag Elias M.D. on 09/10/2020 at 13:23 Approved by: Anurag Elias M.D. on 09/10/2020 at 13:41
[2020-09-10 12:29] LABS: Add Manual Diff / Slide Review NO; Basophils Absolute Auto 100 /uL (0-100); Basophils Percent Auto 0.5 % (0-2); Eosinophils Absolute Auto 100 /uL (0-450); Eosinophils Percent Auto 0.9 % (2-4); Hematocrit 29.7 % (41-53); Hemoglobin 9.7 g/dL (13.5-17.5); Lymphocytes Absolute Auto 1400 /uL (1100-4500); Lymphocytes Percent Auto 10.8 % (25-40); Mean Corpuscular HGB Conc 32.7 % (30-36); Mean Corpuscular Hemoglobin 30.4 PG (26-34); Mean Corpuscular Volume 93.1 fL (80-100); Monocytes Absolute Auto 700 /uL (0-900); Monocytes Percent Auto 5.4 % (3-14); Neutrophils Absolute Auto 10400 /uL (1500-7000); Neutrophils Percent Auto 82.4 % (50-75); Platelet Count 286 X10^3/uL (150-400); Red Blood Cell Count 3.19 X10^6/uL (4.5-5.9); Red Cell Distribution Width 17.1 % (11.6-14.8); White Blood Cell Count 12.7 X10^3/uL (4.5-11.0)
[2020-09-10 12:47] LABS: Alanine Aminotransferase 38 IU/L (<50); Albumin 3.8 g/dL (3.5-5.0); Alkaline Phosphatase 104 U/L (38-126); Aspartate Aminotransferase 46 IU/L (17-59); BUN Creatinine Ratio 16.2 (6-22); Bilirubin Total 0.4 mg/dL (0.2-1.3); Blood Urea Nitrogen 32 mg/dL (9-20); Calcium 9.6 mg/dL (8.4-10.2); Carbon Dioxide 22 mmol/L (22-32); Chloride 103 mmol/L (98-107); Creatine Kinase < 20 U/L (55-170); Estimated Glomerular Filt Rate 32.5 mL/min (>60); Globulin 3.9 g/dL (1.7-4.1); Glucose 166 mg/dL (80-110); HEMOLYSIS < 15 (0-50); Lipase 15 U/L (23-300); Potassium 3.9 mmol/L (3.4-5.1); Sodium 136 mmol/L (137-145); Total Protein 7.7 g/dL (6.3-8.2)
[2020-09-10] MEDS: SODIUM CHLORIDE 0.9% 1,000 ML 125 ML IV (12:51)
[2020-09-10 12:59] LABS: NT-proBNP (BNP-Adult 18+) 3840 pg/mL (<450); Troponin I < 0.012 ng/mL (0.01-0.034)
--- NOTE | 2020-09-10 13:05 | ED_ITS ---
HPI - Back Pain/Injury General Chief Complaint: Back Pain/Injury Stated Complaint: sent by [facility]/lower back and abdomen pain Time Seen by Provider: 09/10/20 11:35 Source: patient Mode of arrival: Ambulatory Limitations: no limitations History of Present Illness HPI Narrative: 85-year-old male former smoker with extensive medical history, particularly multiple large surgeries in 2019 including vascular surgeries like a femoral-femoral bypass as well as an exploratory laparotomy for lysis of adhesions, bowel resection and eventual reanastomosis presents at the request of his primary care provider's office for evaluation of gradually worsening bilateral low back pain which is reaching around to his abdomen. He is not dizzy nor weak or lightheaded. He denies chest pain or shortness of breath. He has had no nausea, vomiting or diarrhea and denies any fever or chills. He states his pain seems to be worse when he moves and improves with rest. He denies any obvious injury, overuse or trauma. He denies any neurologic problems such as numbness, tingling or weakness. He denies any loss of control of bowel or bladder Related Data Home Medications Medication Instructions Recorded Confirmed clopidogrel [Plavix] 75 mg PO QDAY #0 02/12/16 10/14/19 isosorbide mononitrate 40 mg PO DAILY #0 02/12/16 10/14/19 atenolol 25 mg tablet 25 mg PO DAILY 11/02/17 10/14/19 cholecalciferol (vitamin D3) 25 1,000 unit PO DAILY 11/02/17 10/14/19 mcg (1,000 unit) capsule valsartan 80 mg tablet 80 mg PO DAILY 11/02/17 10/14/19 aspirin [Adult Aspirin Regimen] 81 mg PO DAILY 09/16/19 10/14/19 atorvastatin 20 mg PO DAILY 09/16/19 10/14/19 cilostazol 50 mg PO BID 09/16/19 10/14/19 mirtazapine 7.5 mg PO BEDTIME 09/16/19 10/14/19 methocarbamol 1,500 mg PO TID 10/14/19 10/14/19 Previous Rx's Medication Instructions Recorded hydrocodone-acetaminophen 1 tab PO Q4-6H PRN #10 tab 09/10/20 Allergies Allergy/AdvReac Type Severity Reaction Status Date / Time No Known Drug Allergies Allergy Verified 04/09/20 14:05 Review of Systems Constitutional Constitutional: Denies chills, Denies fatigue, Denies fever(s), Denies frequent falls, Denies lethargy and Denies weakness Eyes Eyes: Denies change in vision, Denies eye discharge, Denies irritation and Denies loss of vision ENT Ears, Nose, Mouth, and Throat: Denies change in voice, Denies dizziness, Denies neck pain, Denies sore throat and Denies throat swelling Cardiovascular Cardiovascular: Denies chest pain, Denies irregular heart rhythm, Denies l ightheadedness, Denies palpitations, Denies dyspnea, Denies dyspnea on exertion and Denies orthopnea Respiratory Respiratory: Denies cough, Denies dyspnea, Denies dyspnea on exertion and Denies wheezing Gastrointestinal Gastrointestinal: Denies abdominal pain, Denies change in bowel habits, Denies diarrhea, Denies nausea and Denies vomiting Musculoskeletal Musculoskeletal: Reports back pain, Denies neck pain and Denies numbness Integumentary/Breasts Skin/Breast: Denies pruritus, Denies erythema, Denies rash and Denies wounds Neurologic Neurologic: Denies behavioral changes, Denies confusion, Denies dizziness, Denies frequent falls, Denies loss of vision, Denies numbness and Denies weakness Psychiatric Psychiatric: Denies anxiety, Denies behavioral changes, Denies confusion, Denies depression, Denies homicidal ideation and Denies suicidal ideation Endocrine Endocrine: Denies fatigue, Denies flushing and Denies palpitations Hematologic/Lymphatic Hematologic/Lymphatic: Denies easy bruising Allergic/Immunologic Allergic/Immunologic: Denies urticaria, Denies throat swelling and Denies wh eezing Patient History Medical History (Updated 09/10/20 @ 14:11 by Monster Fagan DO) Arthritis Coronary artery disease Diabetes type 2, controlled Heart disease Surgical History History of cataract removal with insertion of prosthetic lens History of cataract removal with insertion of prosthetic lens Status post cholecystectomy Status post partial mastectomy Family History Brother Cancer Grandmother Diabetes mellitus Mother Heart disease Father Heart disease Social History marital status: household members: spouse Smoking Status: Former smoker Tobacco: How many years used: 20 Smokeless tobacco user: other quit status: quit date established alcohol intake: current additional social history: Caffiene: 1 1/2 cups of Coffee 1-2 cans of soda a day Smoking Status: Former smoker alcohol intake frequency: holidays/special occasions only Substance Use Type: does not use Exam Narrative Exam Narrative: GENERAL: [85] year old patient appears stated age. Well- developed patient, in mild distress. HEAD: Atraumatic. Normocephalic. EYES: Pupils equal round and reactive. Extraocular motions intact. No scleral icterus. No injection or drainage. ENT: Nose without bleeding, purulent drainage. Throat without erythema, tonsillar hypertrophy or exudate. Airway patent. NECK: Trachea midline. Non tender CARDIOVASCULAR: Regular rate and rhythm without murmurs, gallops, or rubs. RESPIRATORY: Clear to auscultation. Breath sounds equal bilaterally. No wheezes, rales, or rhonchi. GASTROINTESTINAL: Abdomen soft, non-tender, nondistended. Bowel sounds present in all 4 quadrants EXTREMITIES: No edema or joint tenderness. BACK: Nontender without deformity or crepitance. No flank tenderness. No saddle anesthesia NEURO: AOx3. SKIN: No rash or erythema of visible areas Initial Vital Signs Initial Vital Signs: Vital Signs Temperature 97.9 F 09/10/20 11:53 Pulse Rate 83 09/10/20 11:53 Respiratory Rate 18 09/10/20 11:53 Blood Pressure 156/69 H 09/10/20 11:53 Pulse Oximetry 98 09/10/20 11:53 Course Orders Ordered: ED Orders 09/10/20 12:15 Complete Blood Count AUTO DIFF Stat Comprehensive Metabolic Panel Stat Lipase Stat NT-proBNP (BNP-Adult 18+) Stat Troponin & CK Cardiac Panel Stat 09/10/20 12:17 CT angio chest abdomen pelvis Stat Discontinued Medications Hydrocodone Bitart/Acetaminophen (Hydrocodone/Acet 5/325 Tablet) 1 tab PO NOW ONE Stop: 09/10/20 14:10 Last Admin: 09/10/20 14:18 Dose: 1 tab Documented by: RSTONE Sodium Chloride (Normal Saline 0.9%) 1,000 mls @ 125 mls/hr IV CONT MEJIA Last Infusion: 09/10/20 14:53 Dose: 0 mls/hr Documented by: Infusion: 09/10/20 12:52 Dose: 500 mls/hr Documented by: Admin: 09/10/20 12:51 Dose: 125 mls/hr Documented by: LOLA Vital Signs Vital signs: Vital Signs - 8 hr 09/10/20 11:53 09/10/20 12:03 09/10/20 12:08 Temperature 97.9 F Pulse Rate 83 79 84 Respiratory Rate 18 23 25 H Blood Pressure 156/69 H 193/84 H Pulse Oximetry 98 96 09/10/20 12:32 09/10/20 13:06 09/10/20 13:07 Temperature Pulse Rate 80 79 78 Respiratory Rate 24 23 Blood Pressure 163/74 H 156/69 H Pulse Oximetry 96 95 97 09/10/20 13:30 09/10/20 14:00 09/10/20 14:01 Temperature Pulse Rate 67 92 H 81 Respiratory Rate 19 44 H 40 H Blood Pressure 147/67 H 158/67 H Pulse Oximetry 95 MDM - Back Pain/Injury Lab Data Result diagrams: 09/10/20 12:15 09/10/20 12:15 Labs: Lab Results 09/10/20 09/10/20 Range/Units 12:15 12:15 WBC 12.7 H (4.5-11.0) X10^3/uL RBC 3.19 L (4.5-5.9) X10^6/uL Hgb 9.7 L (13.5-17.5) g/dL Hct 29.7 L (41-53) % MCV 93.1 (80-100) fL MCH 30.4 (26-34) PG MCHC 32.7 (30-36) % RDW 17.1 H (11.6-14.8) % Plt Count 286 (150-400) X10^3/uL Neut % (Auto) 82.4 H (50-75) % Lymph % (Auto) 10.8 L (25-40) % [place] % (Auto) 5.4 (3-14) % Eos % (Auto) 0.9 L (2-4) % Baso % (Auto) 0.5 (0-2) % Neut # (Auto) 14443 H (0161-8381) /uL Lymph # (Auto) 1400 (9134-7232) /uL [place] # (Auto) 700 (0-900) /uL Eos # (Auto) 100 (0-450) /uL Baso # (Auto) 100 (0-100) /uL Sodium 136 L (137-145) mmol/L Potassium 3.9 (3.4-5.1) mmol/L Chloride 103 (98-107) mmol/L Carbon Dioxide 22 (22-32) mmol/L BUN 32 H (9-20) mg/dL Creatinine 1.97 H (0.66-1.25) mg/dL Estimated GFR 32.5 L (>60) mL/min BUN/Creatinine Ratio 16.2 (6-22) Glucose 166 H (80-110) mg/dL Calcium 9.6 (8.4-10.2) mg/dL Total Bilirubin 0.4 (0.2-1.3) mg/dL AST 46 (17-59) IU/L ALT 38 (<50) IU/L Alkaline Phosphatase 104 (38-126) U/L Total Creatine Kinase < 20 L (55-170) U/L CK-MB (CK-2) TNP CK-MB (CK-2) Rel Index TNP Troponin I < 0.012 (0.01-0.034) ng/mL NT-Pro-B Natriuret Pep 3840 H (<450) pg/mL Total Protein 7.7 (6.3-8.2) g/dL Albumin 3.8 (3.5-5.0) g/dL Globulin 3.9 (1.7-4.1) g/dL Albumin/Globulin Ratio 1.0 (1.0-2.8) Lipase 15 L (23-300) U/L Urine Dip Bedside Urine Glucose Negative Bedside Urine Bilirubin - Negative Bedside Urine Ketone - Negative Urine Specific [facility] 1.020 Bedside Urine Occult Blood - Negative Bedside Urine pH 6.0 Bedside Urine Protein - Negative Bedside Urine Urobilinogen - Negative Bedside Urine Nitrite - Negative Bedside Urine Leukocytes - Negative Esterase Imaging Data CT scan - abdomen/pelvis: Radiologist's Impression: Tyler English 85 M 1935 [address] [id number] Scan ReportSigned Patient: Tyler English MMR#: [id number]: [id number]:[id number]/Sex: 85 / MDate of Service: 09/10/20Loc: EDAccession Number: [id number] Procedure: CT angio chest abdomen pelvis Ordering Provider: Monster Fagan D.O. PROCEDURE: CT ANGIO CHEST ABDOMEN PELVIS INDICATIONS: abdomen and back pain, extensive history, bypass, ex lap TECHNIQUE: Precontrast 5 mm thick sections acquired from the lung apices to the iliac crests. After the administration of intravenous contrast, 2.5 mm thick sections again acquired from the lung apices to the iliac crests. Maximum intensity projection (MIP) oblique sagittal and coronal reformats were then acquired. For radiation dose reduction, the following was used: automated exposure control. COMPARISON: [facility], CT, CT ABDOMEN PELVIS W CON, 09/16/2019, 10:11. FINDINGS: Image quality: Excellent. AORTA: No acute aortic syndrome. No aortic dissection. Aortoiliac stent graft repair. Graft is patent. Aortic aneurysm measures up to 3.5 cm in diameter, (9/50), previously 3.2 cm. No passive occasion of the inter is some sac. No central pulmonary embolism. CHEST: Lungs and pleura: A few pulmonary nodules. For example: -Right upper lobe pulmonary nodule measuring 0.5 cm, (6/134), unchanged. -Right lower lobe pulmonary nodule measuring 0.6 cm, (6/155), unchanged. Calcified granuloma. No acute airspace opacities. No pleural effusions or pneumothorax. Central and peripheral airways are patent and normal in caliber. Mediastinum: Post median sternotomy. Heart size is normal. No pericardial effusion. No mediastinal or hilar adenopathy by size criteria. Central pulmonary arteries are normal in size. Esophagus is normal in caliber. No hiatal hernias. Bones and chest wall: No axillary adenopathy by size criteria. Subcentimeter right thyroid nodule. No suspicious bony lesions. No vertebral body compression fractures. ABDOMEN: Vasculature: The celiac artery stent. 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 SUSANNA is not seen. Right renal artery is diminutive compared to the left. Ectasia of the left [employer]IST. Solid organs: Liver is normal in size and enhancement. Gallbladder is absent. Biliary system is non dilated. Diffuse pancreatic calcifications. Consistent calcific pancreatitis. Pancreatic duct is dilated. No peripancreatic fluid collection. Spleen is normal in size and enhancement. No adrenal nodules. Right kidney is atrophic. No hydronephrosis. Peritoneum and bowel: No free fluid or air. No small bowel obstruction. Colorectal anastomosis. Nodes and vessels: No retroperitoneal or mesenteric adenopathy by size criteria. Inferior vena cava is normal in morphology. Miscellaneous: No ventral hernias. Ventral abdominal wall scar. PELVIS: Genitourinary: Bladder is unremarkable. Miscellaneous: No inguinal hernias or adenopathy. No ventral hernias. Bones: No suspicious bony lesions. DDD. No vertebral body compression fractures. IMPRESSION: 1. No acute aortic syndrome. No dissection. Aortoiliac stent graft repair is patent. Celiac artery stent is patent. Proximal SMA is cleared it as before, with reconstitution of flow distally. 2. No free fluid. No bowel obstruction. 3. Findings of chronic calcific pancreatitis. The pancreatic duct is dilated. No peripancreatic fluid collection. 4. A few small pulmonary nodules. Largest measuring 0.6 cm in the right lower lobe which is stable compared to 2020. -Recommend continued imaging surveillance with CT of the chest in approximately 1 year. Dictated by: Anurag Elias M.D. on 09/10/2020 at 13:23 Approved by: Anurag Elias M.D. on 09/10/2020 at 13:41 [facility] Narrative Medical decision making narrative: Patient has complaint of gradually worsening bilateral low back pain and now involvement of his abdomen create a rather long list of considerations. Given the complexity and number of surgeries in his chest and abdomen last year including multiple vascular as well as ex lap for lysis of adhesions and bowel resection raises suspicion of possible AAA, dissection, clotting abnormality, or other vascular abnormalities such as bleeding or stenosis but these are thought unlikely given the lack of any convincing findings on the imaging. Multiple bowel diagnoses such as inflamma tory, infectious, obstructive processes considered but thought unlikely given lack of findings on imaging or classic presentation. Given flank pain with radiation around his sides urinary source was considered but there is no evidence of infection in his urine. All in all, he has a very reassuring history, physical exam, diagnostics and imaging. His BNP is elevated but patient has no shortness of breath, hypoxia, increased work of breathing, crackles on exam, bilateral lower extremity edema, or pulmonary edema on imaging. Discharge Plan Departure Patient Disposition: Home Clinical Impression: Back pain Qualifiers: Back pain location: thoracic back pain Chronicity: acute Back pain laterality: bilateral Qualified Code(s): M54.6 - Pain in thoracic spine Abdominal pain Qualifiers: Abdominal location: generalized Qualified Code(s): R10.84 - Generalized abdominal pain Instructions: DI for Abdominal Pain-Adult Activity Restrictions/Additional Instructions: *You have been diagnosed with [acute on chronic back and abdominal pain, as we discussed your imaging and labs are very reassuring] *What to do: *Please continue to take your regular medications as directed. [x ] New medication prescriptions sent to your pharmacy: [facility]] [ ] New medication written as a paper prescription [ ] No new medications given *Please follow up with your primary care provider tomorrow as planned. Let them know you were seen in the Emergency Department and that we ask that you be seen in follow up. We will electronically transmit a record of today's note if your PCP is in our system *Return to Emergency Department if you should have any new, worsening or c oncerning symptoms, such as [fever greater than 101 F, shaking chills, worsening pain, persistent vomiting or other bothersome symptoms] Prescriptions: New hydrocodone-acetaminophen 5-325 mg tablet 1 tab PO Q4-6H PRN (Reason: pain) Qty: 10 RF: 0 No Action isosorbide mononitrate 30 MG tablet extended release 24 hr 40 mg PO DAILY Qty: 0 RF: 0 clopidogrel [Plavix] 75 MG tablet 75 mg PO QDAY Qty: 0 RF: 0 methocarbamol 750 mg tablet 1,500 mg PO TID RF: 0 aspirin [Adult Aspirin Regimen] 81 mg Tablet,Delayed Release (Dr/Ec) 81 mg PO DAILY RF: 0 atorvastatin 20 mg tablet 20 mg PO DAILY RF: 0 cilostazol 50 mg tablet 50 mg PO BID RF: 0 mirtazapine 15 mg Tablet 7.5 mg PO BEDTIME RF: 0 atenolol 25 mg tablet 25 mg PO DAILY RF: 0 valsartan [Diovan] 80 mg tablet 80 mg PO DAILY RF: 0 cholecalciferol (vitamin D3) 1,000 unit capsule 1,000 unit PO DAILY RF: 0 Referrals: Luis Carlos Stewart MD [Primary Care Provider] -
[2020-09-10] MEDS: HYDROCODONE/ACET 5/325 TABLET 1 TAB PO (14:18)
== END 2020-09-10 14:57 | disposition home or self-care (01) ==
PROVIDERS: Emergency Provider Emergency Medicine; Family Provider Internal Medicine; PCP Internal Medicine
DX: M54.6 Pain in thoracic spine (principal); R10.84 Generalized abdominal pain
CPT/HCPCS: 36415; 71275; 74174; 80053; 81003; 82550; 83690; 83880; 84484; 85025; 96360; 96361; 99284; Q9967

== ENCOUNTER → 2020-10-01 12:23 | Outpatient (CLI) | payer MEDICARE, SELFPAY ==
[2020-09-09 15:31] VITALS: BMI 24.2
--- NOTE | 2020-10-01 12:25 | DI.RAD.S_ITS ---
PROCEDURE: XR LUMBAR SPINE MIN 4V INDICATIONS: BACK PAIN TECHNIQUE: 4 views of the lumbar spine were acquired, including bilateral oblique views. COMPARISON: [facility], CT, CT ANGIO CHEST ABDOMEN PELVIS, 09/10/2020, 13:02. FINDINGS: Bones: 5 nonrib-bearing vertebrae are present. There is normal bony alignment. No vertebral body compression fractures. No suspicious bony lesions. Multilevel degenerative disc space loss and multilevel facet arthropathy. Soft tissues: Overlying bowel gas pattern is normal. No suspicious soft tissue calcifications. Extensive endovascular stents in the aorta and bilateral iliac arteries. SMA stent. Calcifications of chronic pancreatitis. Oblique images: No pars defects. IMPRESSION: Lumbar degenerative change. No evidence acute bony abnormality of the lumbar spine. If clinical suspicion and/or symptoms persist, further assessment with repeat plain films, or advanced imaging (e.g., CT, MRI, or bone scan) may be helpful for further assessment. Dictated by: Vijay Sierra M.D. on 10/01/2020 at 17:57 Approved by: Vijay Sierra M.D. on 10/01/2020 at 18:00
== END ==
PROVIDERS: Family Provider Internal Medicine; PCP Internal Medicine; Referring Provider Physical Medicine & Rehabilitation; Visit Provider Physical Medicine & Rehabilitation
DX: M48.00 Spinal stenosis, site unspecified (principal); M47.816 Spondylosis without myelopathy or radiculopathy, lumbar region
CPT/HCPCS: 72110

== ENCOUNTER 2020-10-09 13:18 | Observation (INO) | payer MEDICARE, SELFPAY ==
[2020-09-09 15:31] VITALS: BMI 24.2
[2020-10-09] VITALS (15 sets, daily range): BP systolic 143–169; BP diastolic 67–77; PULSE 81–86; RESP 18–35; TEMP 37–37.1; O2SAT 92–98; BMI 25.8
--- NOTE | 2020-10-09 13:34 | DI.RAD.S_ITS ---
PROCEDURE: XR CHEST 1V INDICATIONS: chest pain TECHNIQUE: One view of the chest was acquired. COMPARISON: [facility], CT, CT ANGIO CHEST ABDOMEN PELVIS, 09/10/2020, 13:02. Outside Facility, RG, CT THORAX/ABD/PELVIS W/WO CONTRAST, 03/29/2016, 8:00. [facility], CR, CHEST 1 VIEW, 02/12/2016, 17:14. [facility], CR, CHEST 1 VIEW, 01/31/2015, 15:38. FINDINGS: Surgical changes and devices: Post CABG. Clips in the abdomen. Lungs and pleura: Mild opacity in the left upper lobe. No pleural effusions or pneumothorax. Mediastinum: Fullness in the right hilar region appears slightly increased compared to 2016. However, no mass is seen in this region on recent CT pulmonary angiogram dated 09/10/2020. Heart size is normal. Bones and chest wall: No suspicious bony lesions. Overlying soft tissues appear unremarkable. IMPRESSION: Mild opacity in the left upper lobe. This could be seen in at atelectasis or pneumonia. This also could be artifactual due to overlying soft tissue. Dictated by: Anurag Elias M.D. on 10/09/2020 at 14:53 Approved by: Anurag Elias M.D. on 10/09/2020 at 14:59
[2020-10-09 13:54] LABS: Add Manual Diff / Slide Review NO; Basophils Absolute Auto 0 /uL (0-100); Basophils Percent Auto 0.1 % (0-2); Eosinophils Absolute Auto 0 /uL (0-450); Eosinophils Percent Auto 0.1 % (2-4); Hematocrit 25.7 % (41-53); Hemoglobin 8.3 g/dL (13.5-17.5); Lymphocytes Absolute Auto 600 /uL (1100-4500); Lymphocytes Percent Auto 3.4 % (25-40); Mean Corpuscular HGB Conc 32.2 % (30-36); Mean Corpuscular Hemoglobin 29.9 PG (26-34); Mean Corpuscular Volume 92.7 fL (80-100); Monocytes Absolute Auto 900 /uL (0-900); Monocytes Percent Auto 4.6 % (3-14); Neutrophils Absolute Auto 17700 /uL (1500-7000); Neutrophils Percent Auto 91.8 % (50-75); Platelet Count 359 X10^3/uL (150-400); Red Blood Cell Count 2.78 X10^6/uL (4.5-5.9); Red Cell Distribution Width 18.1 % (11.6-14.8); White Blood Cell Count 19.3 X10^3/uL (4.5-11.0)
[2020-10-09 14:12] LABS: Alanine Aminotransferase 35 IU/L (<50); Albumin 3.6 g/dL (3.5-5.0); Albumin Globulin Ratio 0.9 (1.0-2.8); Alkaline Phosphatase 106 U/L (38-126); Aspartate Aminotransferase 37 IU/L (17-59); BUN Creatinine Ratio 14.9 (6-22); Bilirubin Total 0.5 mg/dL (0.2-1.3); Blood Urea Nitrogen 29 mg/dL (9-20); Calcium 9.6 mg/dL (8.4-10.2); Carbon Dioxide 20 mmol/L (22-32); Chloride 105 mmol/L (98-107); Creatine Kinase < 20 U/L (55-170); Estimated Glomerular Filt Rate 33.1 mL/min (>60); Globulin 3.9 g/dL (1.7-4.1); Glucose 158 mg/dL (80-110); HEMOLYSIS < 15 (0-50); Magnesium 1.8 mg/dL (1.6-2.3); Potassium 4.1 mmol/L (3.4-5.1); Sodium 135 mmol/L (137-145); Total Protein 7.5 g/dL (6.3-8.2)
[2020-10-09 14:17] LABS: Lipase < 10 U/L (23-300)
[2020-10-09 14:24] LABS: NT-proBNP (BNP-Adult 18+) 11200 pg/mL (<450); Troponin I 0.016 ng/mL (0.01-0.034)
[2020-10-09 14:41] LABS: COVID19 - ADMIT (NP swab/PCR) Negative (Negative); COVID19 -Nasal RAPID Negative (Negative)
[2020-10-09 14:48] LABS: Lactate (Lactic Acid) 1.3 mmol/L (0.7-2.1)
--- NOTE | 2020-10-09 15:21 | ED.SOB ---
HPI - SOB/Dyspnea General Chief Complaint: Shortness of Breath/Dyspnea Stated Complaint: New Meds, SOB, Cough, Nose Bleeds Time Seen by Provider: 10/09/20 14:54 Source: patient and family Mode of arrival: Ambulatory History of Present Illness HPI Narrative: Male with history of chronic back pain presenting with increasing shortness of breath. Of a been ongoing for the last week a progressively getting worse. He has has positive orthopnea and shortness of breath with exertion. He has a dry nonproductive cough. He denies any fever or chills he occasionally has some chest discomfort as well. He is currently on steroids for his back pain. She is supposed to see a provider to get injections. He was started on tramadol yesterday more his worsening back pain however he says it just knocked him out. He has previously been seen here for back pain and had a CT angio last month which did not show any aortic abnormality. Related Data Home Medications Medication Instructions Recorded Confirmed clopidogrel 75 mg tablet (Plavix) 75 mg PO QDAY #0 02/12/16 10/07/20 isosorbide mononitrate 30 mg 40 mg PO DAILY #0 02/12/16 10/07/20 tablet,extended release 24 hr cholecalciferol (vitamin D3) 25 1,000 unit PO DAILY 11/02/17 10/07/20 mcg (1,000 unit) capsule aspirin 81 mg tablet,delayed 81 mg PO DAILY 09/16/19 10/07/20 release (Adult Aspirin Regimen) atorvastatin 20 mg tablet 20 mg PO DAILY 09/16/19 10/07/20 mirtazapine 15 mg tablet 7.5 mg PO BEDTIME 09/16/19 10/07/20 methocarbamol 750 mg tablet 1,500 mg PO TID 10/14/19 10/07/20 ferrous sulfate 324 mg (65 mg 324 mg PO DAILY 10/07/20 10/07/20 iron) tablet,delayed release gabapentin 100 mg capsule 100 mg PO TID 10/07/20 10/07/20 Previous Rx's Medication Instructions Recorded methylprednisolone 4 mg tablets in See Rx Instructions PO PER PKG DIR 10/07/20 a dose pack (Medrol (Praveen)) #21 ea tramadol 50 mg tablet 50 mg PO BID PRN #60 tab 10/07/20 Allergies Allergy/AdvReac Type Severity Reaction Status Date / Time No Known Drug Allergies Allergy Verified 10/07/20 09:50 Review of Systems Review of Systems ROS Unobtainable: All systems reviewed & are unremarkable except as noted in HPI and below Constitutional Constitutional: Denies body ache(s), Denies chills and Denies fever(s) ENT Ears, Nose, Mouth, and Throat: Denies sinus pain and Denies sore throat Cardiovascular Cardiovascular: Reports chest pain, Denies rapid heart rate, Reports dyspnea on exertion and Reports orthopnea Respiratory Respiratory: Reports dyspnea on exertion Gastrointestinal Gastrointestinal: Denies abdominal pain, Denies nausea and Denies vomiting Genitourinary Genitourinary: Denies urinary frequency and Denies urinary hesitancy Musculoskeletal Musculoskeletal: Reports back pain (Chronic ongoing) Patient History Medical History Arthritis Coronary artery disease Diabetes type 2, controlled Heart disease Herniated nucleus pulposus, lumbar Surgical History History of cataract removal with insertion of prosthetic lens History of cataract removal with insertion of prosthetic lens Status post cholecystectomy Status post partial mastectomy Family History Brother Cancer Grandmother Diabetes mellitus Mother Heart disease Father Heart disease Social History marital status: household members: spouse Smoking Status: Former smoker Tobacco: How many years used: 20 Smokeless tobacco user: other quit status: quit date established alcohol intake: current additional social history: Caffiene: 1 1/2 cups of Coffee 1-2 cans of soda a day Smoking Status: Former smoker alcohol intake frequency: holidays/special occasions only Substance Use Type: does not use Exam Initial Vital Signs Initial Vital Signs: Vital Signs Temperature 98.8 F 10/09/20 13:53 Pulse Rate 86 10/09/20 13:53 Respiratory Rate 20 10/09/20 13:53 Blood Pressure 156/75 H 10/09/20 13:53 Pulse Oximetry 98 10/09/20 13:53 GENERAL alert 85-year-old male overall appears well HEENT: Head atraumatic,EOMI, pupils reactive, face symmetric, moist mucous membranes CARDIOVASCULAR: Regular rate and rhythm without murmurs, rubs or gallops. RESPIRATORY: Crackles at bases no respiratory distress speaks in full sentences ABDOMEN: Soft, nontender. Normoactive bowel sounds all 4 quadrants. No guarding or rebound EXTREMITIES: Normal range of motion, no clubbing or edema. Neurovascularly intact NEUROLOGICAL: Alert and oriented x4.Normal gait and speech. SKIN: Warm, dry, no laceration, no petechiae, no rashes or lesions. Course Orders Ordered: Acetaminophen (Acetaminophen 325 Mg Tablet) 650 mg PO Q6HR PRN PRN Reason: Fever/Mild Pain (1-3) Last Admin: 10/10/20 02:32 Dose: 650 mg Documented by: Albuterol (Albuterol 2.5 Mg/3 Ml Neb (Adult)) 2.5 mg INH [id number] PRN PRN Reason: Shortness Of Breath Aspirin (Aspirin Ec 81 Mg Tablet) 81 mg PO DAILY [facility] Atorvastatin Calcium (Atorvastatin 20 Mg Tablet) 20 mg PO DAILY [facility] Dextrose (Dextrose 50 % In Water 25 Gm/50 Ml Syringe) 25 gm IV PRN PRN PRN Reason: Hypoglycemia Furosemide (Furosemide 40 Mg/4 Ml Vial) 40 mg IV DAILY [facility] Heparin Sodium (Porcine) (Heparin 5,000 Unit/Ml Vial) 5,000 unit SUBCUT BID [facility] Ceftriaxone Sodium 1,000 mg/ (Sodium Chloride) 100 mls @ 200 mls/hr IV Q24H [facility] Azithromycin 500 mg/ Dextrose 250 mls @ 250 mls/hr IV Q24H [facility] Insulin Human Lispro (Insulin Lispro 100 Unit/Ml 3ml Vial) 0 unit SUBCUT ACHS [facility]; Protocol Last Admin: 10/09/20 20:39 Dose: 3 unit Documented by: Ondansetron HCl (Ondansetron 4 Mg/2 Ml Inj) 4 mg IV Q8HR PRN PRN Reason: Nausea And Vomiting Tramadol HCl (Tramadol 50 Mg Tablet) 50 mg PO BID PRN PRN Reason: pain Last Admin: 10/10/20 05:21 Dose: 50 mg Documented by: Discontinued Medications Furosemide (Furosemide 40 Mg/4 Ml Vial) 40 mg IV NOW ONE Stop: 10/09/20 16:34 Last Admin: 10/09/20 17:11 Dose: 40 mg Documented by: ATAYLOR Ceftriaxone Sodium 2,000 mg/ (Sodium Chloride) 100 mls @ 200 mls/hr IV NOW ONE Stop: 10/09/20 16:29 Last Infusion: 10/09/20 17:51 Dose: 0 mls/hr Documented by: Admin: 10/09/20 17:10 Dose: 200 mls/hr Documented by: GERARD Azithromycin 500 mg/ Dextrose 250 mls @ 250 mls/hr IV NOW ONE Stop: 10/09/20 16:29 Last Admin: 10/09/20 18:34 Dose: 250 mls/hr Documented by: SHIRIN Vital Signs Vital signs: Vital Signs - 8 hr 10/09/20 13:53 10/09/20 13:54 10/09/20 13:55 Temperature 98.8 F Pulse Rate 86 83 84 Respiratory Rate 20 18 20 Blood Pressure 156/75 H 146/69 H Pulse Oximetry 98 93 94 10/09/20 14:00 10/09/20 14:30 10/09/20 15:00 Temperature Pulse Rate 84 83 82 Respiratory Rate 23 21 18 Blood Pressure 143/68 H 147/67 H 157/73 H Pulse Oximetry 94 95 92 10/09/20 15:30 10/09/20 15:32 10/09/20 16:00 Temperature Pulse Rate 83 83 84 Respiratory Rate 22 30 H 28 H Blood Pressure 160/75 H 167/72 H Pulse Oximetry 96 95 97 10/09/20 16:30 10/09/20 16:31 Temperature Pulse Rate 82 82 Respiratory Rate 24 28 H Blood Pressure 161/76 H Pulse Oximetry 94 93 MDM - SOB/Dyspnea Lab Data Attestation: I reviewed the patient's lab results. Result diagrams: 10/10/20 05:19 10/10/20 05:19 Labs: Lab Results 10/09/20 10/09/20 10/09/20 Range/Units 13:40 13:40 13:45 WBC 19.3 H (4.5-11.0) X10^3/uL RBC 2.78 L (4.5-5.9) X10^6/uL Hgb 8.3 L (13.5-17.5) g/dL Hct 25.7 L (41-53) % MCV 92.7 (80-100) fL MCH 29.9 (26-34) PG MCHC 32.2 (30-36) % RDW 18.1 H (11.6-14.8) % Plt Count 359 (150-400) X10^3/uL Neut % (Auto) 91.8 H (50-75) % Lymph % (Auto) 3.4 L (25-40) % [place] % (Auto) 4.6 (3-14) % Eos % (Auto) 0.1 L (2-4) % Baso % (Auto) 0.1 (0-2) % Neut # (Auto) 07800 H (0243-0675) /uL Lymph # (Auto) 600 L (7102-0216) /uL [place] # (Auto) 900 (0-900) /uL Eos # (Auto) 0 (0-450) /uL Baso # (Auto) 0 (0-100) /uL Sodium (137-145) mmol/L Potassium (3.4-5.1) mmol/L Chloride (98-107) mmol/L Carbon Dioxide (22-32) mmol/L BUN (9-20) mg/dL Creatinine (0.66-1.25) mg/dL Estimated GFR (>60) mL/min BUN/Creatinine Ratio (6-22) Glucose (80-110) mg/dL Lactate (0.7-2.1) mmol/L Calcium (8.4-10.2) mg/dL Magnesium (1.6-2.3) mg/dL Total Bilirubin (0.2-1.3) mg/dL AST (17-59) IU/L ALT (<50) IU/L Alkaline Phosphatase (38-126) U/L Total Creatine Kinase (55-170) U/L CK-MB (CK-2) CK-MB (CK-2) Rel Index Troponin I (0.01-0.034) ng/mL NT-Pro-B Natriuret Pep (<450) pg/mL Total Protein (6.3-8.2) g/dL Albumin (3.5-5.0) g/dL Globulin (1.7-4.1) g/dL Albumin/Globulin Ratio (1.0-2.8) Lipase (23-300) U/L Procalcitonin (<0.5) ng/mL SARS-CoV-2 (PCR) Negative Negative (Negative) 10/09/20 10/09/20 10/09/20 Range/Units 13:45 13:45 13:45 WBC (4.5-11.0) X10^3/uL RBC (4.5-5.9) X10^6/uL Hgb (13.5-17.5) g/dL Hct (41-53) % MCV (80-100) fL MCH (26-34) PG MCHC (30-36) % RDW (11.6-14.8) % Plt Count (150-400) X10^3/uL Neut % (Auto) (50-75) % Lymph % (Auto) (25-40) % [place] % (Auto) (3-14) % Eos % (Auto) (2-4) % Baso % (Auto) (0-2) % Neut # (Auto) (4052-5327) /uL Lymph # (Auto) (0291-6128) /uL [place] # (Auto) (0-900) /uL Eos # (Auto) (0-450) /uL Baso # (Auto) (0-100) /uL Sodium 135 L (137-145) mmol/L Potassium 4.1 (3.4-5.1) mmol/L Chloride 105 (98-107) mmol/L Carbon Dioxide 20 L (22-32) mmol/L BUN 29 H (9-20) mg/dL Creatinine 1.94 H (0.66-1.25) mg/dL Estimated GFR 33.1 L (>60) mL/min BUN/Creatinine Ratio 14.9 (6-22) Glucose 158 H (80-110) mg/dL Lactate 1.3 (0.7-2.1) mmol/L Calcium 9.6 (8.4-10.2) mg/dL Magnesium 1.8 (1.6-2.3) mg/dL Total Bilirubin 0.5 (0.2-1.3) mg/dL AST 37 (17-59) IU/L ALT 35 (<50) IU/L Alkaline Phosphatase 106 (38-126) U/L Total Creatine Kinase < 20 L (55-170) U/L CK-MB (CK-2) TNP CK-MB (CK-2) Rel Index TNP Troponin I 0.016 (0.01-0.034) ng/mL NT-Pro-B Natriuret Pep 98257 H (<450) pg/mL Total Protein 7.5 (6.3-8.2) g/dL Albumin 3.6 (3.5-5.0) g/dL Globulin 3.9 (1.7-4.1) g/dL Albumin/Globulin Ratio 0.9 L (1.0-2.8) Lipase < 10 L (23-300) U/L Procalcitonin 0.25 (<0.5) ng/mL SARS-CoV-2 (PCR) (Negative) Point of Care Testing Glucose POC 257 Imaging Data Chest x-ray: Radiologist's Impression: PROCEDURE: XR CHEST 1V INDICATIONS: chest pain TECHNIQUE: One view of the chest was acquired. COMPARISON: [facility], CT, CT ANGIO CHEST ABDOMEN PELVIS, 09/10/2020, 13:02. Outside Facility, RG, CT THORAX/ABD/PELVIS W/WO CONTRAST, 03/29/2016, 8:00. [facility], CR, CHEST 1 VIEW, 02/12/2016, 17:14. [facility], CR, CHEST 1 VIEW, 01/31/2015, 15:38. FINDINGS: Surgical changes and devices: Post CABG. Clips in the abdomen. Lungs and pleura: Mild opacity in the left upper lobe. No pleural effusions or pneumothorax. Mediastinum: Fullness in the right hilar region appears slightly increased compared to 2016. However, no mass is seen in this region on recent CT pulmonary angiogram dated 09/10/2020. Heart size is normal. Bones and chest wall: No suspicious bony lesions. Overlying soft tissues appear unremarkable. IMPRESSION: Mild opacity in the left upper lobe. This could be seen in at atelectasis or pneumonia. This also could be artifactual due to overlying soft tissue. Dictated by: Anurag Elias M.D. on 10/09/2020 at 14:53 ECG Data Attestation: I personally reviewed and interpreted this ECG as follows: Interpretation: Normal sinus rhythm rate 94 p.r. interval [address] QRS [address] changes or T-wave inversions MDM Narrative Medical decision making narrative: Patient is found to have a BNP of greater than 11,000 with no prior history of congestive heart failure. He also shown to have possible pneumonia on his chest x-ray. He has a dry nonproductive cough is afebrile however he does have leukocytosis of 19,000. His possibly from steroids versus infection. Procalcitonin mildly elevated 0.25 will empirically give him antibiotics. Community-acquired pneumonia with Rocephin and azithromycin and given 1 dose of Lasix. Found to be anemic with hemoglobin 8.3 hematocrit 25.7 previously 9.7 and 29.7. He which seems to be about his baseline. He is not hypoxic, and in no severe respiratory distress however with new onset of probable CHF and pneumonia with leukocytosis I do recommend staying in the hospital which he agrees to Dr. Brizuela, in ED to seen evaluated patient heavily accept observation Discharge Plan Departure Patient Disposition: Admitted as Observation Clinical Impression: Congestive heart failure, Pneumonia Admit Date/Time: 10/09/20 16:37 Admit Provider: Jonah Brizuela
[2020-10-09 16:34] LABS: Procalcitonin 0.25 ng/mL (<0.5)
[2020-10-09] MEDS: cefTRIAXone 2,000 MG in SODIUM CHLORIDE 0.9% 100 ML 200 ML IV (17:10)
[2020-10-09] MEDS: FUROSEMIDE 40 MG/4 ML VIAL IV (17:11)
--- NOTE | 2020-10-09 17:31 | DI.CT.S_ITS ---
PROCEDURE: CT CHEST WO CON INDICATIONS: pneumonia? TECHNIQUE: Noncontrast 5 mm thick sections acquired from the pulmonary apices to the posterior costophrenic angles. 1 mm lung window, 5 mm thick coronal and sagittal and 7 mm axial MIP reformats were then acquired. For radiation dose reduction, the following was used: automated exposure control, adjustment of mA and/or kV according to patient size. COMPARISON: Outside Facility, RG, CT THORAX/ABD/PELVIS W/WO CONTRAST, 03/29/2016, 8:00. [facility], CT, CT ANGIO CHEST ABDOMEN PELVIS, 09/10/2020, 13:02. [facility], CR, XR CHEST 1V, 10/09/2020, 14:26. FINDINGS: Image quality: Excellent. Lungs and pleura: There are respiratory motion artifacts. Bilateral reticular nodular infiltrates are present. There is interstitial thickening. No acute air space opacities. Small pleural effusions are present bilaterally. No pneumothorax. Central and peripheral airways are patent and normal in caliber. Mediastinum: Heart size is normal. No pericardial effusion. Severe coronary artery calcification. There is CABG. No mediastinal adenopathy by size criteria. Thoracic aorta and central pulmonary arteries are normal in size. Severe aortic calcification. Esophagus is normal in caliber. No hiatal hernia. Bones and chest wall: No suspicious bony lesions. No vertebral body compression fractures. No axillary or supraclavicular adenopathy by size criteria. Thyroid gland contains a 7 mm nodule in the right thyroid lobe. Abdomen: Visualized upper abdominal solid organs and bowel loops appear normal in the absence of contrast. IMPRESSION: 1. There are respiratory motion artifacts. Bilateral reticular nodular infiltrates are present with small pleural effusions. Cannot rule out atypical infections. 2. A degree of pulmonary edema is likely present. 3. Severe atherosclerosis. 4. A 7 mm nodule in the right thyroid lobe. Nonurgent thyroid ultrasound is suggested for follow-up. Dictated by: Kesha Smith M.D. on 10/09/2020 at 18:45 Approved by: Kesha Smith M.D. on 10/09/2020 at 18:54
--- NOTE | 2020-10-09 17:51 | PC.NURSE ---
Ceftriaxone continued upon admission.
[2020-10-09] MEDS: AZITHROMYCIN 500 MG in DEXTROSE 5% IN WATER 250 ML IV (18:34)
[2020-10-09] MEDS: INSULIN LISPRO 100 UNIT/ML 3ML VIAL SUBCUT (20:39)
--- NOTE | 2020-10-09 20:57 | PM.HP.1 ---
History of Present Illness History of Present Illness Date Patient Seen: 10/09/20 Time Patient Seen: 15:00 Chief complaint: New Meds, SOB, Cough, Nose Bleeds Narrative: Mr. English is an 85M with PMH CAD, DM, chronic back pain due to spinal stenosis who comes in with shortness of breath. He notes his shortness of breath has been worsening for one week. He has dyspnea on exertion and orthopnea. He has a cough, that is not productive. He has no fevers/chills. He has had back pain and has been on a medrol pack for this. He had no chest pain. He has no known history of CHF. In the ED, his vitals were unremarkable. Labs notable for WBC of 19.3, 91.8% PMNs, procalcitonin is 0.25. BNP 11,200. Creatinine 1.94 which appears at his baseline. Cxray showed BILL opacity. CT chest showed bilateral reticular infiltrates, small plerual effusion, pulmonary edema. He was given antibiotics and lasix and admitted for further treatment. Patient History Medical History Arthritis Coronary artery disease Diabetes type 2, controlled Heart disease Herniated nucleus pulposus, lumbar Surgical History History of cataract removal with insertion of prosthetic lens History of cataract removal with insertion of prosthetic lens Status post cholecystectomy Status post partial mastectomy Family & Social History Family History Brother Cancer Grandmother Diabetes mellitus Mother Heart disease Father Heart disease Social History: household members spouse Prior Living Arrangements House Safety & Behavioral: Feels Safe in Current Yes Environment Been Physically Hurt or No Threatened By a Person Tobacco & Substance use: Smoking Status Former smoker alcohol intake current alcohol intake frequency holiday/special occasion Substance Use Type does not use Meds Home Medications and Allergies Home Medications Medication Instructions Recorded Confirmed Type clopidogrel 75 mg tablet (Plavix) 75 mg PO QDAY #0 02/12/16 10/07/20 History isosorbide mononitrate 30 mg 40 mg PO DAILY #0 02/12/16 10/07/20 History tablet,extended release 24 hr cholecalciferol (vitamin D3) 25 1,000 unit PO DAILY 11/02/17 10/07/20 History mcg (1,000 unit) capsule aspirin 81 mg tablet,delayed 81 mg PO DAILY 09/16/19 10/07/20 History release (Adult Aspirin Regimen) atorvastatin 20 mg tablet 20 mg PO DAILY 09/16/19 10/07/20 History mirtazapine 15 mg tablet 7.5 mg PO BEDTIME 09/16/19 10/07/20 History methocarbamol 750 mg tablet 1,500 mg PO TID 10/14/19 10/07/20 History ferrous sulfate 324 mg (65 mg 324 mg PO DAILY 10/07/20 10/07/20 History iron) tablet,delayed release gabapentin 100 mg capsule 100 mg PO TID 10/07/20 10/07/20 History methylprednisolone 4 mg tablets in See Rx Instructions PO PER PKG DIR 10/07/20 10/07/20 Rx a dose pack (Medrol (Praveen)) #21 ea tramadol 50 mg tablet 50 mg PO BID PRN #60 tab 10/07/20 10/07/20 Rx Allergies Allergy/AdvReac Type Severity Reaction Status Date / Time No Known Drug Allergies Allergy Verified 10/07/20 09:50 Review of Systems Review of Systems Narrative: 14 systems reviewed and negative aside from what is in HPI Exam Vital Signs (past 8 hours): - 10/09/20 13:53 10/09/20 13:54 10/09/20 13:55 Temperature 98.8 F Pulse Rate 86 83 84 Respiratory Rate 20 18 20 Blood Pressure 156/75 H 146/69 H Pulse Oximetry 98 93 94 10/09/20 14:00 10/09/20 14:30 10/09/20 15:00 Temperature Pulse Rate 84 83 82 Respiratory Rate 23 21 18 Blood Pressure 143/68 H 147/67 H 157/73 H Pulse Oximetry 94 95 92 10/09/20 15:30 10/09/20 15:32 10/09/20 16:00 Temperature Pulse Rate 83 83 84 Respiratory Rate 22 30 H 28 H Blood Pressure 160/75 H 167/72 H Pulse Oximetry 96 95 97 10/09/20 16:30 10/09/20 16:31 10/09/20 17:00 Temperature Pulse Rate 82 82 84 Respiratory Rate 24 28 H 23 Blood Pressure 161/76 H 169/77 H Pulse Oximetry 94 93 95 10/09/20 17:30 Temperature Pulse Rate 84 Respiratory Rate 35 H Blood Pressure Pulse Oximetry 93 Oxygen Delivery Method Room Air Objective Labs Result Diagrams: 10/09/20 13:45 10/09/20 13:45 Labs: Laboratory Results - last 24 hr 10/09/20 10/09/20 10/09/20 13:40 13:40 13:45 WBC 19.3 H RBC 2.78 L Hgb 8.3 L Hct 25.7 L MCV 92.7 MCH 29.9 MCHC 32.2 RDW 18.1 H Plt Count 359 Neut % (Auto) 91.8 H Lymph % (Auto) 3.4 L [place] % (Auto) 4.6 Eos % (Auto) 0.1 L Baso % (Auto) 0.1 Neut # (Auto) 20426 H Lymph # (Auto) 600 L [place] # (Auto) 900 Eos # (Auto) 0 Baso # (Auto) 0 Sodium Potassium Chloride Carbon Dioxide BUN Creatinine Estimated GFR BUN/Creatinine Ratio Glucose Lactate Calcium Magnesium Total Bilirubin AST ALT Alkaline Phosphatase Total Creatine Kinase CK-MB (CK-2) CK-MB (CK-2) Rel Index Troponin I NT-Pro-B Natriuret Pep Total Protein Albumin Globulin Albumin/Globulin Ratio Lipase Procalcitonin SARS-CoV-2 (PCR) Negative Negative 10/09/20 10/09/20 10/09/20 13:45 13:45 13:45 WBC RBC Hgb Hct MCV MCH MCHC RDW Plt Count Neut % (Auto) Lymph % (Auto) [place] % (Auto) Eos % (Auto) Baso % (Auto) Neut # (Auto) Lymph # (Auto) [place] # (Auto) Eos # (Auto) Baso # (Auto) Sodium 135 L Potassium 4.1 Chloride 105 Carbon Dioxide 20 L BUN 29 H Creatinine 1.94 H Estimated GFR 33.1 L BUN/Creatinine Ratio 14.9 Glucose 158 H Lactate 1.3 Calcium 9.6 Magnesium 1.8 Total Bilirubin 0.5 AST 37 ALT 35 Alkaline Phosphatase 106 Total Creatine Kinase < 20 L CK-MB (CK-2) TNP CK-MB (CK-2) Rel Index TNP Troponin I 0.016 NT-Pro-B Natriuret Pep 98536 H Total Protein 7.5 Albumin 3.6 Globulin 3.9 Albumin/Globulin Ratio 0.9 L Lipase < 10 L Procalcitonin 0.25 SARS-CoV-2 (PCR) Assessment & Plan Assessment & Plan narrative: Mr. English is an 85M with PMH CAD, spinal stenosis on steroids, who comes in with shortness of breath most likely from new CHF exacerbation, less likely pneumonia, rule out ACS 1. Acute respiratory distress from acute CHF exacerbation and possibly pneumonia -etiology of respiratory distress more likely to be acute CHF exacerbation, given elevated BNP, pulmonary edema -has been ordered for IV lasix for diuresis -ordered low salt diet, fluid restriction -ordered for ECHO -has possibility of atypical pneumonia per CT appearance -will order sputum cultures and viral respiratory panel -for now keep of ceftriaxone, azithromycin -trend troponins to rule ACS 2. Leukocytosis -patient has been on medrol pack, etiology more likely to be his steroids than infection 3. CAD s/p quadruple bypass -await full med list to confirm aspirin, and statin 4. CKD stage 3, chronic -admission creatinine 1.9, appears near baseline -careful with nephrotoxins -ordered 40mg IV lasix, but may need higher doses to diurese 5. Anemia -no evidence of any bleeding -may benefit from outpatient workup for anemia secondary to CKD 6. Thyroid nodule -outpatient follow up per incidental CT finding 7. Chronic back pain with spinal stenosis -will need discharge back to his outpatient physician to further manage -will continue pain meds here\ IVF; none DIET: low salt, fluid restriction DVT ppx: heparin sc CODE: Full, proxy is , Brian Crowley Harjit VTE Deep Vein Thrombosis/Pulmonary Embolism Present on Admission: No
[2020-10-09 20:59] LABS: Troponin I 0.023 ng/mL (0.01-0.034)
[2020-10-09] MEDS: TRAMADOL 50 MG TABLET PO (22:40)
[2020-10-10 01:00] VITALS: BP 129/70; PULSE 93; RESP 20; TEMP 36.9; O2SAT 98
[2020-10-10] MEDS: ACETAMINOPHEN 325 MG TABLET 650 MG PO ×2 (02:32→08:58)
[2020-10-10] MEDS: TRAMADOL 50 MG TABLET PO ×2 (05:21→13:24)
[2020-10-10 05:50] LABS: Add Manual Diff / Slide Review NO; Basophils Absolute Auto 0 /uL (0-100); Basophils Percent Auto 0.3 % (0-2); Eosinophils Absolute Auto 0 /uL (0-450); Eosinophils Percent Auto 0.3 % (2-4); Hemoglobin 8.5 g/dL (13.5-17.5); Lymphocytes Absolute Auto 1500 /uL (1100-4500); Lymphocytes Percent Auto 9.6 % (25-40); Mean Corpuscular HGB Conc 32.6 % (30-36); Mean Corpuscular Volume 91.8 fL (80-100); Monocytes Absolute Auto 900 /uL (0-900); Monocytes Percent Auto 5.5 % (3-14); Neutrophils Absolute Auto 13700 /uL (1500-7000); Neutrophils Percent Auto 84.3 % (50-75); Platelet Count 383 X10^3/uL (150-400); Red Blood Cell Count 2.83 X10^6/uL (4.5-5.9); Red Cell Distribution Width 17.7 % (11.6-14.8); White Blood Cell Count 16.2 X10^3/uL (4.5-11.0)
[2020-10-10 06:00] LABS: BUN Creatinine Ratio 14.4 (6-22); Blood Urea Nitrogen 29 mg/dL (9-20); Calcium 9.2 mg/dL (8.4-10.2); Carbon Dioxide 22 mmol/L (22-32); Chloride 101 mmol/L (98-107); Estimated Glomerular Filt Rate 31.5 mL/min (>60); Glucose 142 mg/dL (80-110); HEMOLYSIS < 15 (0-50); Magnesium 1.7 mg/dL (1.6-2.3); Potassium 3.3 mmol/L (3.4-5.1); Sodium 135 mmol/L (137-145)
[2020-10-10 06:11] LABS: Troponin I 0.026 ng/mL (0.01-0.034)
[2020-10-10] MEDS: HEPARIN 5,000 UNIT/ML VIAL 5000 UNIT SUBCUT (08:59)
[2020-10-10] MEDS: ATORVASTATIN 20 MG TABLET PO (08:59)
[2020-10-10] MEDS: ASPIRIN EC 81 MG TABLET PO (08:59)
[2020-10-10] MEDS: FUROSEMIDE 40 MG/4 ML VIAL IV (08:59)
[2020-10-10 09:00] VITALS: BP 155/73; PULSE 88; RESP 22; TEMP 36.6; O2SAT 93
[2020-10-10] MEDS: INSULIN LISPRO 100 UNIT/ML 3ML VIAL SUBCUT ×2 (09:02→12:50)
[2020-10-10 12:00] VITALS: BP 144/75; PULSE 81; RESP 16; TEMP 36.5; O2SAT 94
--- NOTE | 2020-10-10 15:03 | PM.PN.1 ---
Subjective Subjective Interval history: Patient is somewhat difficult historian. He reports he had a difficult night last evening due to significant back pain. He also notes his breathing has not improved significantly. Exam Vital Signs (past 8 hours): - 10/10/20 09:00 10/10/20 12:00 Temperature 97.9 F 97.7 F Pulse Rate 88 81 Respiratory Rate 22 16 Blood Pressure 155/73 H 144/75 H Pulse Oximetry 93 94 Oxygen Delivery Method Room Air Oxygen Flow Rate 0 Narrative Exam Narrative: Ill-appearing elderly male lying in bed Resp Other: Lungs decreased breath sounds, clear to auscultation Cardio Other: Cardiac exam: Regular rate and rhythm normal S1-S2 GI Other: Soft nontender nondistended Extrem Other: No edema bilateral Objective Labs Result Diagrams: 10/10/20 05:19 10/10/20 05:19 Labs: Laboratory Results - last 24 hr 10/09/20 10/09/20 10/10/20 13:45 20:26 05:19 WBC 16.2 H RBC 2.83 L Hgb 8.5 L Hct 26.0 L MCV 91.8 MCH 30.0 MCHC 32.6 RDW 17.7 H Plt Count 383 Neut % (Auto) 84.3 H Lymph % (Auto) 9.6 L [place]ane % (Auto) 5.5 Eos % (Auto) 0.3 L Baso % (Auto) 0.3 Neut # (Auto) 95970 H Lymph # (Auto) 1500 Crane # (Auto) 900 Eos # (Auto) 0 Baso # (Auto) 0 Sodium Potassium Chloride Carbon Dioxide BUN Creatinine Estimated GFR BUN/Creatinine Ratio Glucose Calcium Magnesium Troponin I 0.023 Procalcitonin 0.25 10/10/20 10/10/20 05:19 05:19 WBC RBC Hgb Hct MCV MCH MCHC RDW Plt Count Neut % (Auto) Lymph % (Auto) Crane % (Auto) Eos % (Auto) Baso % (Auto) Neut # (Auto) Lymph # (Auto) Crane # (Auto) Eos # (Auto) Baso # (Auto) Sodium 135 L Potassium 3.3 L Chloride 101 Carbon Dioxide 22 BUN 29 H Creatinine 2.02 H Estimated GFR 31.5 L BUN/Creatinine Ratio 14.4 Glucose 142 H Calcium 9.2 Magnesium 1.7 Troponin I 0.026 Procalcitonin [facility] Medical History Arthritis Coronary artery disease Diabetes type 2, controlled Heart disease Herniated nucleus pulposus, lumbar Surgical History History of cataract removal with insertion of prosthetic lens History of cataract removal with insertion of prosthetic lens Status post cholecystectomy Status post partial mastectomy Family History Brother Cancer Grandmother Diabetes mellitus Mother Heart disease Father Heart disease Social History marital status: household members: spouse Smoking Status: Former smoker Tobacco: How many years used: 20 Smokeless tobacco user: other quit status: quit date established alcohol intake: current additional social history: Caffiene: 1 1/2 cups of Coffee 1-2 cans of soda a day Assessment & Plan Assessment & Plan narrative: Acute respiratory distress from acute CHF exacerbation, doubt pneumonia, patient on prednisone Dosepak, no symptoms to suggest pneumonia, as such will discontinue antibiotics -etiology of respiratory distress more likely to be acute CHF exacerbation, given elevated BNP, pulmonary edema -has been ordered for IV lasix for diuresis -ordered low salt diet, fluid restriction -ordered for ECHO --will order sputum cultures and viral respiratory panel --trend troponins to rule ACS -will recheck labs in the morning, replace potassium 2. Leukocytosis -patient has been on medrol pack, etiology more likely to be his steroids than infection 3. CAD s/p quadruple bypass -await full med list to confirm aspirin, and statin 4. CKD stage 3, chronic -admission creatinine 1.9, appears near baseline -careful with nephrotoxins -ordered 40mg IV lasix, but may need higher doses to diurese 5. Anemia -no evidence of any bleeding -may benefit from outpatient workup for anemia secondary to CKD 6. Thyroid nodule -outpatient follow up per incidental CT finding 7. Chronic back pain with spinal stenosis -will need discharge back to his outpatient physician to further manage -will continue pain meds here\ -will add oxycodone as needed given significant symptoms at night IVF; none DIET: low salt, fluid restriction DVT ppx: heparin sc CODE: Full, [facility] Deep [facility]in Thrombosis/Pulmonary Embolism Present on Admission: No
--- NOTE | 2020-10-10 15:52 | CM.DANOTE ---
Discharge Planning/Care Management DCP: assessment: note: Case received and discussed in Team Rounds. Pt is an 85 year old male who admitted yesterday afternoon to care of hospitalist team. Dr. Winters was seeing pt today and noted earlier that she intended to keep him again overnight with a d/c possible tomorrow if he was improving. PCP: Dr. Yanni Stewart Payer: [facility] Medicare Admission status: OBS: confirmed by UR MADINA Estrada. pt and his were reported to be very distressed re the OBS status. Natalie, Julio Cesar Baer, RN Yvonne have conferred and Dr. Winters is updated re the pt's desire to leave now as fearing what he may owe the hospital. Dr. Winters spoke with pt and his and has placed a d/c order for home. CM Discharge Assessment Start: 10/10/20 15:50 Freq: Status: Active Protocol: Document 10/10/20 15:51 ITV (Rec: 10/10/20 15:52 ITV [id number]) Discharge Planning Assessment Advance Directives? Yes Advance Directives on File No History Provided By Medical Record Prior Living Arrangements House Household Members spouse Discharge Plan Home
--- NOTE | 2020-10-10 16:44 | PC.NURSE ---
Pt HL & telemetry discontinued Home instructions reviewed w/understanding. Escorted via W/C by staff to waiting vehicle
--- NOTE | 2020-10-11 15:51 | P.DS_ITS ---
History of Present Illness History of Present Illness Chief complaint: New Meds, SOB, Cough, Nose Bleeds Discharge Providers Provider Date of admission: 10/09/20 16:37 Discharge Date: 10/10/20 Primary care physician: Luis Carlos Stewart MD Consults: 10/09/20 17:51 Consult to Respiratory Therapy Evaluate & Treat Comment: Physician Instructions: Evaluate and treat Discharge provider: Caterina Winters MD Exam Vital Signs (past 8 hours): Oxygen Delivery Method Room Air Oxygen Flow Rate 0 Objective Labs Result Diagrams: 10/10/20 05:19 10/10/20 05:19 [facility] Medical History Arthritis Coronary artery disease Diabetes type 2, controlled Heart disease Herniated nucleus pulposus, lumbar Surgical History History of cataract removal with insertion of prosthetic lens History of cataract removal with insertion of prosthetic lens Status post cholecystectomy Status post partial mastectomy Family History Brother Cancer Grandmother Diabetes mellitus Mother Heart disease Father Heart disease Social History marital status: household members: spouse Smoking Status: Former smoker Tobacco: How many years used: 20 Smokeless tobacco user: other quit status: quit date established alcohol intake: current additional social history: Caffiene: 1 1/2 cups of Coffee 1-2 cans of soda a day Discharge Plan Discharge Plan Patient Disposition: Home Discharge orders & Medications Prescriptions: New furosemide [Lasix] 40 mg tablet 40 mg PO DAILY Qty: 10 RF: 0 Continued clopidogrel [Plavix] 75 MG tablet 75 mg PO QDAY Qty: 0 RF: 0 methocarbamol 750 mg tablet 750 mg PO TID RF: 0 aspirin [Adult Aspirin Regimen] 81 mg Tablet,Delayed Release (Dr/Ec) 81 mg PO DAILY RF: 0 atorvastatin 20 mg tablet 40 mg PO DAILY RF: 0 mirtazapine 15 mg Tablet 30 mg PO BEDTIME RF: 0 Norvasc 5 mg PO DAILY RF: 0 pantoprazole 40 mg Tablet,Delayed Release (Dr/Ec) 40 mg PO DAILY RF: 0 Adult One Daily Multivitamin 1 tab PO DAILY RF: 0 nitroglycerin 0.4 mg Tablet, Sublingual 0.4 mg SUBLINGUAL Q5M PRN (Reason: Chest Pain) RF: 0 cholecalciferol (vitamin D3) 1,000 unit capsule 1,000 unit PO DAILY RF: 0 gabapentin 100 mg capsule 100 mg PO TID RF: 0 ferrous sulfate 324 mg (65 mg iron) tablet,delayed release (DR/EC) 65 mg PO DAILY RF: 0 methylprednisolone [Medrol (Praveen)] 4 mg tablets,dose pack See Rx Instructions PO PER PKG DIR Qty: 21 RF: 0 tramadol 50 mg tablet 50 mg PO BID PRN (Reason: pain) Qty: 60 RF: 1 Follow up/Referrals: Luis Carlos Stewart MD [Primary Care Provider] - Discharge Health Status Multidrug resistant organism: No MDRO Diet/Activity/Treatments Diet: Low-sodium Activity: As tolerated Discharge Data Primary Care Provider: Luis Carlos Stewart V Attending Provider: Jonah Brizuela VTE Deep Vein Thrombosis/Pulmonary Embolism Present on Admission: No
== END 2020-10-10 16:46 | disposition home or self-care (01) ==
LOC: ED 14:54 → AC 16:38
PROVIDERS: Admitting Provider Internal Medicine; Emergency Provider Emergency Medicine; Family Provider Internal Medicine; PCP Internal Medicine; Referring Provider Emergency Medicine; Visit Provider Internal Medicine
DX: R06.03 Acute respiratory distress (principal); G89.29 Other chronic pain; M54.9 Dorsalgia, unspecified; I25.10 Atherosclerotic heart disease of native coronary artery without angina pectoris; E11.9 Type 2 diabetes mellitus without complications; M48.00 Spinal stenosis, site unspecified; I13.0 Hypertensive heart and chronic kidney disease with heart failure and stage 1 through stage 4 chronic kidney disease, or unspecified chronic kidney disease; N18.30 Chronic kidney disease, stage 3 unspecified; I50.9 Heart failure, unspecified; D72.829 Elevated white blood cell count, unspecified; D64.9 Anemia, unspecified; E04.1 Nontoxic single thyroid nodule; Z20.822 Contact with and (suspected) exposure to COVID-19
CPT/HCPCS: 36415; 71045; 71250; 80048; 80053; 82550; 82962; 83605; 83690; 83735; 83880; 84145; 84484; 85025; 87040; 87070; 87205; 87635; 93005; 96365; 96367; 96372; 96375; 96376; 99284; C9803; G0378; J0696; J1644; J1815; J1940

== ENCOUNTER → 2020-10-27 08:21 | Outpatient (CLI) | payer MEDICARE, SELFPAY ==
[2020-10-09 18:12] VITALS: BMI 25.8
[2020-10-27 11:35] LABS: COVID19 -Nasal RAPID Negative (Negative)
== END ==
PROVIDERS: Family Provider Internal Medicine; PCP Internal Medicine; Visit Provider Physical Medicine & Rehabilitation
DX: Z20.822 Contact with and (suspected) exposure to COVID-19 (principal)
CPT/HCPCS: 87635; C9803

== ENCOUNTER 2020-10-29 10:01 | Outpatient (CLI) | payer MEDICARE, SELFPAY ==
[2020-10-09 18:12] VITALS: BMI 25.8
[2020-10-29] VITALS (8 sets, daily range): BP systolic 118–144; BP diastolic 56–65; PULSE 65–79; RESP 12–30; TEMP 36.6–36.7; O2SAT 94–99
--- NOTE | 2020-10-29 10:02 | DI.RAD.S_ITS ---
PROCEDURE: PAIN L/S TRANSFORAMINAL INJECT INDICATIONS: SPONDYLOSIS COMPARISON: [facility], CR, XR LUMBAR SPINE MIN 4V, 10/01/2020, 12:26. FINDINGS: Fluoroscopic spot filming was performed to verify placement of spinal needles at the right L3-L4 level(s), as labeled on the films. Appropriate location(s) of the needle tip(s) was confirmed by injection of iodinated contrast. IMPRESSION: Successful needle tip localization on the right for transforaminal epidural steroid injection at L3-L4. Dictated by: Kodi Ernst M.D. on 10/29/2020 at 14:30 Approved by: Kodi Ernst M.D. on 10/29/2020 at 14:31
[2020-10-29] MEDS: MIDAZOLAM 5 MG/5 ML VIAL IV (11:03)
[2020-10-29] MEDS: IOPAMIDOL 15 ML VIAL 3 ML INJ (11:07)
[2020-10-29] MEDS: BUPIVACAINE 0.25% (PF) VIAL 2 ML INJ (11:07)
[2020-10-29] MEDS: BETAMETHASONE 30 MG/5 ML MDV 6 MG INJ (11:08)
[2020-10-29] MEDS: DEXAMETHASONE 10 MG/ML VIAL 20 MG INJ (11:08)
--- NOTE | 2020-10-29 11:18 | P.PCN_ITS ---
Date/Time/Diagnoses Date of procedure: 10/29/20 Time of procedure: 11:18 Pre-procedure diagnosis: 1. FORAMINAL STENOSIS WITH LE SYMPTOMS Post-procedure diagnosis: same Procedure Notes Procedure: 1. FLUOROSCOPICALLY GUIDED CONTRAST CONTROLLED TRANSFORAMINAL EPIDURAL STEROID INJECTION - RIGHT L3/4 TFESI Indications: Tyler is referred by Dr. Stewart for treatment of Foraminal Stenosis with right LE Symptoms Physician: Thomas Rudolph Total Fluoroscopy time (seconds): 8 Total sedation minutes: 10 Complications: none Procedure in detail & Post-procedure care: FINDINGS Foraminal Nerve Root Compression secondary to disc disease and facet hypertrophy DESCRIPTION OF PROCEDURE Following review of allergy and review of potential side effects and complications, including, but not necessarily limited to, infection, allergic reaction, local tissue breakdown, stroke, temporary or permanent nerve injury, paralysis, and possible , the patient indicated that the patient understood and agreed to proceed. An informed consent document was signed by the patient, witnessed by a nurse, and placed in the patient's chart. Additionally, other treatment options including medications, modalities, and physical therapy were reviewed with the patient. After review of previous anaesthesic history and IV conscious sedation the patient was deemed safe to proceed with today?s procedure with IV conscious sedation as ASA class II designation. Safety time-out was performed to confirm patient ID, procedure to be performed and site of procedure. IV sedation was accomplished with a combination of 2mg of Versed was administered by the RN after DO order, titrated to patient comfort during the course of the procedure while the patient remained responsive to all verbal commands In the prone position following sterile prep and drape of the lumbar region, the right L3/4 posterior neuroforamen was identified fluoroscopically. The skin was anesthetized via a 25-gauge 1.5-inch needle with 1% lidocaine solution. At this point, a 25-gauge 3.5-inch spinal needle was atraumatically introduced and advanced under fluoroscopic guidance through the posterior right L3/4 neuroforamen to approximately the anterior aspect of the canal. Depth was confirmed on lateral view. Following negative aspiration, injection of approximately 1.5 cc of Isovue 200 under live fluoroscopy in the AP view confirmed excellent flow along the nerve root, into the epidural space without vascular or intrathecal uptake observed Radiological data, including multiple fluoroscopic views of the lumbosacral spine, reveal a spinal needle at the right L3/4 posterior neuroforamen. Subsequent views show flow of contrast material flowing superiorly and inferiorly along the nerve root confirming epidural flow. Subsequently, a test dose of 1.5 cc of 1% lidocaine solution was administered and patient was observed for two minutes for signs or symptoms of complications, including abdominal pain, shortness of breath, bilateral upper or lower extremity weakness, nausea and vomiting, prior to steroid injection. At this point, a total of 3cc or 20mg of dexamethasone and 6mg of betamethasone was injected without incident. The patient tolerated the procedure well without signs or symptoms of complications prior to transfer to the recovery area continued monitoring without incident. The patient was then transferred to the recovery area where they were observed for an appropriate time after the injection. The patient reported a VAS score of 7 prior to the procedure and a post-procedure VAS of 0. POST OP INSTRUCTIONS The patient was provided a Pain Log to continue to record their response to the target-specific procedure prior to follow-up visit with their referring physicia n. Additionally, specific post-injection care instructions and a contact number to our office were provided if concerns arise regarding possible complications associated with the procedure are suspected.
== END 2020-10-29 11:32 | disposition home or self-care (01) ==
LOC: RAD 10:01
PROVIDERS: Family Provider Internal Medicine; PCP Internal Medicine; Referring Provider Physical Medicine & Rehabilitation; Visit Provider Physical Medicine & Rehabilitation
DX: M48.061 Spinal stenosis, lumbar region without neurogenic claudication (principal); M51.16 Intervertebral disc disorders with radiculopathy, lumbar region
CPT/HCPCS: 64483; 99152; J0702; J1100; J2250; J3010

== ENCOUNTER 2020-10-29 16:13 | Emergency (ER) | payer MEDICARE, SELFPAY ==
[2020-10-09 18:12] VITALS: BMI 25.8
[2020-10-29 16:23] VITALS: BP 122/79; PULSE 84; RESP 15; TEMP 36.4; O2SAT 96; BMI 26.4
== END 2020-10-29 17:30 | disposition left against medical advice (07) ==
PROVIDERS: Emergency Provider Emergency Medicine; Family Provider Internal Medicine; PCP Internal Medicine
DX: M51.16 Intervertebral disc disorders with radiculopathy, lumbar region (principal); M48.061 Spinal stenosis, lumbar region without neurogenic claudication
CPT/HCPCS: 64483; 99152; 99281; J0702; J1100; J2250; J3010

== ENCOUNTER 2020-11-01 06:06 | Emergency (ER) | payer MEDICARE, SELFPAY ==
[2020-10-09 18:12] VITALS: BMI 25.8
[2020-11-01 06:07] VITALS: BP 154/69; PULSE 91; RESP 20; TEMP 37.2; O2SAT 93; BMI 25.7
[2020-11-01 06:25] VITALS: PULSE 90; RESP 20; O2SAT 96
[2020-11-01 06:30] VITALS: BP 166/73; PULSE 91; RESP 21; O2SAT 93
[2020-11-01 07:00] VITALS: BP 148/71; PULSE 88; RESP 22; O2SAT 91
[2020-11-01 07:29] LABS: Appearance Urine UA CLEAR; Bilirubin Urine UA NEGATIVE (NEGATIVE); Color Urine UA YELLOW; Glucose Urine UA NEGATIVE (Negative); Ketones Urine UA NEGATIVE (NEGATIVE); Leukocyte Esterase Urine UA NEGATIVE (NEGATIVE); Nitrite Urine UA NEGATIVE (Negative); Occult Blood Urine UA NEGATIVE (Negative); Protein Urine UA 1+ (Negative); Urobilinogen Urine UA 0.2 E.U./dL (0.2); pH Urine UA 5.5 (4.5-8.0)
[2020-11-01 07:30] VITALS: BP 144/71; PULSE 98; RESP 41; O2SAT 94
--- NOTE | 2020-11-01 07:44 | ED_ITS ---
HPI - Fall General Chief Complaint: Fall Stated Complaint: fall Time Seen by Provider: 11/01/20 06:10 Source: patient and EMS Mode of arrival: EMS History of Present Illness HPI Narrative: 85-year-old gentleman with complicated medical history multiple end-stage diseases and significant back pain secondary to spinal stenosis presents after a fall at home and inability to get off the floor. I year ago at this time this gentleman had been on hospice and according to his decided ?I want to live? and discontinued his hospice contract. He has been meeting with Dr. Gautam is a primary care physician and Dr. Zhang his window installer with some medication changes that do seem to be having some positive affect. He currently lives with his who is his primary caregiver. Last night apparently he was getting up to go to the bathroom and was too unsteady and fell to the floor. The fall was not witnessed. He states that he needed to go to the bathroom and slipped on his urine his notes that he was on a carpeted surface at the time. He has skin tear in the left forearm and no other obvious trauma. His reports that where there was a trail of urine throughout the house and he notes that it chua slightly when he starts urinating and he has been less and less able to control his urination. Given the overall complexity of issues shared decision making was used to discuss extent of workup. Patient himself would very much like to go home. 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 Together we opted to simply check for a bladder infection to see if there might be a simple solution. We opted to not do additional blood work, EKGs x-rays or advanced imaging. Related Data Home Medications Medication Instructions Recorded Confirmed clopidogrel 75 mg tablet (Plavix) 75 mg PO QDAY #0 02/12/16 10/29/20 cholecalciferol (vitamin D3) 25 1,000 unit PO DAILY 11/02/17 10/29/20 mcg (1,000 unit) capsule aspirin 81 mg tablet,delayed 81 mg PO DAILY 09/16/19 10/29/20 release (Adult Aspirin Regimen) atorvastatin 20 mg tablet 40 mg PO DAILY 09/16/19 10/29/20 mirtazapine 15 mg tablet 30 mg PO BEDTIME 09/16/19 10/29/20 methocarbamol 750 mg tablet 750 mg PO TID 10/14/19 10/29/20 ferrous sulfate 324 mg (65 mg 65 mg PO DAILY 10/07/20 10/29/20 iron) tablet,delayed release gabapentin 100 mg capsule 100 mg PO TID 10/07/20 10/29/20 Adult One Daily Multivitamin 1 tab PO DAILY 10/10/20 10/29/20 Norvasc 5 mg PO DAILY 10/10/20 10/29/20 nitroglycerin 0.4 mg sublingual 0.4 mg SUBLINGUAL Q5M PRN 10/10/20 10/29/20 tablet pantoprazole 40 mg tablet,delayed 40 mg PO DAILY 10/10/20 10/29/20 release Previous Rx's Medication Instructions Recorded methylprednisolone 4 mg tablets in See Rx Instructions PO PER PKG DIR 10/07/20 a dose pack (Medrol (Praveen)) #21 ea tramadol 50 mg tablet 50 mg PO BID PRN #60 tab 10/07/20 furosemide 40 mg tablet (Lasix) 40 mg PO DAILY #10 tab 10/10/20 Allergies Allergy/AdvReac Type Severity Reaction Status Date / Time No Known Drug Allergies Allergy Verified 10/29/20 16:23 Review of Systems Review of Systems Narrative: Increasing weakness, gait instability, falls, confusion, back pain No recent fevers, cough, chills, abdominal pain, flank pain, diarrhea Patient History Medical History Arthritis Coronary artery disease Diabetes type 2, controlled Heart disease Herniated nucleus pulposus, lumbar Surgical History History of cataract removal with insertion of prosthetic lens History of cataract removal with insertion of prosthetic lens Status post cholecystectomy Status post partial mastectomy Family History Brother Cancer Grandmother Diabetes mellitus Mother Heart disease Father Heart disease Social History marital status: household members: spouse Smoking Status: Former smoker Tobacco: How many years used: 20 Smokeless tobacco user: other quit status: quit date established alcohol intake: current additional social history: Caffiene: 1 1/2 cups of Coffee 1-2 cans of soda a day Smoking Status: Former smoker alcohol intake frequency: holidays/special occasions only Substance Use Type: does not use Exam Narrative Exam Narrative: General: Frail, pale is able to participate in some history taking HEENT: Moist mucous membranes, normal sclera with reactive pupils, atraumatic Respiratory: Lungs are clear to auscultation, no wheezing no rales no rhonchi. Full and symmetrical air movement Cardiac: Regular rate and rhythm no murmurs no bruits Abdomen: Soft, nontender, good bowel tones, no flank pain Skin: Thin, skin tear to the left forearm Neurologic: Globally weak Grossly neurologically intact with no obvious asymmetries or abnormalities Extremities: No trauma acute, multiple bruises in various stages of healing Psych: Mild confusion, poor overall insight Initial Vital Signs Initial Vital Signs: Vital Signs Temperature 99.0 F 11/01/20 06:07 Pulse Rate 91 H 11/01/20 06:07 Respiratory Rate 20 11/01/20 06:07 Blood Pressure 154/69 H 11/01/20 06:07 Pulse Oximetry 93 11/01/20 06:07 Course Orders Ordered: ED Orders 11/01/20 06:55 Urinalysis Screen (Dip Only) Stat Discontinued Medications Acetaminophen (Acetaminophen 325 Mg Tablet) 975 mg PO NOW ONE Stop: 11/01/20 07:17 Vital Signs Vital signs: Vital Signs - 8 hr 11/01/20 06:07 11/01/20 06:25 11/01/20 06:30 Temperature 99.0 F Pulse Rate 91 H 90 91 H Respiratory Rate 20 20 21 Blood Pressure 154/69 H 166/73 H Pulse Oximetry 93 96 93 [facility] - Fall Lab Data Labs: Lab Results 11/01/20 Range/Units 06:55 Urine Color Yellow Urine Appearance Clear Urine pH 5.5 (4.5-8.0) Ur Specific [place] 1.010 (1.000-1.035) Urine Protein 1+ H (Negative) Urine Glucose (UA) Negative (Negative) g/dL Urine Ketones Negative (NEGATIVE) Urine Occult Blood Negative (Negative) Urine Nitrate Negative (Negative) Urine Bilirubin Negative (NEGATIVE) Urine Urobilinogen 0.2 (0.2) E.U./dL Ur Leukocyte Esterase Negative (NEGATIVE) [facility] Narrative Medical decision making narrative: 85-year-old gentleman with failure to thrive in the setting of multiple medical issues. Significant urinary incontinence and decreased mobility due to severe pain from spinal stenosis lead to fall from which he was unable to get up off the floor this morning. As discussed with the initial questioning we opted to check only urine. He does not have an acute bladder infection. Again discussed options and he very much wants to go home. recognizes that there is minimal benefit to hospital stay in light of his overall condition and is willing to honor his wishes to take him home. She does have follow-up with his primary care physician, Dr. Gautam. Have suggested that they hold his Entresto as that was 1 of the medications recently added that seem to have increased his overall gait instability and unsteadiness. Both the patient and his are well aware they are welcome to return to the emergency department with additional problems or requests for additional help. Discharge Plan Departure Patient Disposition: Home Clinical Impression: Adult failure to thrive Fall Qualifiers: Encounter type: initial encounter Qualified Code(s): W19.XXXA - Unspecified fall, initial encounter Back pain Qualifiers: Back pain location: low back pain Chronicity: chronic Back pain laterality: bilateral Sciatica presence: without sciatica Qualified Code(s): M54.5 - Low back pain Instructions: DI for Low Back Pain Activity Restrictions/Additional Instructions: Thank you for coming in today I am sorry that you have this fall. With the increased unsteadiness after the addition of the new medications, it may be appropriate to hold the ENTRESTO until you discuss it with Dr Gautam. There is no evidence of bladder infection today. I wish you the very best Prescriptions: No Action clopidogrel [Plavix] 75 MG tablet 75 mg PO QDAY Qty: 0 RF: 0 methocarbamol 750 mg tablet 750 mg PO TID RF: 0 aspirin [Adult Aspirin Regimen] 81 mg Tablet,Delayed Release (Dr/Ec) 81 mg PO DAILY RF: 0 atorvastatin 20 mg tablet 40 mg PO DAILY RF: 0 mirtazapine 15 mg Tablet 30 mg PO BEDTIME RF: 0 Norvasc 5 mg PO DAILY RF: 0 pantoprazole 40 mg Tablet,Delayed Release (Dr/Ec) 40 mg PO DAILY RF: 0 Adult One Daily Multivitamin 1 tab PO DAILY RF: 0 nitroglycerin 0.4 mg Tablet, Sublingual 0.4 mg SUBLINGUAL Q5M PRN (Reason: Chest Pain) RF: 0 furosemide [Lasix] 40 mg tablet 40 mg PO DAILY Qty: 10 RF: 0 cholecalciferol (vitamin D3) 1,000 unit capsule 1,000 unit PO DAILY RF: 0 gabapentin 100 mg capsule 100 mg PO TID RF: 0 ferrous sulfate 324 mg (65 mg iron) tablet,delayed release (DR/EC) 65 mg PO DAILY RF: 0 methylprednisolone [Medrol (Praveen)] 4 mg tablets,dose pack See Rx Instructions PO PER PKG DIR Qty: 21 RF: 0 tramadol 50 mg tablet 50 mg PO BID PRN (Reason: pain) Qty: 60 RF: 1 Referrals: Luis Carlos Stewart MD [Primary Care Provider] -
[2020-11-01 08:00] VITALS: BP 165/74; PULSE 94; RESP 29; O2SAT 96
[2020-11-01] MEDS: ACETAMINOPHEN 325 MG TABLET 975 MG PO (08:13)
== END 2020-11-01 08:22 | disposition home or self-care (01) ==
PROVIDERS: Emergency Provider Emergency Medicine; Family Provider Internal Medicine; PCP Internal Medicine
DX: M54.5 Low back pain (principal); R62.7 Adult failure to thrive; R30.0 Dysuria; W19.XXXA Unspecified fall, initial encounter
CPT/HCPCS: 81003; 99282; 99283